=== PATIENT | female | born 1975 | race Caucasian/White ===

== ENCOUNTER → 2016-09-11 | Outpatient (REF) | payer OTHER ==
[~2016-09-11] MED LIST: IBUP600T26 PO; ONDA1TAB15 PO
[2016-09-11 13:07] LABS: BASO % 0.4 % (0.0-1.0); EOS # 0.2 K/mm3 (0.0-0.50); EOS % 2.9 % (0.0-3.0); LARGE UNSTAINED CELL # 0.1 K/mm3 (0.0-0.4); LARGE UNSTAINED CELL % 2.6 % (0.0-4.0); LYMPH % 35.1 % (24.0-44.0); MEAN CORPUSCULAR HEMOGLOBIN 30.9 pg (27.0-33.0); MEAN CORPUSCULAR VOLUME 93.5 fl (80.0-96.0); MONO # 0.3 K/mm3 (0.0-0.8); MONO % 4.8 % (0.0-5.0); NEUTROPHILS % 54.3 % (36.0-66.0); PLATELET COUNT, AUTOMATED 151 k/mm3 (150-450); RED CELL DISTRIBUTION WIDTH 12.5 % (11.5-14.5); WHITE BLOOD COUNT 5.6 K/mm3 (4.0-10.0)
[2016-09-11 13:22] LABS: CALCIUM LEVEL 8.6 MG/DL (8.5-10.1); CREATININE FOR GFR 4.34 MG/DL (0.55-1.02); GLOMERULAR FILTRATION RATE 11.8 (>58); POTASSIUM SERUM 4.1 MEQ/L (3.5-5.1)
[2016-09-11 14:31] LABS: MICROSCOPIC INDICATED? NO (NO)
== END ==
LOC: M SFHCPLAZ 11:24
PROVIDERS: ATTEND Family Medicine
DX: R50.9 Fever, unspecified (principal)

== ENCOUNTER → 2016-10-27 | Outpatient (CLI) | payer OTHER ==
[2016-10-27 18:14] LABS: ALBUMIN 3.6 GM/DL (3.2-5.2); GLOMERULAR FILTRATION RATE 10.1 (>58); PHOSPHORUS LEVEL 2.9 MG/DL (2.5-4.9); POTASSIUM SERUM 4.1 MEQ/L (3.5-5.1)
[2016-10-27 19:08] LABS: MEAN CORPUSCULAR HEMOGLOBIN 31.1 pg (27.0-33.0); MEAN CORPUSCULAR HGB CONC 32.2 g/dl (32.0-36.5); MEAN CORPUSCULAR VOLUME 96.6 fl (80.0-96.0); RED CELL DISTRIBUTION WIDTH 13.1 % (11.5-14.5); WHITE BLOOD COUNT 7.9 K/mm3 (4.0-10.0)
== END ==
LOC: M WUC 15:17
PROVIDERS: ATTEND Internal Medicine Nephrology
DX: N18.4 Chronic kidney disease, stage 4 (severe) (principal); D63.1 Anemia in chronic kidney disease; N25.81 Secondary hyperparathyroidism of renal origin; E55.9 Vitamin D deficiency, unspecified

== ENCOUNTER → 2016-12-13 | Outpatient (REF) | payer OTHER ==
[2016-12-15 09:58] LABS: HEPATITIS B SURFACE ANTIBODY NEGATIVE (POSITIVE)
== END ==
LOC: M LAB REF 17:31
PROVIDERS: ATTEND Internal Medicine Nephrology
DX: N18.6 End stage renal disease (principal)

== ENCOUNTER 2017-05-16 11:54 | Day surgery (SDC) | payer OTHER ==
[~2017-05-16] VITALS: Ht 157.5 cm; Wt 46.3 kg
[~2017-05-16 11:54] MED LIST changes: +CARV6.25 PO; +FERR325T3 PO; +IBUP-1022 PO; -IBUP600T26 PO; -ONDA1TAB15 PO; +ONDA4TAB5 PO; +RENATAB5 PO; +TYLE500T78 PO; +UNIS25TA2 PO; +VITA100067 PO
[2017-05-16] MEDS ORDERED: LR 1,000 ML IV ONE (12:30)
[2017-05-16 12:33] LABS: CONTROL LINE UCG INT CTR LINE PRESENT
[2017-05-16] MEDS ORDERED: D5W/0.2% SODIUM CHLORIDE 1,000 ML IV ONE (13:00)
[2017-05-16] MEDS ORDERED: ROCURONIUM BROMIDE 50 MG/5 ML VIAL As Ordered ONE (13:28)
[2017-05-16] MEDS ORDERED: MIDAZOLAM INJ 2 MG/2 ML VIAL (J2250) As Ordered ONE (13:28)
[2017-05-16] MEDS ORDERED: fentaNYL 100 MCG/2 ML INJECTION (J3010) As Ordered ONE (13:29)
[2017-05-16] MEDS ORDERED: PROPOFOL 200 MG/20 ML VIAL As Ordered ONE (13:29)
[2017-05-16] MEDS ORDERED: ONDANSETRON 4MG/2ML VIAL (J2405) As Ordered ONE (14:48)
[2017-05-16] MEDS ORDERED: GLYCOPYRROLATE INJ 0.2 MG/ML 2 ML VIAL As Ordered ONE (14:50)
[2017-05-16] MEDS ORDERED: LIDOCAINE 1% SDV INJ 30 ML VIAL As Ordered ONE (15:00)
[2017-05-16] MEDS ORDERED: BUPIVACAINE HCL 0.5% 30 ML VIAL As Ordered ONE (15:00)
[2017-05-16] MEDS ORDERED: HEPARIN SOD (PORCINE) 5000 UNITS/ML VIAL As Ordered ONE (15:00)
[2017-05-16] MEDS ORDERED: PERCOCET 5MG/325MG TAB As Ordered ONE ×2 (15:20→16:48)
[2017-05-16] MEDS: PERCOCET 5MG/325MG TAB PO PRN ×2 (15:25→16:55)
[2017-05-16] MEDS ORDERED: fentaNYL 100 MCG/2 ML INJECTION (J3010) IV PRN (15:30)
[2017-05-16] MEDS ORDERED: LR 1,000 ML IV SCH (15:30)
[2017-05-16] MEDS ORDERED: ONDANSETRON 4MG/2ML VIAL (J2405) IV PRN (15:30)
[2017-05-16 17:30] VITALS: BP 136/78
--- NOTE | 2017-05-17 01:02 | ECGEPIP ---
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
--- NOTE | 2017-06-21 15:01 | RO ---
DATE OF PROCEDURE: 05/16/2017 PREOPERATIVE DIAGNOSIS: End stage renal disease, functioning left brachiocephalic arteriovenous fistula. POSTOPERATIVE DIAGNOSIS: End stage renal disease, functioning left brachiocephalic arteriovenous fistula. PROCEDURE: Laparoscopic peritoneal dialysis catheter placement with a 62 cm Curl Tail Catheter placed in the peritoneal cavity. SURGEON: Eva Ulloa MD OUTBOARD SYSTEM OPERATOR: None. ANESTHESIA: General endotracheal anesthesia. ESTIMATED BLOOD LOSS: 30 mL. IV FLUIDS: 200 mL. HEPARIN: None. COMPLICATIONS: None. DRAINS: None. SPECIMENS: None. IMPLANTS: 62 cm Curl Tail Catheter in the peritoneal cavity. INDICATION: The patient is a 42-year-old female who dialyzes through a left brachiocephalic arteriovenous fistula who wishes to transition to a peritoneal dialysis and wishes to have a peritoneal dialysis catheter placed. Risks, benefits and alternative treatment options were discussed with the patient. PROCEDURE: Patient was taken to the operating room and placed supine on the operating room table and then prepped and draped in the standard surgical fashion. A 5 mm Visiport was placed in the left upper quadrant with the left scope within the Visiport under direct laparoscopic visualization after which the peritoneal cavity was insufflated with CO2. A peritoneal dialysis catheter was then brought through a puncture wound in the infraumbilical region, positioned in the pelvis under laparoscopic visualization and then the catheter was tunneled and brought out next to the 5 mm port. The abdomen was desufflated. The catheter was flushed with saline, which turned easily on egress and afterward the 5 mm port was removed. The infraumbilical incision and the incision next to the peritoneal dialysis catheter were approximated using #3-0 Monocryl suture in an inverted interrupted fashion. Steri-Strips and dressings were applied. The patient tolerated the procedure well. All instrument, sponge and needle counts were correct at the end of the case. There were no complications. Dr. Ulloa was present for and directed the entire case. The patient was transferred to the recovery room and subsequently discharged in stable condition.
[2017-06-27] MEDS ORDERED: CARV3.12 PO (03:00)
[2017-06-29] MEDS ORDERED: AMOX500T2 PO (11:45)
[2017-06-29] MEDS ORDERED: POTA10CA PO (11:46)
== END 2017-05-16 17:35 | disposition home or self-care (01) ==
LOC: M SDC 11:54
PROVIDERS: ATTEND Surgery Vascular Surgery
DX: N18.6 End stage renal disease (principal); I12.0 Hypertensive chronic kidney disease with stage 5 chronic kidney disease or end stage renal disease; R29.898 Other symptoms and signs involving the musculoskeletal system; L85.3 Xerosis cutis; Q61.9 Cystic kidney disease, unspecified; Z79.899 Other long term (current) drug therapy; Z99.2 Dependence on renal dialysis; Z86.73 Personal history of transient ischemic attack (TIA), and cerebral infarction without residual deficits; Z72.0 Tobacco use
CPT/HCPCS: 36415; 49324; 84132; 84703; 93005; C1750

== ENCOUNTER 2017-06-26 14:17 | Inpatient (IN) | payer OTHER ==
[2017-06-26 15:43] LABS: KETONE, URINE AUTO RFX NEGATIVE (NEGATIVE); LEUKOCYTE ESTERASE UR AUTO RFX NEGATIVE (NEGATIVE); NITRITE, URINE AUTO RFX NEGATIVE (NEGATIVE); RBC, URINE AUTO RFX 5 /HPF (0-3); SPECIFIC GRAVITY UR AUTO RFX 1.011 (1.002-1.035); SQUAM EPITHELIAL CELL UR AURFX 1 /HPF (0-6); WBC, URINE AUTO RFX 1 /HPF (0-3)
[2017-06-26 19:06] LABS: BASO % 0.1 % (0.0-1.0); EOS # 0.2 10^3/uL (0.0-0.50); EOS % 1.6 % (0.0-3.0); IMMATURE GRANULOCYTE # 0.1 10^3/uL (0-0); IMMATURE GRANULOCYTE % 0.5 % (0-0); LYMPH # 1.8 10^3/uL (1.5-4.5); LYMPH % 11.3 % (24.0-44.0); MEAN CORPUSCULAR HEMOGLOBIN 31.6 pg (27.0-33.0); MEAN CORPUSCULAR HGB CONC 32.6 g/dl (32.0-36.5); MEAN CORPUSCULAR VOLUME 96.9 fl (80.0-96.0); MONO # 0.9 10^3/uL (0.0-0.8); NEUTROPHILS # 12.4 10^3/uL (1.8-7.7); NEUTROPHILS % 80.5 % (36.0-66.0); PLATELET COUNT, AUTOMATED 282 10^3/uL (150-450); RED CELL DISTRIBUTION WIDTH 12.8 % (11.5-14.5); WHITE BLOOD COUNT 15.4 10^3/uL (4.0-10.0)
[2017-06-26] MEDS: NS 500 ML IV (19:09)
[2017-06-26] MEDS: MORPHINE 2 MG/ML 1ML SYRINGE IV ×2 (19:09→21:10)
[2017-06-26 19:25] LABS: INR 1.04
[2017-06-26 19:28] LABS: LACTIC ACID SEPSIS PROTOCOL 0.7 MMOL/L (0.4-2.0)
[2017-06-26 19:30] LABS: ALBUMIN 2.6 GM/DL (3.2-5.2); ALBUMIN/GLOBULIN RATIO 0.72 (1.00-1.93); ALKALINE PHOSPHATASE 57 U/L (45-117); ALT/SGPT 14 U/L (12-78); AMYLASE 25 U/L (25-115); ANION GAP 9 MEQ/L (8-16); AST/SGOT 11 U/L (7-37); BILIRUBIN,DIRECT 0.1 MG/DL (0.0-0.2); BILIRUBIN,TOTAL 0.3 MG/DL (0.2-1.0); BLOOD UREA NITROGEN 31 MG/DL (7-18); CALCIUM LEVEL 7.9 MG/DL (8.5-10.1); CARBON DIOXIDE LEVEL 29 MEQ/L (21-32); CHLORIDE LEVEL 106 MEQ/L (98-107); CREATININE FOR GFR 4.95 MG/DL (0.55-1.02); GLOMERULAR FILTRATION RATE 10.1 (>58); GLUCOSE, FASTING 80 MG/DL (70-105); POTASSIUM SERUM 3.4 MEQ/L (3.5-5.1); SODIUM LEVEL 144 MEQ/L (136-145); TOTAL PROTEIN 6.2 GM/DL (6.4-8.2)
[2017-06-26 19:41] LABS: CONTROL LINE UCG INT CTR LINE PRESENT
[2017-06-27] MEDS: PIPERACILLIN/TAZOBACTAM SOD 2.25 GM in APPROPRIATE DILUENT 1 EA IV ×3 (02:32→18:07)
[2017-06-27] MEDS: VANCOMYCIN HCL 1,000 MG, VIAL MATE ADAPTER 1 EACH in D5W 250 ML IV (03:00)
[2017-06-27] MEDS ORDERED: VANCOMYCIN INTERMITTENT/PULSE DOSING BY CLINICAL PHARMACIST PER DOSING PROTOCOL XX (03:15)
[2017-06-27] MEDS: MORPHINE 2 MG/ML 1ML SYRINGE IV ×2 (04:43→09:53)
[2017-06-27 05:09] LABS: ANION GAP 11 MEQ/L (8-16); BLOOD UREA NITROGEN 32 MG/DL (7-18); CALCIUM LEVEL 7.6 MG/DL (8.5-10.1); CARBON DIOXIDE LEVEL 24 MEQ/L (21-32); CHLORIDE LEVEL 110 MEQ/L (98-107); CREATININE FOR GFR 4.94 MG/DL (0.55-1.02); GLOMERULAR FILTRATION RATE 10.1 (>58); GLUCOSE, FASTING 71 MG/DL (70-105); POTASSIUM SERUM 3.4 MEQ/L (3.5-5.1); SODIUM LEVEL 145 MEQ/L (136-145)
[2017-06-27] MEDS: HEPARIN SOD (PORCINE) 5000 UNITS/ML VIAL SQ ×3 (09:00→21:00)
[2017-06-27] MEDS: VITAMIN D 1,000 INTERNATIONAL UNITS TABLET PO (09:50)
[2017-06-27] MEDS: FERROUS SULFATE 325MG TAB PO ×2 (09:50→20:48)
[2017-06-27] MEDS: PANTOPRAZOLE 40MG INJ (PROTONIX) (C9113) IV (09:50)
[2017-06-27] MEDS: CARVedilol 3.125 MG TAB PO ×2 (09:50→20:44)
[2017-06-27] MEDS: KCL 10MEQ IN 100ML SWI (KRUN) 10 MEQ in APPROPRIATE DILUENT 1 EA IV ×2 (12:00→12:30)
[2017-06-27 15:38] LABS: BF MONONUCLEAR CELL % 66.3 % (0-0); BF POLYMORPHONUCLEAR CELL % 33.7 % (0-0); RBC BODY FLUID < 2 10^3/uL (<2); WBC BODY FLUID 80 /uL (0-10)
[2017-06-27 15:40] LABS: BF DIFF IF INDICATED? YES (NO); PERITONEAL DIALYSATE FL COLOR PALE YELLOW (COLORLESS)
[2017-06-27 19:14] LABS: BF MONONUCLEAR CELL % 69.6 % (0-0); BF POLYMORPHONUCLEAR CELL % 30.4 % (0-0); RBC BODY FLUID < 2 10^3/uL (<2); WBC BODY FLUID 23 /uL (0-10)
[2017-06-27 19:15] LABS: BF DIFF IF INDICATED? YES (NO); PERITONEAL DIALYSATE FL COLOR COLORLESS (COLORLESS)
[2017-06-27] MEDS: POTASSIUM CHLORIDE 10 MEQ SR TABLET PO (20:48)
[2017-06-27] MEDS: ACETAMINOPHEN TAB 650MG DOSE (2X325MG) PO (22:14)
[2017-06-28] MEDS: PIPERACILLIN/TAZOBACTAM SOD 2.25 GM in APPROPRIATE DILUENT 1 EA IV ×3 (02:58→18:00)
[2017-06-28 06:57] LABS: BASO % 0.3 % (0.0-1.0); EOS # 0.3 10^3/uL (0.0-0.50); EOS % 2.4 % (0.0-3.0); IMMATURE GRANULOCYTE # 0.1 10^3/uL (0-0); IMMATURE GRANULOCYTE % 0.5 % (0-0); LYMPH # 1.9 10^3/uL (1.5-4.5); LYMPH % 15.9 % (24.0-44.0); MEAN CORPUSCULAR HEMOGLOBIN 31.5 pg (27.0-33.0); MEAN CORPUSCULAR HGB CONC 32.9 g/dl (32.0-36.5); MEAN CORPUSCULAR VOLUME 95.7 fl (80.0-96.0); MONO # 0.9 10^3/uL (0.0-0.8); MONO % 7.3 % (0.0-5.0); NEUTROPHILS # 8.7 10^3/uL (1.8-7.7); NEUTROPHILS % 73.6 % (36.0-66.0); PLATELET COUNT, AUTOMATED 267 10^3/uL (150-450); RED CELL DISTRIBUTION WIDTH 12.7 % (11.5-14.5); WHITE BLOOD COUNT 11.8 10^3/uL (4.0-10.0)
[2017-06-28 07:13] LABS: ANION GAP 10 MEQ/L (8-16); BLOOD UREA NITROGEN 27 MG/DL (7-18); CALCIUM LEVEL 7.9 MG/DL (8.5-10.1); CARBON DIOXIDE LEVEL 24 MEQ/L (21-32); CHLORIDE LEVEL 108 MEQ/L (98-107); CREATININE FOR GFR 4.65 MG/DL (0.55-1.02); GLOMERULAR FILTRATION RATE 10.9 (>58); GLUCOSE, FASTING 100 MG/DL (70-105); POTASSIUM SERUM 3.2 MEQ/L (3.5-5.1); SODIUM LEVEL 142 MEQ/L (136-145); VANCOMYCIN RANDOM 21.3 UG/ML
[2017-06-28] MEDS: HEPARIN SOD (PORCINE) 5000 UNITS/ML VIAL SQ ×2 (09:00→20:53)
[2017-06-28] MEDS: CARVedilol 3.125 MG TAB PO ×2 (09:00→20:53)
[2017-06-28] MEDS: POTASSIUM CHLORIDE 10 MEQ SR TABLET PO ×3 (09:13→20:58)
[2017-06-28] MEDS: FERROUS SULFATE 325MG TAB PO ×2 (09:13→20:58)
[2017-06-28] MEDS: PANTOPRAZOLE 40MG INJ (PROTONIX) (C9113) IV (09:13)
[2017-06-28] MEDS: VITAMIN D 1,000 INTERNATIONAL UNITS TABLET PO (09:13)
[2017-06-28] MEDS: ACETAMINOPHEN TAB 650MG DOSE (2X325MG) PO ×2 (09:14→22:24)
[2017-06-28] MEDS: VANCOMYCIN HCL 500 MG in D5W MINI-BAG PLUS 100 ML IV (17:02)
[2017-06-28] MEDS ORDERED: VANCOMYCIN HCL 750 MG, VIAL MATE ADAPTER 1 EACH in D5W 250 ML IV (18:00)
[2017-06-28] MEDS: diphenhydrAMINE 25 MG CAP PO (22:24)
[2017-06-29] MEDS: PIPERACILLIN/TAZOBACTAM SOD 2.25 GM in APPROPRIATE DILUENT 1 EA IV ×2 (02:36→11:00)
[2017-06-29 06:17] LABS: BASO % 0.2 % (0.0-1.0); EOS # 0.2 10^3/uL (0.0-0.50); EOS % 1.9 % (0.0-3.0); IMMATURE GRANULOCYTE # 0.1 10^3/uL (0-0); IMMATURE GRANULOCYTE % 0.7 % (0-0); LYMPH # 2.4 10^3/uL (1.5-4.5); LYMPH % 19.3 % (24.0-44.0); MEAN CORPUSCULAR HEMOGLOBIN 31.2 pg (27.0-33.0); MEAN CORPUSCULAR HGB CONC 32.3 g/dl (32.0-36.5); MEAN CORPUSCULAR VOLUME 96.7 fl (80.0-96.0); MONO # 0.8 10^3/uL (0.0-0.8); MONO % 6.6 % (0.0-5.0); NEUTROPHILS # 8.7 10^3/uL (1.8-7.7); NEUTROPHILS % 71.3 % (36.0-66.0); PLATELET COUNT, AUTOMATED 284 10^3/uL (150-450); RED CELL DISTRIBUTION WIDTH 12.8 % (11.5-14.5); WHITE BLOOD COUNT 12.3 10^3/uL (4.0-10.0)
[2017-06-29 06:37] LABS: ANION GAP 9 MEQ/L (8-16); BLOOD UREA NITROGEN 33 MG/DL (7-18); CALCIUM LEVEL 7.7 MG/DL (8.5-10.1); CARBON DIOXIDE LEVEL 26 MEQ/L (21-32); CHLORIDE LEVEL 112 MEQ/L (98-107); CREATININE FOR GFR 4.64 MG/DL (0.55-1.02); GLOMERULAR FILTRATION RATE 10.9 (>58); GLUCOSE, FASTING 86 MG/DL (70-105); POTASSIUM SERUM 3.6 MEQ/L (3.5-5.1); SODIUM LEVEL 147 MEQ/L (136-145); VANCOMYCIN RANDOM 23.9 UG/ML
[2017-06-29] MEDS: HEPARIN SOD (PORCINE) 5000 UNITS/ML VIAL SQ (09:00)
[2017-06-29] MEDS: PANTOPRAZOLE 40MG INJ (PROTONIX) (C9113) IV (09:19)
[2017-06-29] MEDS: FERROUS SULFATE 325MG TAB PO (09:19)
[2017-06-29] MEDS: VITAMIN D 1,000 INTERNATIONAL UNITS TABLET PO (09:19)
[2017-06-29] MEDS: POTASSIUM CHLORIDE 10 MEQ SR TABLET PO (09:19)
[2017-06-29] MEDS: CARVedilol 3.125 MG TAB PO (09:24)
== END 2017-06-29 14:21 | disposition home or self-care (01) ==
LOC: M ED INP 06-27 03:08 → M MSPAV 06-27 13:08 → M ED 14:17
DX: K81.9 Cholecystitis, unspecified (principal); K65.9 Peritonitis, unspecified; E87.0 Hyperosmolality and hypernatremia; I95.9 Hypotension, unspecified; N18.6 End stage renal disease; Q61.3 Polycystic kidney, unspecified; E87.6 Hypokalemia; D63.1 Anemia in chronic kidney disease; K57.30 Diverticulosis of large intestine without perforation or abscess without bleeding; Z79.899 Other long term (current) drug therapy; Z87.440 Personal history of urinary (tract) infections; F17.200 Nicotine dependence, unspecified, uncomplicated

== ENCOUNTER 2018-03-30 08:43 | Observation (INO) | payer MEDICARE, MEDICAID, OTHER ==
[2018-03-30] MEDS: CARVedilol 6.25 MG TAB PO ×2 (09:00→22:05)
[2018-03-30 09:20] LABS: BASO % 0.3 % (0.0-1.0); EOS # 0.2 10^3/uL (0.0-0.50); EOS % 2.2 % (0.0-3.0); HEMATOCRIT 37.1 % (36.0-47.0); HEMOGLOBIN 11.8 g/dl (12.0-15.5); IMMATURE GRANULOCYTE % 0.4 % (0-3.0); LYMPH % 25.8 % (24.0-44.0); MEAN CORPUSCULAR HEMOGLOBIN 31.9 pg (27.0-33.0); MEAN CORPUSCULAR HGB CONC 31.8 g/dl (32.0-36.5); MEAN CORPUSCULAR VOLUME 100.3 fl (80.0-96.0); MONO # 0.4 10^3/uL (0.0-0.8); MONO % 5.4 % (0.0-5.0); NEUTROPHILS # 5.2 10^3/uL (1.8-7.7); NEUTROPHILS % 65.9 % (36.0-66.0); PLATELET COUNT, AUTOMATED 150 10^3/uL (150-450); RED CELL DISTRIBUTION WIDTH 12.5 % (11.5-14.5); WHITE BLOOD COUNT 7.8 10^3/uL (4.0-10.0)
[2018-03-30 09:50] LABS: ALBUMIN 2.8 GM/DL (3.2-5.2); ALBUMIN/GLOBULIN RATIO 0.88 (1.00-1.93); ALKALINE PHOSPHATASE 33 U/L (45-117); ALT/SGPT 20 U/L (12-78); AMYLASE 91 U/L (25-115); ANION GAP 8 MEQ/L (8-16); AST/SGOT 28 U/L (7-37); BILIRUBIN,DIRECT < 0.1 MG/DL (0.0-0.2); BILIRUBIN,TOTAL 0.3 MG/DL (0.2-1.0); BLOOD UREA NITROGEN 39 MG/DL (7-18); C REACTIVE PROTEIN QUANTITATIV < 0.30 MG/DL (0.00-0.30); CALCIUM LEVEL 7.6 MG/DL (8.5-10.1); CARBON DIOXIDE LEVEL 15 MEQ/L (21-32); CHLORIDE LEVEL 122 MEQ/L (98-107); CREATININE FOR GFR 5.61 MG/DL (0.55-1.30); GLOMERULAR FILTRATION RATE 8.7 (>58); GLUCOSE, FASTING 78 MG/DL (70-100); LIPASE 514 U/L (73-393); POTASSIUM SERUM 5.5 MEQ/L (3.5-5.1); SODIUM LEVEL 145 MEQ/L (136-145)
[2018-03-30 09:54] LABS: KETONE, URINE AUTO RFX NEGATIVE (NEGATIVE); LEUKOCYTE ESTERASE UR AUTO RFX NEGATIVE (NEGATIVE); NITRITE, URINE AUTO RFX NEGATIVE (NEGATIVE); RBC, URINE AUTO RFX 1 /HPF (0-3); SPECIFIC GRAVITY UR AUTO RFX 1.009 (1.002-1.035); SQUAM EPITHELIAL CELL UR AURFX 0 /HPF (0-6); WBC, URINE AUTO RFX 0 /HPF (0-3)
[2018-03-30] MEDS ORDERED: ISOVUE-370 76% 100ML VIAL (Q9967) As Ordered (09:56)
[2018-03-30 10:01] LABS: ERYTHROCYTE SEDIMENTATION RATE 22 mm/hr (0-20)
[2018-03-30 10:08] LABS: LACTIC ACID SEPSIS PROTOCOL 0.8 MMOL/L (0.4-2.0)
[2018-03-30] MEDS: MORPHINE 2 MG/ML 1ML SYRINGE (J2270) IV (10:13)
[2018-03-30] MEDS ORDERED: BISACODYL 10 MG SUPP PR (12:00)
[2018-03-30] MEDS ORDERED: PERCOCET 5MG/325MG TAB PO (12:00)
[2018-03-30 19:00] LABS: SOURCE, BODY FLUID PERITONEAL DIALYSATE
[2018-03-30 19:01] LABS: APPEARANCE, BODY FLUID HAZY (CLEAR); BF DIFF IF INDICATED? YES (NO); PERITONEAL DIALYSATE FL COLOR PINK (COLORLESS); RBC BODY FLUID 10 10^3/uL (<2); WBC BODY FLUID 40 /uL (0-10)
[2018-03-30] MEDS: SENOKOT S TAB PO (22:05)
[2018-03-30] MEDS: diphenhydrAMINE INJ 50MG/ML VIAL (J1200) IV (22:05)
[2018-03-30] MEDS: PERCOCET 5MG/325MG TAB PO (22:06)
[2018-03-31] MEDS: ONDANSETRON 4MG/2ML VIAL (J2405) IV (04:40)
[2018-03-31 06:24] LABS: BASO % 0.4 % (0.0-1.0); EOS # 0.2 10^3/uL (0.0-0.50); EOS % 2.7 % (0.0-3.0); HEMATOCRIT 31.8 % (36.0-47.0); HEMOGLOBIN 10.2 g/dl (12.0-15.5); IMMATURE GRANULOCYTE % 0.3 % (0-3.0); LYMPH # 2.4 10^3/uL (1.5-4.5); LYMPH % 32.6 % (24.0-44.0); MEAN CORPUSCULAR HEMOGLOBIN 31.9 pg (27.0-33.0); MEAN CORPUSCULAR HGB CONC 32.1 g/dl (32.0-36.5); MEAN CORPUSCULAR VOLUME 99.4 fl (80.0-96.0); MONO # 0.5 10^3/uL (0.0-0.8); MONO % 7.4 % (0.0-5.0); NEUTROPHILS # 4.2 10^3/uL (1.8-7.7); NEUTROPHILS % 56.6 % (36.0-66.0); PLATELET COUNT, AUTOMATED 136 10^3/uL (150-450); RED CELL DISTRIBUTION WIDTH 12.8 % (11.5-14.5); WHITE BLOOD COUNT 7.3 10^3/uL (4.0-10.0)
[2018-03-31 06:40] LABS: ANION GAP 9 MEQ/L (8-16); BLOOD UREA NITROGEN 53 MG/DL (7-18); CALCIUM LEVEL 7.8 MG/DL (8.5-10.1); CARBON DIOXIDE LEVEL 18 MEQ/L (21-32); CHLORIDE LEVEL 117 MEQ/L (98-107); CREATININE FOR GFR 5.96 MG/DL (0.55-1.30); GLOMERULAR FILTRATION RATE 8.1 (>58); GLUCOSE, FASTING 72 MG/DL (70-100); POTASSIUM SERUM 4.7 MEQ/L (3.5-5.1); SODIUM LEVEL 144 MEQ/L (136-145)
[2018-03-31 08:13] LABS: BF MONONUCLEAR CELL % 79.2 % (0-0); BF POLYMORPHONUCLEAR CELL % 20.8 % (0-0); RBC BODY FLUID < 2 10^3/uL (<2); WBC BODY FLUID 24 /uL (0-10)
[2018-03-31 08:18] LABS: APPEARANCE, BODY FLUID HAZY (CLEAR); BF DIFF IF INDICATED? YES (NO); PERITONEAL FL COLOR COLORLESS (COLORLESS); SOURCE, BODY FLUID PERITONEAL
[2018-03-31] MEDS: SENOKOT S TAB PO (09:26)
[2018-03-31] MEDS: CARVedilol 6.25 MG TAB PO (09:26)
== END 2018-03-31 12:00 | disposition home or self-care (01) ==
LOC: M ED 08:43 → M ED INP 11:56 → M MSPAV 13:56
DX: K65.8 Other peritonitis (principal); N18.6 End stage renal disease; Z79.899 Other long term (current) drug therapy; E87.5 Hyperkalemia; Q61.3 Polycystic kidney, unspecified; I15.0 Renovascular hypertension; F17.210 Nicotine dependence, cigarettes, uncomplicated; E55.9 Vitamin D deficiency, unspecified
CPT/HCPCS: J1200

== ENCOUNTER 2019-04-06 12:48 | Emergency (ER) | payer MEDICARE, MEDICAID ==
[~2019-04-06] VITALS: Ht 157.5 cm; Wt 47.9 kg
[~2019-04-06 12:48] MED LIST changes: +AMOX500T2 PO; +CARV3.12 PO; +KLOR10TA76 PO; +POTA10TA16 PO; -UNIS25TA2 PO; +UNIS25TA3 PO; +VITA200015 PO
[2019-04-06 12:49] VITALS: BP 143/81
[2019-04-06] MEDS ORDERED: ADVI100T PO (12:55)
[2019-04-06] MEDS ORDERED: POTA20TA6 PO (12:55)
[2019-04-06] MEDS ORDERED: MORPHINE 2 MG/ML 1ML VIAL (J2270) IV PRN (13:45)
[2019-04-06] MEDS ORDERED: ONDANSETRON 4MG/2ML VIAL (J2405) IV ONE (13:45)
[2019-04-06 14:40] LABS: BASO % 0.3 % (0.0-1.0); EOS # 0.2 10^3/uL (0.0-0.5); HEMATOCRIT 39.3 % (36.0-47.0); HEMOGLOBIN 12.5 g/dl (12.0-15.5); LYMPH # 1.7 10^3/uL (1.5-5.0); LYMPH % 18.6 % (24.0-44.0); MEAN CORPUSCULAR HGB CONC 31.8 g/dl (32.0-36.5); MEAN CORPUSCULAR VOLUME 100.5 fl (80.0-96.0); MONO # 0.5 10^3/uL (0.0-0.8); MONO % 5.1 % (0.0-5.0); NEUTROPHILS # 6.6 10^3/uL (1.5-8.5); NEUTROPHILS % 73.8 % (36.0-66.0); PLATELET COUNT, AUTOMATED 205 10^3/uL (150-450); RED BLOOD COUNT 3.91 10^6/uL (4.00-5.40)
[2019-04-06 15:26] LABS: ALBUMIN 3.2 GM/DL (3.2-5.2); ALT/SGPT 25 U/L (12-78); BILIRUBIN,DIRECT < 0.1 MG/DL (0.0-0.2); BILIRUBIN,TOTAL 0.3 MG/DL (0.2-1.0); BLOOD UREA NITROGEN 50 MG/DL (7-18); CALCIUM LEVEL 8.1 MG/DL (8.5-10.1); CARBON DIOXIDE LEVEL 20 MEQ/L (21-32); CHLORIDE LEVEL 111 MEQ/L (98-107); CK-MB VALUE MASS 1.8 NG/ML (<3.6); CPK CREATINE PHOSPHOKINASE 124 U/L (26-192); CREATININE FOR GFR 8.55 MG/DL (0.55-1.30); GLOMERULAR FILTRATION RATE 5.3 (>58); GLUCOSE, FASTING 114 MG/DL (70-100); LIPASE 301 U/L (73-393); MB/CK RELATIVE INDEX 1.45 (< OR =4); POTASSIUM SERUM 3.7 MEQ/L (3.5-5.1); SODIUM LEVEL 143 MEQ/L (136-145); TOTAL PROTEIN 6.4 GM/DL (6.4-8.2); TROPONIN I < 0.02 NG/ML (< 0.10)
[2019-04-06] MEDS ORDERED: ISOVUE-370 76% 100ML VIAL (Q9967) As Ordered ONE (15:35)
--- NOTE | 2019-04-06 16:17 | REP ---
CT of the abdomen and pelvis with IV contrast, without bowel contrast for left upper quadrant pain. The the patient perform slightly. Comparison is 03/30/2018. There is a peritoneal dialysis catheter coiled in the abdominal right lower quadrant as previously. There is a small volume of fluid free fluid in the pelvis. There is no pneumoperitoneum. There is no evidence of loculated peritoneal fluid. Innumerable renal cysts are again identified, compatible with polycystic renal disease. Multiple hepatic cysts are again identified, also compatible with polycystic renal disease. The visualized lower lung foster demonstrate a small left pleural effusion as an interval change. The common biliary duct again measures 10 mm in diameter and is mildly dilated. This is unchanged. The pancreas and spleen are unremarkable. The adrenals are unremarkable. The abdominal aorta is unremarkable. There is no retroperitoneal adenopathy or mass. There is no bowel distension or obstruction. There is wall thickening of the descending colon. This is compatible with colitis in the appropriate clinical setting. There are diverticula in the sigmoid colon. There is no evidence of diverticulitis. The uterus and adnexa and bladder are unremarkable. Impression: Wall thickening of the descending colon compatible with colitis in the appropriate clinical setting. Peritoneal dialysis catheter. Small volume of free fluid in the pelvis. No loculated fluid is identified. Mildly chronically dilated common biliary duct, unchanged. Numerous renal and hepatic cysts compatible with polycystic renal disease, unchanged. Small left pleural effusion as an interval change. Sigmoid colon diverticulosis without diverticulitis. Electronically Signed by Max Lambert MD 04/06/2019 04:09 P
[2019-04-06] MEDS ORDERED: ONDA4TAB6 PO (16:43)
[2019-04-06] MEDS ORDERED: CIPR500T3 PO (16:43)
[2019-04-06] MEDS ORDERED: METR-265 PO (16:43)
[2019-04-06] MEDS ORDERED: metroNIDAZOLE (FLAGYL) 500 MG TAB PO ONE (16:45)
[2019-04-06] MEDS ORDERED: CIPROFLOXACIN 500 MG TAB PO ONE (16:45)
[2019-04-06] MEDS ORDERED: NORC1TAB7 PO (16:49)
--- NOTE | 2019-04-06 20:32 | ECGEPIP ---
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
== END 2019-04-06 17:05 | disposition home or self-care (01) ==
LOC: M ED 12:48
DX: K52.9 Noninfective gastroenteritis and colitis, unspecified (principal); K57.30 Diverticulosis of large intestine without perforation or abscess without bleeding; J91.8 Pleural effusion in other conditions classified elsewhere; I12.0 Hypertensive chronic kidney disease with stage 5 chronic kidney disease or end stage renal disease; N18.6 End stage renal disease; Q61.3 Polycystic kidney, unspecified
CPT/HCPCS: 74177; 80048; 80076; 81001; 82550; 82553; 83690; 84484; 85025; 87086; 93005; 93041; 96374; 96375; 99284; J2270; J2405; Q9967

== ENCOUNTER → 2019-11-30 | Outpatient (CLI) | payer MEDICAID ==
[~2019-11-30] MED LIST changes: +ADVI100T PO; +AURY1TAB PO; +CALC1CAP31 PO; +CIPR500T3 PO; +LOSA25TA14 PO; +METR-265 PO; +NORC1TAB7 PO; +ONDA-83 PO; -ONDA4TAB5 PO; +ONDA4TAB6 PO; +PERC5TAB12 PO; +POTA20TA6 PO; +VITA50005 PO
== END ==
LOC: M LABSMTC 11:16
PROVIDERS: ATTEND Anesthesiology
DX: Z01.818 Encounter for other preprocedural examination (principal); Z11.59 Encounter for screening for other viral diseases
CPT/HCPCS: C9803; U0003

== ENCOUNTER 2019-12-03 09:48 | Day surgery (SDC) | payer MEDICARE, MEDICAID ==
[~2019-12-03] VITALS: Ht 157.5 cm; Wt 49.0 kg
[~2019-12-03 09:48] MED LIST changes: -LOSA25TA14 PO; -PERC5TAB12 PO
[2019-12-03] MEDS ORDERED: LIDOCAINE 2% 100MG/5ML SDV (FOR ANES.) As Ordered ONE (10:30)
[2019-12-03] MEDS ORDERED: MIDAZOLAM INJ 2MG/2ML VIAL (J2250 PER 1MG) As Ordered ONE (10:30)
[2019-12-03] MEDS ORDERED: dexameTHASONE 4 MG/ML 1ML VIAL (J1100 PER 1MG) As Ordered ONE (10:30)
[2019-12-03] MEDS ORDERED: propofoL 200 MG/20 ML VIAL As Ordered ONE (10:30)
[2019-12-03] MEDS ORDERED: ONDANSETRON 4MG/2ML VIAL As Ordered ONE (10:30)
[2019-12-03] MEDS ORDERED: fentaNYL 250 MCG/5 ML INJECTION (J3010) As Ordered ONE (10:30)
[2019-12-03 10:42] LABS: POTASSIUM SERUM 4.6 MEQ/L (3.5-5.1)
[2019-12-03] MEDS ORDERED: LOSA25TA14 PO (10:44)
[2019-12-03] MEDS: D5W/0.2% SODIUM CHLORIDE 1,000 ML IV ONE (10:45)
[2019-12-03] MEDS: LIDOCAINE 1% SDV 30ML VIAL As Ordered ONE (11:26)
[2019-12-03] MEDS: ISOVUE-300 61% 50ML VIAL As Ordered ONE (11:27)
[2019-12-03] MEDS: HEPARIN SOD (PORCINE) 5000UNITS/ML VIAL (J1644 PER 1000UNITS) As Ordered ONE (11:27)
[2019-12-03] MEDS: ceFAZolin SOD 2 GM in IV 1 EA IV ONE (13:35)
[2019-12-03] MEDS ORDERED: ePHEDrine SULFATE 25 MG/5 ML(5MG/ML) SYRINGE As Ordered ONE (13:48)
[2019-12-03] MEDS: LIDOCAINE W/EPINEPHRINE 1% 20ML VIAL As Ordered ONE (13:55)
--- NOTE | 2019-12-03 14:26 | ROOPDOC ---
[facility] Report Of Operation Report of Operation DATE OF PROCEDURE: 12/03/19 PREPROCEDURE DIAGNOSES: CHF secondary to left brachial cephalic AV fistula POSTPROCEDURE DIAGNOSES: Same PROCEDURE: Ligation left brachial cephalic AV fistula and ligation of branches. SURGEON: Peggy Kaplan MD ANESTHESIA: LMA and local. INDICATION FOR PROCEDURE: Ms. Varela is a 44-year-old patient with renal insufficiency and a left upper extremity brachiocephalic AV fistula created by another physician that she is not using for dialysis, and recently she's developed congestive heart failure. The suspicion is that the fistula is resulting in heart failure. Since she is not using the fistula for dialysis, the risks benefits and alternatives to fistula ligation were explained to the patient she was agreeable to proceed. Informed consent was obtained. REPORT OF OPERATION: The patient was brought to the OR in stable condition and placed supine on the OR table. Anesthesia and antibiotics were administered without complication. Her left upper extremity was prepped and draped in a sterile fashion. A timeout was performed. Local anesthesia was administered to the skin and subcutaneous tissue over the left antecubital crease at the area of the previous surgical incision. An incision was made over the previous incision and carried carefully down through the dermal tissue to the very superficial an aneurysmal cephalic vein near the AV anastomosis. First, a couple of large branches around fistula were suture ligated. Next, we carefully dissected around the aneurysmal portion of the fistula vein and 2 silk sutures were used to ligate the fistula. We irrigated with saline. The deep tissues were approximated with a running 4-0 Vicryl suture. The skin was closed with running subcuticular Monocryl suture. Mastisol and Steri-Strips were placed over the incision after was cleaned and dried. Of 2 x 2 and small Tegaderm were placed over the Steri- Strips. An Albert wrap was placed from the hand to the axilla to help compress the fistula in the hopes that the aneurysmal portions might decompress and hopefully diminish in size somewhat. The patient was allowed to awaken from anesthesia was taken to recovery in stable condition. She tolerated the procedure and the anesthesia well. There were no complications. ESTIMATED BLOOD LOSS: Approximately 2 mL. COMPLICATIONS: None. PLAN: We will see the patient in a week to check her incision. Ok to remove albert wrap to shower, but no tub baths/swimming/jacuzzi for 2 weeks. Replace albert wrap LUE after shower. Try to wear albert wrap as much as possible over the next week. Steri strips should be left in place for 7 days to help with incision healing. Ok to remove tegaderm and 2 x 2 gauze tomorrow and leave steri strips open to air. No strenuous exercise or lifting >5 lbs with left arm for 1 week. Ok to resume home diet and medications. We appreciate the opportunity to participate in the care of this patient. PEGGY KAPLAN MD Dec 03, 2019 14:26
[2019-12-03] MEDS ORDERED: PERC5TAB12 PO (14:29)
[2019-12-03] MEDS ORDERED: fentaNYL 100 MCG/2 ML INJECTION (J3010) IV PRN (14:45)
[2019-12-03] MEDS ORDERED: HYDROMORPHONE HCL 0.5 MG/ 0.5 ML SYRINGE (J1170 PER 1) IV PRN (14:45)
[2019-12-03] MEDS ORDERED: oxyCODONE 5MG TAB PO PRN (14:45)
[2019-12-03] MEDS ORDERED: ONDANSETRON 4MG/2ML VIAL IV PRN (14:45)
[2019-12-03 15:45] VITALS: BP 143/94
--- NOTE | 2019-12-04 08:38 | ECGEPIP ---
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 Electronically Signed on 12-04-2019 8:38:03 EDT by Karsten Gauthier
== END 2019-12-03 16:15 | disposition home or self-care (01) ==
LOC: M SDC 09:48
PROVIDERS: ATTEND Surgery Vascular Surgery
DX: N18.9 Chronic kidney disease, unspecified (principal); I50.9 Heart failure, unspecified
CPT/HCPCS: 36415; 37607; 81025; 84132; 93005; J0690; J1100; J1644; J2250; J2405; J3010

== ENCOUNTER 2020-11-03 17:25 | Inpatient (IN) | payer MEDICARE, MEDICAID ==
[~2020-11-03] VITALS: Ht 157.5 cm; Wt 50.0 kg
[~2020-11-03 17:25] MED LIST changes: +LOSA25TA14 PO; +PERC5TAB12 PO
[2020-11-03] MEDS ORDERED: ATOR1TAB19 (17:35)
[2020-11-03] MEDS ORDERED: AMLO2.5T3 (17:35)
[2020-11-03] MEDS ORDERED: GABA-282 (17:35)
[2020-11-03] MEDS ORDERED: HYDR-3910 (17:35)
[2020-11-03] MEDS ORDERED: MORPHINE 4 MG/ML 1ML VIAL/SYRINGE (J2270) IV ONE (20:15)
[2020-11-03 20:32] LABS: BASO % 0.3 % (0.0-1.0); EOS # 0.3 10^3/uL (0.0-0.5); EOS % 2.5 % (0.0-3.0); HEMATOCRIT 34.2 % (36.0-47.0); HEMOGLOBIN 10.6 g/dl (12.0-15.5); LYMPH # 1.3 10^3/uL (1.5-5.0); LYMPH % 11.6 % (24.0-44.0); MEAN CORPUSCULAR HEMOGLOBIN 31.5 pg (27.0-33.0); MEAN CORPUSCULAR VOLUME 101.8 fl (80.0-96.0); MONO # 0.9 10^3/uL (0.0-0.8); MONO % 8.4 % (2.0-8.0); NEUTROPHILS # 8.6 10^3/uL (1.5-8.5); NEUTROPHILS % 76.8 % (36.0-66.0); PLATELET COUNT, AUTOMATED 252 10^3/uL (150-450); RED BLOOD COUNT 3.36 10^6/uL (4.00-5.40); WHITE BLOOD COUNT 11.2 10^3/uL (4.0-10.0)
[2020-11-03 20:52] LABS: ALBUMIN 3.3 GM/DL (3.2-5.2); BILIRUBIN,DIRECT 0.1 MG/DL (0.0-0.2); BILIRUBIN,TOTAL 0.3 MG/DL (0.2-1.0); TOTAL PROTEIN 6.6 GM/DL (6.4-8.2)
[2020-11-03] MEDS ORDERED: DOCUSATE SODIUM 100MG CAPSULE PO SCH (21:00)
[2020-11-03 22:13] LABS: CALCIUM LEVEL 9.2 MG/DL (8.5-10.1); GLOMERULAR FILTRATION RATE 2.8 (>58); POTASSIUM SERUM 4.8 MEQ/L (3.5-5.1)
--- NOTE | 2020-11-03 23:30 | REPVR ---
PROCEDURE INFORMATION: Exam: CT Abdomen And Pelvis Without Contrast Exam date and time: 11/03/2020 10:22 PM Age: 45 years old Clinical indication: Abdominal pain; Localized; Left lower quadrant (llq); Additional info: Llq pain (no contrast renal failure) TECHNIQUE: Imaging protocol: Computed tomography of the abdomen and pelvis without contrast. Radiation optimization: All CT scans at this facility use at least one of these dose optimization techniques: automated exposure control; mA and/or kV adjustment per patient size (includes targeted exams where dose is matched to clinical indication); or iterative reconstruction. COMPARISON: CT ABD/PEL W/IV CONTRAST ONLY 04/06/2019 3:51 PM FINDINGS: Tubes, catheters and devices: There is a small amount of pneumoperitoneum but probably introduced from the indwelling peritoneal dialysis catheter. The catheter extends from the region of the umbilicus into the peritoneal cavity and is looped in the right lower quadrant and pelvis. It might be helpful to the give the patient oral contrast and repeat the CT in 3-4 hours. This would help to evaluate for the integrity of bowel since there are bubbles of air. Lungs: Clear lung bases. Heart: The heart is normal in size and there is no pericardial effusion. Liver: There is a 6.6 cm cyst extending anteriorly from the left lobe of the liver. Additional small cysts are identified through the liver. Gallbladder and bile ducts: Normal appearing gallbladder. Pancreas: normal pancreas. Spleen: Normal appearing spleen. Adrenal glands: No evidence of adrenal gland enlargement. Kidneys and ureters: There is very severe polycystic kidney disease with cysts throughout both kidneys too numerous to count and massive enlargement of both kidneys. There is a small amount of renal tissue between these cystic areas. Stomach and bowel: There is moderate thickening of the bowel wall of the transverse colon and hepatic flexure suspicious for focal colitis. Colitis can be caused from inflammation, infection and ischemia. It should also be noted that the peritoneal dialysis catheter traverses below the transverse colon and abuts the right colon. Intraperitoneal space: There is a small amount of fluid in the left pararenal space and in the pelvis. There was fluid within the abdomen in 2019. The catheter was also present in 2019. Vasculature: The aorta is normal in size. Lymph nodes: Small lymph nodes along the aorta. Urinary bladder: Normal urinary bladder. Reproductive: Normal uterus. Bones/joints: Unremarkable. No acute fracture. Soft tissues: Unremarkable. IMPRESSION: 1. There is a small amount of pneumoperitoneum which is probably secondary to the peritoneal dialysis catheter. CT with oral contrast to further evaluate for this. 2. There is moderate thickening of the bowel wall of the transverse colon, hepatic flexure and right colon probably secondary to colitis. This may be inflammatory or infectious colitis and related to irritation from the indwelling peritoneal dialysis catheter which abuts transverse colon and right colon. 3. Massively enlarged kidneys with polycystic kidney. 4. It would be helpful to give the patient oral contrast and wait approximately 3-4 hours to opacify all of the bowel. This would better evaluate the transverse colon and also help exclude any possibility of bowel perforation. 5. Findings were discussed with SHAMA RALPH at 11/03/2020 11:24 PM EDT. COMMENTS: Consistent with the [employer]'s Incidental Findings Committee white paper (J Am Reji Radiol 2018): Any incidental renal lesion less than 1 cm or classified as too small to characterize, or any incidental cystic renal lesion characterized as simple-appearing, is likely benign. No follow-up imaging is recommended for these lesions per consensus recommendations based on imaging criteria. Electronically signed by: Abraham Dover On 11/03/2020 23:30:16 PM
[2020-11-04] MEDS ORDERED: MORPHINE 4 MG/ML 1ML VIAL/SYRINGE (J2270) IV ONE ×2 (00:20→04:50)
[2020-11-04] MEDS ORDERED: MAALOX 30 ML SUSP *UDC PO PRN (01:20)
[2020-11-04] MEDS ORDERED: MOM 30ML SUSPENSION UDC PO PRN (01:20)
[2020-11-04] MEDS ORDERED: ACETAMINOPHEN TAB 650MG DOSE (2X325MG) PO PRN (01:20)
[2020-11-04] MEDS ORDERED: CARV12.5 PO (01:22)
[2020-11-04] MEDS ORDERED: VELP5CHW PO (01:22)
[2020-11-04] MEDS ORDERED: VITA50005 PO (01:22)
[2020-11-04] MEDS ORDERED: HYDR-3910 PO (01:22)
[2020-11-04] MEDS ORDERED: MUPI2OI EXT (01:22)
[2020-11-04] MEDS ORDERED: AURY1TAB PO (01:22)
[2020-11-04] MEDS ORDERED: LOSA100T50 PO (01:22)
[2020-11-04] MEDS ORDERED: NEUR300C PO (01:22)
[2020-11-04] MEDS ORDERED: AMLO2.5T3 PO (01:22)
[2020-11-04] MEDS ORDERED: ATOR1TAB19 PO (01:22)
--- NOTE | 2020-11-04 01:31 | HPEPDOC ---
[facility] Medical History & Physical Date of Admission November 04, 2020 Date of Service: November 04, 2020 History and Physical CHIEF COMPLAINT: Abdominal discomfort HISTORY OF PRESENT ILLNESS: 45 F hx ESRD on PD due to early cystic kidneys presents with abdominal discomfort and diarrhea for the past 3 days. She tells me that starting on Sunday she's been having diarrhea as well as intermittent abdominal discomfort with cramping especially along the lower abdomen specifically not near her peritoneal dialysis catheter. She's also had a poor appetite and decreased food and fluid intake for the past 3 days. Tells me that she was eating in the garden with her family on Sunday and thinks she might of eaten something bad as her sym ptoms started that evening and she had different food from the rest of her family none of whom share similar symptoms. Tells me the abdominal discomfort does not radiate and she's not had similar episodes in the past. She denies a fever or chills denies associated symptoms such as chest pain shortness of breath or dysuria. In the emergency department CT findings were suggestive of infectious colitis. Repeat CT with contrast was done to rule out perforation. Patient will be admitted to medical service for further management. PAST MEDICAL/SURGICAL HISTORY: ESRD on PD Polycystic kidney disease History of intracranial bleed due to aneurysm 2016 s/p coiling of one and clipping of another Frequent UTIs when younger History of migraine headaches which resolved Left arm fistula formation and removal SOCIAL HISTORY: Endorses daily tobacco use Denies illicit drug use FAMILY HISTORY: Reviewed and none contributory to this admission ALLERGIES: Please see below. REVIEW OF SYSTEMS: 10 point review of systems complete all negative otherwise stated in HPI HOME MEDICATIONS: Please see below. PHYSICAL EXAMINATION: Constitutional: Awake and alert, in no apparent distress ENT: Sclera are clear. Mucosa is moist. Respiratory: Lungs CTA bilaterally. No respiratory distress. Cardiovascular: RRR S1 and S2 are normal, no murmur Gastrointestinal: Abdomen is soft, non distended, surprisingly non tender to light and deep palpation, BS present. Musculoskeletal: No lower extremity edema. Neurologic: No focal neurological deficit. Mental Status: A&O x3, normal affect Skin: Warm, dry LABORATORY DATA: See below. IMAGING: See chart CT abdo/pelvis: IMPRESSION: 1. There is a small amount of pneumoperitoneum which is probably secondary to the peritoneal dialysis catheter. CT with oral contrast to further evaluate for this. 2. There is moderate thickening of the bowel wall of the transverse colon, hepatic flexure and right colon probably secondary to colitis. This may be inflammatory or infectious colitis and related to irritation from the indwelling peritoneal dialysis catheter which abuts transverse colon and right colon. 3. Massively enlarged kidneys with polycystic kidney. 4. It would be helpful to give the patient oral contrast and wait approximately 3-4 hours to opacify all of the bowel. This would better evaluate the transverse colon and also help exclude any possibility of bowel perforation. MICROBIOLOGY: Please see below. ASSESSMENT/PLAN 45 F hx ESRD on PD due to early cystic kidneys presents with abdominal discomfort findings suggestive of infectious colitis admitted for medical management. # Abdominal discomfort: possibly infectious gastroenteritis given her history of diarrhea, and CT findings as above. Physical exam benign as above. Started IV cipro and flagyl. Fu BCx. Fu GI panel. Gentle IV fluids. Pain control. - SBP is less likely given her benign physical exam and CT findings however given that she is a PD patient, I ordered peritoneal fluid for cell count to be sure. - Ordered CT abdomen/pelvis with oral contrast to rule out perforation per radiologist recommendations. Follow up results. # ESRD on PD: due to polycystic kidneys. nephrology consulted for management # hx of brain aneurysm with intracranial bleed 2016 # SCD prophylaxis: patient is ambulating. Given history of ICH is a relative contraindication ill hold off on chemical prophylaxis and use TEDs/SCDs only. A Yousef Hospitalist Vital Signs Vital Signs Date Time Temp Pulse Resp B/P (MAP) Pulse Ox O2 Delivery O2 Flow Rate FiO2 11/04/20 00:29 18 Room Air 11/03/20 20:38 97.5 106 139/96 100 Laboratory Data Labs 24H Laboratory Tests 2 11/03/20 18:35: Immature Granulocyte % (Auto) 0.4, Neutrophils (%) (Auto) 76.8H, Lymphocytes (%) (Auto) 11.6L, Monocytes (%) (Auto) 8.4H, Eosinophils (%) (Auto) 2.5, Basophils (%) (Auto) 0.3, Neutrophils # (Auto) 8.6H, Lymphocytes # (Auto) 1.3L, Monocytes # (Auto) 0.9H, Eosinophils # (Auto) 0.3, Basophils # (Auto) 0.0, Nucleated Red Blood Cells % (auto) 0.0, Anion Gap 12, Glomerular Filtration Rate 2.8L, Calcium Level 9.2, Total Bilirubin 0.3, Direct Bilirubin 0.1, Aspartate Amino Transf (AST/SGOT) 13, Alanine Aminotransferase (ALT/SGPT) 22, Alkaline Phosphatase 37L, PH-Cji-H-Type Natriuretic Peptide 868H, Total Protein 6.6, Albumin 3.3, Albumin/Globulin Ratio 1.0L, Lipase 197 11/03/20 20:45: POC Glucose (Misc Panel) 68L, POC Sodium (Misc Panel) 139, POC Potassium (Misc Panel) 4.7, POC Chloride (Misc Panel) 110H, POC Total CO2 (Misc Panel) 19.0L, POC Blood Urea Nitrogen (Misc Panel 72H, POC Ionized Calcium (Misc Panel) 4.6, POC Creatinine (Misc Panel) 16.7H, POC Hematocrit (Misc Panel) 30.0L, Lactic Acid Level 0.6 CBC/BMP Laboratory Tests 11/03/20 18:35 Home Medications Scheduled Amlodipine Besylate (Amlodipine Besylate) 2.5 Mg Tablet, 2.5 MG PO DAILY Atorvastatin Calcium (Atorvastatin Calcium) 10 Mg Tablet, 10 MG PO DAILY Calcitriol (Calcitriol) 0.25 Mcg Capsule, 0.25 MCG PO Q2D Carvedilol (Carvedilol) 12.5 Mg Tablet, 12.5 MG PO BID Ergocalciferol (Vitamin D2) (Vitamin D2) 50,000 Units Cap, 50,000 UNITS PO Q2WK EVERY OTHER SUNDAY Ferric Citrate (Auryxia) 210 Mg Tablet, 630 MG PO WM Folic Acid/Vit B Complex and C (Maren-Karime Tablet) 1 Tab Tab, 1 TAB PO DAILY Gabapentin (Neurontin) 300 Mg Capsule, 300 MG PO QHS Hydralazine HCl (Hydralazine HCl) 25 Mg Tablet, 25 MG PO BID Losartan Potassium (Losartan Potassium) 100 Mg Tablet, 100 MG PO DAILY Mupirocin (Mupirocin) 2 % Oint...g., 1 DOSE EXT DAILY APPLY TO DIALYSIS SITE Sucroferric Oxyhydroxide (Velphoro) 500 Mg Tab.chew, 1,000 MG PO WM Allergies Coded Allergies: No Known Drug Allergies (Verified Allergy, Unknown, 11/19/19) A-FIB/CHADSVASC A-FIB History Current/History of A-Fib/PAF?: No YOUSEF,ENEIDA Viera MD November 04, 2020 01:31
[2020-11-04] MEDS: GASTROGRAFIN SOLUTION 30ML PO SCH ×2 (01:32→01:55)
[2020-11-04] MEDS ORDERED: NS 1,000 ML IV SCH (01:40)
[2020-11-04] MEDS ORDERED: CIPROFLOXACIN 200 MG in IV 1 EA IV SCH (03:00)
[2020-11-04] MEDS ORDERED: ONDANSETRON 4MG/2ML VIAL IV ONE (03:10)
[2020-11-04 03:16] LABS: RSV AMPLIFICATION NEGATIVE (NEGATIVE)
[2020-11-04] MEDS ORDERED: metroNIDAZOLE 500 MG in IV 1 EA IV SCH (04:00)
--- NOTE | 2020-11-04 05:42 | REPVR ---
PROCEDURE INFORMATION: Exam: CT Abdomen And Pelvis Without Contrast Exam date and time: 11/04/2020 12:27 AM Age: 45 years old Clinical indication: Other: See prev CT report; Additional info: ? Pneumoperitoneum on previous CT no contrast TECHNIQUE: Imaging protocol: Computed tomography of the abdomen and pelvis without contrast. Radiation optimization: All CT scans at this facility use at least one of these dose optimization techniques: automated exposure control; mA and/or kV adjustment per patient size (includes targeted exams where dose is matched to clinical indication); or iterative reconstruction. COMPARISON: 1. CT ABD PELVIS W/O CONTRAST 11/03/2020 10:[address] ABD/PEL W/IV CONTRAST ONLY 04/06/2019 3:51:46 PM FINDINGS: Tubes, catheters and devices: There is a Tenckhoff catheter in the pelvis. Lungs: The visualized portions of the lung bases are normal. Liver: There are multiple hepatic cysts, particularly in the left lobe of the liver, unchanged and consistent with the polycystic kidney disease. Gallbladder and bile ducts: There is stable, mild biliary ductal dilation. The gallbladder is normal with no stones or biliary ductal dilation. Pancreas: The pancreas appears unremarkable. No pancreatic ductal dilation identified. Spleen: The unenhanced spleen appears unremarkable. Adrenal glands: The adrenal glands are poorly distinguished. Kidneys and ureters: The kidneys are replaced and expanded by multiple cysts bilaterally, consistent with polycystic kidney disease. Stomach and bowel: There is long segment thickening the entire colon with less pronounced thickening in the rectosigmoid colon. There is a small amount of oral contrast in the small bowel. There is no dilation or thickening of the small bowel. Appendix: The appendix is normal in size. There is intraluminal calcification appendicoliths. Intraperitoneal space: There is a small amount of free fluid in the abdomen and pelvis, which may be residual from peritoneal dialysis. No free intraperitoneal air is appreciated at this time. There is no extravasation of oral contrast. Vasculature: No aortic aneurysm. Lymph nodes: There are multiple small para-aortic lymph nodes. No gross lymphadenopathy is seen. Urinary bladder: The bladder is mostly collapsed. No bladder stones are identified. Reproductive: The uterus is unremarkable. Bones/joints: No suspicious osseous lesions. No acute fractures. Soft tissues: There is is fluid density struck within the subcutaneous tissues of the mid anterior abdominal wall adjacent to the catheter site, which was present previously but appears smaller than on the prior exam April, probably a small seroma related to the catheter. IMPRESSION: 1. There is no persistent free air. A small amount of free fluid is probably related to peritoneal dialysis. 2. Polycystic kidney disease with expansion and replacement of the renal parenchyma by cysts as well as multiple cysts in the liver. 3. Long segment prominent thickening of the wall of the colon with less pronounced thickening in the rectosigmoid colon, indicating a nonspecific colitis, likely infectious or inflammatory in etiology. COMMENTS: Consistent with the [employer]'s Incidental Findings Committee white paper (J Am Reji Radiol 2018): Any incidental renal lesion less than 1 cm or classified as too small to characterize, or any incidental cystic renal lesion characterized as simple-appearing, is likely benign. No follow-up imaging is recommended for these lesions per consensus recommendations based on imaging criteria. Electronically signed by: Mari Mcmullen On 11/04/2020 05:42:38 AM
[2020-11-04 06:43] LABS: HEMATOCRIT 29.8 % (36.0-47.0); HEMOGLOBIN 9.3 g/dl (12.0-15.5); MEAN CORPUSCULAR HEMOGLOBIN 31.6 pg (27.0-33.0); MEAN CORPUSCULAR HGB CONC 31.2 g/dl (32.0-36.5); MEAN CORPUSCULAR VOLUME 101.4 fl (80.0-96.0); PLATELET COUNT, AUTOMATED 204 10^3/uL (150-450); RED BLOOD COUNT 2.94 10^6/uL (4.00-5.40); WHITE BLOOD COUNT 11.2 10^3/uL (4.0-10.0)
[2020-11-04 07:10] LABS: ALBUMIN 2.7 GM/DL (3.2-5.2); BILIRUBIN,TOTAL 0.3 MG/DL (0.2-1.0); CALCIUM LEVEL 8.3 MG/DL (8.5-10.1); GLOMERULAR FILTRATION RATE 2.6 (>58); POTASSIUM SERUM 4.4 MEQ/L (3.5-5.1); TOTAL PROTEIN 5.9 GM/DL (6.4-8.2)
[2020-11-04] MEDS: PANTOPRAZOLE 40MG VIAL (C9113 PER 1) IV SCH (09:06)
[2020-11-04] MEDS: CARVedilol 12.5 MG TAB PO SCH ×2 (09:07→20:09)
[2020-11-04 10:54] VITALS: BP 118/76
[2020-11-04] MEDS ORDERED: MORPHINE 2 MG/ML 1ML VIAL (J2270) IV PRN (11:30)
[2020-11-04] MEDS: ATORVASTATIN 10 MG TAB PO SCH (12:33)
[2020-11-04] MEDS: **hydrALAZINE HCL** 25 MG TAB PO SCH ×2 (12:33→20:10)
[2020-11-04] MEDS: LOSARTAN 50MG TABLET PO SCH (12:33)
[2020-11-04] MEDS: metroNIDAZOLE 500 MG in IV 1 EA IV SCH ×2 (12:34→20:01)
--- NOTE | 2020-11-04 12:52 | IPNPDOC ---
Text Note Date of Service The patient was seen on 11/04/20. NOTE Subjective: No any acute events overnight. Patient stated that she doesn't have nausea, fever, but she has lower abdominal pain, constant. Objective: GENERAL APPEARANCE: NAD HEENT: no scleral icterus, no JVD, EOMI CARDIOVASCULAR: S1S2 LUNGS: CTA ABDOMEN: soft & mildly tender w palpitation in the low abdominal quadrants, peritoneal dialysis catheter in place MUSCULOSKELETAL: no cyanosis, no swelling INTEGUMENT: no generalized pallor NEUROLOGICAL: cranial nerve function from 2-12 intact intact, follows commands, speech not dysarthric Assessment and plan Patient is 45 years old male with past medical history of end-stage renal diseases on peritoneal dialysis presented with abdominal pain. Abdominal pain Patient afebrile, does not have severe abdominal pain, she has mild leukocytosis CT abdomen pelvis showed moderate thickening of the bowel wall of the transverse colon, hepatic flexure and right colon probably secondary to colitis To rule out peritonitis we will check peritoneal dialysate Continue treatment with ciprofloxacin IV and metronidazole IV Nephrology team follows her Polycystic kidney diseases/end-stage renal diseases Follow up with nuclear medicine chief technologist in the outpatient settings History of brain aneurysm History of intracranial bleed in 2016 Hypertension Continue home meds VS,Fishbone, I+O VS, Fishbone, I+O Laboratory Tests 11/03/20 18:35 11/04/20 06:30 Vital Signs Date Time Temp Pulse Resp B/P (MAP) Pulse Ox O2 Delivery O2 Flow Rate FiO2 11/04/20 10:54 98.9 95 20 118/76 (90) 98 Room Air FERMÍN JOHNSON November 04, 2020 12:52
[2020-11-04 14:00] VITALS: BP 96/58
[2020-11-04] MEDS: ONDANSETRON 4MG/2ML VIAL IV SCH ×2 (14:45→20:09)
[2020-11-04] MEDS ORDERED: CIPROFLOXACIN 400 MG in IV 1 EA IV SCH (15:00)
[2020-11-04 15:21] LABS: APPEARANCE, BODY FLUID HAZY (CLEAR); PERITONEAL DIALYSATE FL COLOR COLORLESS (COLORLESS); SOURCE, BODY FLUID PERITONEAL DIALYSATE
[2020-11-04] MEDS: GABAPENTIN 300 MG CAP PO SCH (20:09)
[2020-11-04 22:00] VITALS: BP 109/58
[2020-11-05] MEDS: ONDANSETRON 4MG/2ML VIAL IV SCH ×5 (03:00→21:03)
[2020-11-05] MEDS: metroNIDAZOLE 500 MG in IV 1 EA IV SCH ×2 (04:04→12:20)
[2020-11-05 06:00] VITALS: BP 100/63
[2020-11-05 07:23] LABS: BASO % 0.3 % (0.0-1.0); EOS # 0.3 10^3/uL (0.0-0.5); HEMATOCRIT 25.7 % (36.0-47.0); HEMOGLOBIN 7.9 g/dl (12.0-15.5); LYMPH # 2.1 10^3/uL (1.5-5.0); LYMPH % 29.2 % (24.0-44.0); MEAN CORPUSCULAR HEMOGLOBIN 30.9 pg (27.0-33.0); MEAN CORPUSCULAR HGB CONC 30.7 g/dl (32.0-36.5); MEAN CORPUSCULAR VOLUME 100.4 fl (80.0-96.0); MONO # 0.7 10^3/uL (0.0-0.8); NEUTROPHILS % 56.1 % (36.0-66.0); PLATELET COUNT, AUTOMATED 186 10^3/uL (150-450); RED BLOOD COUNT 2.56 10^6/uL (4.00-5.40); WHITE BLOOD COUNT 7.1 10^3/uL (4.0-10.0)
[2020-11-05 07:53] LABS: ALBUMIN 2.7 GM/DL (3.2-5.2); BILIRUBIN,TOTAL 0.4 MG/DL (0.2-1.0); CREATININE FOR GFR 14.8 MG/DL (0.55-1.30); GLOMERULAR FILTRATION RATE 2.8 (>58); MAGNESIUM LEVEL 2.6 MG/DL (1.8-2.4); POTASSIUM SERUM 4.2 MEQ/L (3.5-5.1); TOTAL PROTEIN 5.4 GM/DL (6.4-8.2)
[2020-11-05] MEDS: **hydrALAZINE HCL** 25 MG TAB PO SCH ×2 (09:00→21:05)
[2020-11-05] MEDS: LOSARTAN 50MG TABLET PO SCH (09:00)
[2020-11-05] MEDS ORDERED: CALCITRIOL 0.25 MCG CAP (S0169) PO SCH (09:00)
[2020-11-05] MEDS: CARVedilol 12.5 MG TAB PO SCH ×2 (10:01→21:04)
[2020-11-05] MEDS: PANTOPRAZOLE 40MG VIAL (C9113 PER 1) IV SCH (10:01)
[2020-11-05] MEDS: ATORVASTATIN 10 MG TAB PO SCH (10:01)
[2020-11-05 11:02] LABS: HEMATOCRIT 27.7 % (36.0-47.0); HEMOGLOBIN 8.8 g/dl (12.0-15.5); MEAN CORPUSCULAR HEMOGLOBIN 31.9 pg (27.0-33.0); MEAN CORPUSCULAR HGB CONC 31.8 g/dl (32.0-36.5); MEAN CORPUSCULAR VOLUME 100.4 fl (80.0-96.0); PLATELET COUNT, AUTOMATED 206 10^3/uL (150-450); RED BLOOD COUNT 2.76 10^6/uL (4.00-5.40); WHITE BLOOD COUNT 8.1 10^3/uL (4.0-10.0)
[2020-11-05] MEDS ORDERED: ZOFR4TAB16 PO (11:14)
[2020-11-05] MEDS ORDERED: METR-265 PO (11:14)
[2020-11-05] MEDS ORDERED: CIPR-249 PO (11:14)
[2020-11-05 11:32] LABS: PERCENT SATURATION 37.6 % (13.2-45.0)
--- NOTE | 2020-11-05 11:56 | DS.PDOC ---
Discharge Summary General Date of Admission November 04, 2020 at 00:16 Date of Discharge 11/06/20 Discharge Summary PROCEDURES PERFORMED DURING STAY: [None]. ADMITTING DIAGNOSES: Abdominal pain Polycystic kidney diseases/end-stage renal diseases History of brain aneurysm Hypertension Anemia of chronic diseases DISCHARGE DIAGNOSES: Abdominal pain Polycystic kidney diseases/end-stage renal diseases History of brain aneurysm Hypertension Anemia of chronic diseases COMPLICATIONS/CHIEF COMPLAINT: Colitis. HISTORY OF PRESENT ILLNESS:45 F hx ESRD on PD due to early cystic kidneys presents with abdominal discomfort and diarrhea for the past 3 days. She tells me that starting on Sunday she's been having diarrhea as well as intermittent abdominal discomfort with cramping especially along the lower abdomen specifically not near her peritoneal dialysis catheter. She's also had a poor appetite and decreased food and fluid intake for the past 3 days. Tells me that she was eating in the garden with her family on Sunday and thinks she might of eaten something bad as her symptoms started that evening and she had different food from the rest of her family none of whom share similar symptoms. Tells me the abdominal discomfort does not radiate and she's not had similar episodes in the past. She denies a fever or chills denies associated symptoms such as chest pain shortness of breath or dysuria. In the emergency department CT findings were suggestive of infectious colitis. Repeat CT with contrast was done to rule out perforation. Patient will be admitted to medical service for further management. HOSPITAL COURSE: During the hospital stay following issue addressed Abdominal pain Patient afebrile, does not have severe abdominal pain, she has mild leukocytosis CT abdomen pelvis showed moderate thickening of the bowel wall of the transverse colon, hepatic flexure and right colon probably secondary to colitis peritoneal dialysate does not suggest peritonitis Patient received treatment with ciprofloxacin IV and metronidazole IV. Today stool cx positive for C diff , vancomycin PO started Nephrology team follows her End-stage renal diseases Follow up with rural carrier in the outpatient settings History of brain aneurysm History of intracranial bleed in 2016 Hypertension Continue home meds DISCHARGE MEDICATIONS: Please see below. ALLERGIES: Please see below. PHYSICAL EXAMINATION ON DISCHARGE: VITAL SIGNS: Please see below. GENERAL APPEARANCE: NAD HEENT: no scleral icterus, no JVD, EOMI CARDIOVASCULAR: S1S2 LUNGS: CTA ABDOMEN: soft & mildly tender w palpitation in the low abdominal quadrants, peritoneal dialysis catheter in place MUSCULOSKELETAL: no cyanosis, no swelling INTEGUMENT: no generalized pallor NEUROLOGICAL: cranial nerve function from 2-12 intact intact, follows commands, speech not dysarthric LABORATORY DATA: Please see below. IMAGING: See above PROGNOSIS: Fair ACTIVITY: [As tolerated]. DIET: Cardiac DISPOSITION: Home ITEMS TO FOLLOWUP ON ON OUTPATIENT: Follow-up with rural carrier and PCP DISCHARGE CONDITION: [Stable]. TIME SPENT ON DISCHARGE:40minutes. Vital Signs/I&Os Vital Signs Date Time Temp Pulse Resp B/P (MAP) Pulse Ox O2 Delivery O2 Flow Rate FiO2 11/05/20 10:01 77 103/64 11/05/20 06:00 98.8 18 96 Room Air I&O- Last 24 Hours up to 6 AM 11/05/20 06:00 Intake Total 6550 ml Output Total 4800 ml Balance 1750 ml Laboratory Data Labs 24H Laboratory Tests 2 11/04/20 14:13: Body Fluid Source PERITONEAL DIALYSATE, Body Fluid WBC (Auto) 38H, Body Fluid RBC (Auto) < 2, Body Fluid Mononuclear Cells % Auto 84.2H, Fluid Polymorphonuclear Cell % Auto 15.8H, Peritoneal Fluid Color COLORLESS, Peritoneal Fluid Appearance HAZY 11/05/20 06:49: Immature Granulocyte % (Auto) 0.4, Neutrophils (%) (Auto) 56.1, Lymphocytes (%) (Auto) 29.2, Monocytes (%) (Auto) 10.0H, Eosinophils (%) (Auto) 4.0H, Basophils (%) (Auto) 0.3, Neutrophils # (Auto) 4.0, Lymphocytes # (Auto) 2.1, Monocytes # (Auto) 0.7, Eosinophils # (Auto) 0.3, Basophils # (Auto) 0.0, Nucleated Red Blo od Cells % (auto) 0.0, Anion Gap 10, Glomerular Filtration Rate 2.8L, Calcium Level 8.0L, Magnesium Level 2.6H, Total Bilirubin 0.4, Aspartate Amino Transf (AST/SGOT) 6L, Alanine Aminotransferase (ALT/SGPT) 14, Alkaline Phosphatase 33L, Total Protein 5.4L, Albumin 2.7L, Albumin/Globulin Ratio 1.0L 11/05/20 10:39: Nucleated Red Blood Cells % (auto) 0.0, Iron Level 79, Total Iron Binding Capacity 210L, Transferrin % Saturation 37.6 11/05/20 11:08: Lab Scanned Report Miscellaneous Lab CBC/BMP Laboratory Tests 11/05/20 06:49 11/05/20 10:39 Microbiology Microbiology 11/04/20 Blood Culture - Preliminary, Resulted No growth after 24 hours . All specim... 11/04/20 Blood Culture - Preliminary, Resulted No growth after 24 hours . All specim... Discharge Medications Scheduled Amlodipine Besylate (Amlodipine Besylate) 2.5 Mg Tablet, 2.5 MG PO DAILY, (Reported) Atorvastatin Calcium (Atorvastatin Calcium) 10 Mg Tablet, 10 MG PO DAILY, (Reported) Calcitriol (Calcitriol) 0.25 Mcg Capsule, 0.25 MCG PO Q2D, (Reported) Carvedilol (Carvedilol) 12.5 Mg Tablet, 12.5 MG PO BID, (Reported) Ergocalciferol (Vitamin D2) (Vitamin D2) 50,000 Units Cap, 50,000 UNITS PO Q2WK, (Reported) EVERY OTHER SUNDAY Ferric Citrate (Auryxia) 210 Mg Tablet, 630 MG PO WM, (Reported) Folic Acid/Vit B Complex and C (Maren-Karime Tablet) 1 Tab Tab, 1 TAB PO DAILY, (Reported) Gabapentin (Neurontin) 300 Mg Capsule, 300 MG PO QHS, (Reported) Hydralazine HCl (Hydralazine HCl) 25 Mg Tablet, 25 MG PO BID, (Reported) Losartan Potassium (Losartan Potassium) 100 Mg Tablet, 100 MG PO DAILY, (Reported) Mupirocin (Mupirocin) 2 % Oint...g., 1 DOSE EXT DAILY, (Reported) APPLY TO DIALYSIS SITE Ondansetron HCl (Zofran) 4 Mg Tablet, 4 MG PO Q6H Sucroferric Oxyhydroxide (Velphoro) 500 Mg Tab.chew, 1,000 MG PO WM, (Reported) Vancomycin Hcl (Vancomycin HCl) 125 Mg Capsule, 125 MG PO QID Allergies Coded Allergies: No Known Drug Allergies (Verified Allergy, Unknown, 11/19/19) FERMÍN JOHNSON DO November 05, 2020 11:55
[2020-11-05 12:38] LABS: HEMATOCRIT 26.1 % (36.0-47.0); HEMOGLOBIN 8.2 g/dl (12.0-15.5)
--- NOTE | 2020-11-05 13:12 | CR ---
CONSULTATION DATE: 11/04/2020 REQUESTING PHYSICIAN: FERMÍN JOHNSON DO CONSULTING PHYSICIAN: XU ADAMSON DO REASON FOR CONSULTATION: Management of endstage renal disease on peritoneal dialysis. CHIEF COMPLAINT: Abdominal discomfort. HISTORY OF PRESENT ILLNESS: Ms. Varela is well-known to me. She is a 45-year-old female with a past medical history of endstage renal disease on peritoneal dialysis secondary to polycystic kidney disease and other comorbid conditions mentioned below. Patient presented to the Emergency Room with a complaint of abdominal discomfort and diarrhea that started on Sunday. She reports a poor appetite and nausea but denies vomiting. She does not have a prior history of peritonitis. She denies any issues with the peritoneal catheter exit site. She denies fevers or chills, or dysuria. In the Emergency Room, she was found to have mild leukocytosis with white count of 11,[address] scan of the abdomen and pelvis revealed moderate thickening of the bowel wall of the transverse colon, probably secondary to colitis. The patient was started on IV Flagyl and Ciprofloxacin. A Nephrology consultation was requested for help in the management of her peritoneal dialysis. PAST MEDICAL HISTORY: Endstage renal disease secondary to polycystic kidneys on peritoneal dialysis, history of anemia of chronic kidney disease, renovascular hypertension, chronic active smoker, dyslipidemia, history of left arm fistula ligation, secondary hyperparathyroidism of renal origin. PAST SURGICAL HISTORY: Peritoneal dialysis catheter, AV fistula, left brachiocephalic status post ligation in December 2019, , SOCIAL HISTORY: She is a daily smoker. Denies drugs or alcohol. FAMILY HISTORY: Polycystic kidney disease. HOME MEDICATIONS: Reviewed and include: Amlodipine, Atorvastatin, Calcitriol, Carvedilol, vitamin D, Auryxia, Gabapentin, Hydralazine, Losartan, Velphoro. REVIEW OF SYSTEMS: Constitutional: Denies fevers or chills. Eyes: Denies tearing or change in vision. ENT: Denies rhinorrhea or epistaxis. Cardiac: Denies chest pain or palpitations. Respiratory: Denies shortness of breath or cough. Gastrointestinal: Reports diarrhea and abdominal discomfort and poor appetite. Genitourinary: She still makes urine. She denies any dysuria. Endocrine: Reports secondary hyperparathyroidism of renal origin. Denies diabetes. Hematologic: Reports anemia of chronic renal failure. Denies anticoagulant use. Neurologic: Denies seizure or syncope. Skin: Denies any new rashes or ulcers. Denies any trouble with the peritoneal dialysis catheter exit site. Musculoskeletal: Denies arthralgias, myalgias or leg swelling. Psychiatric: Denies anxiety or depression. The remainder of review of systems is negative or as per HPI. PHYSICAL EXAMINATION: VITAL SIGNS: Temperature is 97.5, pulse is 106, respiratory rate 18, blood pressure is 139/96, saturating 100% on room air. GENERAL: Patient is seen lying in bed awake, alert and oriented, comfortable, in no apparent distress. HEENT: Extraocular muscles are intact. Tongue is moist. NECK: Supple. Jugular veins are not elevated. HEART: Heart sounds are regular S1 and S2. LUNGS: Clear to auscultation bilaterally. No crackle, rale or rhonchus. ABDOMEN: Massively enlarged and palpable kidneys. PD catheter exit site is clean, dry and intact. MUSCULOSKELETAL: There is no leg edema, clubbing or cyanosis. NEUROLOGIC: There is no focal deficit. She is oriented x3 at baseline mentation. SKIN: Warm and dry, normal turgor. PSYCHIATRIC: Appropriate mood and affect. LABORATORY DATA: White count 11.2, hemoglobin 9.3, platelets 204,000. Sodium is 141, potassium is 4.4, bicarbonate 18, BUN 72, glucose is 83, albumin is 2.7. Peritoneal dialysis cell count shows fluid WBC of only 38. Blood cultures showed no growth for [address] of the abdomen and pelvis as mentioned above shows massively enlarged kidneys and thickening of the wall of the colon consistent with colitis. INPATIENT MEDICATIONS: She is receiving IV Ciprofloxacin and IV Flagyl, Tylenol p.r.n., Mylanta p.r.n., amlodipine 2.5 mg p.o. daily, Lipitor 10 mg p.o. daily, Calcitriol 0.25 mcg every other day, Carvedilol 12.5 mg p.o. twice daily, Gabapentin 300 mg p.o. q.h.s., hydralazine 25 mg p.o. b.i.d., Losartan 100 mg p.o. daily, Zofran p.r.n., Protonix 40 mg IV daily. PROBLEMS: 1. Endstage renal disease on peritoneal dialysis. Orders are written for five exchanges daily, all of them one liter volume and 1.5% dianeal. Her volume status and electrolytes are acceptable and no change is being made to the current prescription. 2. Abdominal pain. Patient has mild leukocytosis. CT of the abdomen showed moderate thickening of the bowel wall of the transverse colon and right colon probably secondary to colitis. Her PD cell count was negative for peritonitis. She was treated by the primary team with Ciprofloxacin and Flagyl. 3. Renovascular hypertension, blood pressures are well-controlled and no change is being made to her home regimen. 4. Anemia of chronic renal failure. Hemoglobin is 9.3 which is slightly below goal and iron stores are sent and pending. She receives Erythropoietin in the outpatient peritoneal dialysis clinic. 5. Secondary hyperparathyroidism of renal origin. She continues on Calcitriol along with her phosphorus binders. Thank you for involving me in the care of Ms. Varela. I will be happy to follow her along with you.
--- NOTE | 2020-11-05 13:19 | IPN ---
PROGRESS NOTE DATE: 11/05/2020 SUBJECTIVE: Delmi is seen and examined this morning at the bedside. She reports she feels better. She states her abdominal pain is improving. Her leukocytosis has resolved, however, labs today also showed worsening anemia and a repeat CBC was sent. Patient denies any blood in the stool. Her peritoneal dialysis exchanges have been uneventful. PHYSICAL EXAMINATION: VITAL SIGNS: Temperature 98.9, pulse 95, respiratory rate 20, blood pressure 118/76, saturating 98% on room air. INTAKE/OUTPUT: Review of I and O's yesterday shows net positive 1.4 liters. Weight in the bed scale today is not recorded. GENERAL: Patient is seen awake, alert, oriented, lying in bed comfortable in no distress. HEENT: Extraocular muscles are intact. Tongue is moist. Neck is supple. Jugular veins are not elevated. HEART: Sounds are regular, S1, S2. LUNGS: Clear to auscultation bilaterally. No crackle or rale. ABDOMEN: Distended with her enlarged kidneys and there is also some peritoneal dialysis fluid in place. Her PD catheter exit site was not examined today, yesterday's exam was benign. EXTREMITIES: Are negative for cyanosis, clubbing or edema. NEUROLOGIC: She is oriented x3, at baseline mentation. LAB STUDIES: White count 8.1, hemoglobin 7.9, repeat hemoglobin 8.8, platelets 206,000. Sodium 137, potassium 4.2, BUN 65. Transferrin saturation 37%, iron 79. INPATIENT MEDICATIONS: Reviewed by myself. She continues on I.V. Ciprofloxacin and I.V. Flagyl. The remainder of her medications are unchanged as compared to yesterday. PROBLEMS: 1. End-stage renal disease on peritoneal dialysis: Continue current prescription, 1 liter exchange done 5 times a day, all 1.5% Dianeal. She has no issues with her peritoneal dialysis exchanges. Her exit site is intact. Her PD fluid was negative for infection. Her electrolytes and volume status are acceptable. 2. Renovascular hypertension: Blood pressures are well controlled, no changes are being made to the current regimen. 3. Colitis: Patient is treated by the primary team with I.V. Ciprofloxacin and I.V. Flagyl. Her white count has resolved. She is symptomatically feeling improved. She is likely to be discharged on oral antibiotics. 4. Anemia of chronic renal failure: Her hemoglobin is slightly down trended, but a repeat CBC was done this morning to assess stability. Her iron stores are likewise intact. She will have repeat blood work done in the peritoneal dialysis clinic this month. A stool occult blood is also pending along with a GI panel.
[2020-11-05 14:00] VITALS: BP 116/80
[2020-11-05] MEDS ORDERED: VANC125C3 PO (14:38)
--- NOTE | 2020-11-05 15:29 | IPNPDOC ---
Text Note Date of Service The patient was seen on 11/05/20. NOTE Subjective: Patient developed 4 liquid bowel movements in the morning. No fever or chills Objective: GENERAL APPEARANCE: NAD HEENT: no scleral icterus, no JVD, EOMI CARDIOVASCULAR: S1S2 LUNGS: CTA ABDOMEN: soft & mildly tender w palpitation in the low abdominal quadrants, peritoneal dialysis catheter in place MUSCULOSKELETAL: no cyanosis, no swelling INTEGUMENT: no generalized pallor NEUROLOGICAL: cranial nerve function from 2-12 intact intact, follows commands, speech not dysarthric Assessment and plan Patient is 45 years old male with past medical history of end-stage renal diseases on peritoneal dialysis presented with abdominal pain. Abdominal pain/pseudomembranous colitis Patient afebrile, does not have severe abdominal pain, she has mild leukocytosis CT abdomen pelvis showed moderate thickening of the bowel wall of the transverse colon, hepatic flexure and right colon probably secondary to colitis peritoneal dialysate negative for peritonitis Stool culture came back positive for C. difficile colitis. Vancomycin by mouth started. DC Cipro IV, Flagyl IV Polycystic kidney diseases/end-stage renal diseases Follow up with jig boring machine operator for metal in the outpatient settings History of brain aneurysm History of intracranial bleed in 2016 Hypertension Continue home meds VS,Fishbone, I+O VS, Fishbone, I+O Laboratory Tests 11/05/20 06:49 11/05/20 10:39 11/05/20 12:15 Vital Signs Date Time Temp Pulse Resp B/P (MAP) Pulse Ox O2 Delivery O2 Flow Rate FiO2 11/05/20 10:01 77 103/64 11/05/20 06:00 98.8 18 96 Room Air I&O- Last 24 Hours up to 6 AM 11/05/20 06:00 Intake Total 6550 ml Output Total 4800 ml Balance 1750 ml FERMÍN JOHNSON DO November 05, 2020 15:29
[2020-11-05] MEDS: VANCOMYCIN ORAL SOL 250MG/5ML ORAL SYRINGE PO SCH (18:27)
[2020-11-05] MEDS: GABAPENTIN 300 MG CAP PO SCH ×2 (21:00→21:03)
[2020-11-05 22:00] VITALS: BP 132/82
[2020-11-06] MEDS: VANCOMYCIN ORAL SOL 250MG/5ML ORAL SYRINGE PO SCH ×3 (00:19→11:11)
[2020-11-06] MEDS: ONDANSETRON 4MG/2ML VIAL IV SCH ×2 (04:00→11:11)
[2020-11-06 06:00] VITALS: BP 115/83
[2020-11-06 07:54] LABS: BASO % 0.4 % (0.0-1.0); EOS # 0.3 10^3/uL (0.0-0.5); EOS % 3.9 % (0.0-3.0); HEMATOCRIT 26.4 % (36.0-47.0); HEMOGLOBIN 8.4 g/dl (12.0-15.5); LYMPH # 1.8 10^3/uL (1.5-5.0); MEAN CORPUSCULAR HEMOGLOBIN 31.6 pg (27.0-33.0); MEAN CORPUSCULAR HGB CONC 31.8 g/dl (32.0-36.5); MEAN CORPUSCULAR VOLUME 99.2 fl (80.0-96.0); MONO # 0.7 10^3/uL (0.0-0.8); MONO % 9.3 % (2.0-8.0); NEUTROPHILS # 4.4 10^3/uL (1.5-8.5); NEUTROPHILS % 60.7 % (36.0-66.0); PLATELET COUNT, AUTOMATED 203 10^3/uL (150-450); RED BLOOD COUNT 2.66 10^6/uL (4.00-5.40); WHITE BLOOD COUNT 7.2 10^3/uL (4.0-10.0)
[2020-11-06 08:37] LABS: ALBUMIN 2.8 GM/DL (3.2-5.2); BILIRUBIN,TOTAL 0.3 MG/DL (0.2-1.0); CALCIUM LEVEL 8.2 MG/DL (8.5-10.1); CREATININE FOR GFR 14.6 MG/DL (0.55-1.30); GLOMERULAR FILTRATION RATE 2.9 (>58); MAGNESIUM LEVEL 2.7 MG/DL (1.8-2.4); POTASSIUM SERUM 4.2 MEQ/L (3.5-5.1); TOTAL PROTEIN 5.6 GM/DL (6.4-8.2)
[2020-11-06] MEDS: PANTOPRAZOLE 40MG VIAL (C9113 PER 1) IV SCH (09:51)
[2020-11-06 09:54] VITALS: BP 139/91
[2020-11-06] MEDS: LOSARTAN 50MG TABLET PO SCH (09:54)
[2020-11-06] MEDS: ATORVASTATIN 10 MG TAB PO SCH (09:55)
[2020-11-06] MEDS: **hydrALAZINE HCL** 25 MG TAB PO SCH (09:55)
[2020-11-06] MEDS: CARVedilol 12.5 MG TAB PO SCH (09:56)
[2020-11-09] MEDS ORDERED: VITAMIN D 50,000 UNITS CAPSULE (ERGOCALCIFEROL 1.25MG) PO SCH (09:00)
== END 2020-11-06 11:33 | disposition home or self-care (01) | DRG 391 ==
LOC: M ED 17:25 → M ED INP 11-04 00:16 → ENRESERV 11-04 03:55 → M MSPAV 11-04 10:48
PROVIDERS: ADMIT Family Medicine; ATTEND Internal Medicine
DX: A09 Infectious gastroenteritis and colitis, unspecified (principal); N18.6 End stage renal disease; Q61.3 Polycystic kidney, unspecified; N25.81 Secondary hyperparathyroidism of renal origin; I12.0 Hypertensive chronic kidney disease with stage 5 chronic kidney disease or end stage renal disease; D63.1 Anemia in chronic kidney disease; Z79.899 Other long term (current) drug therapy

== ENCOUNTER → 2021-02-08 | Outpatient (CLI) | payer MEDICARE, MEDICAID ==
[~2021-02-08] MED LIST changes: +AMLO2.5T3; +AMLO2.5T3 PO; +ATOR1TAB19; +ATOR1TAB19 PO; +CARV12.5 PO; +CIPR-249 PO; +ERGO500029 PO; +GABA-282; +HYDR-3910; +HYDR-3910 PO; +LOSA100T50 PO; +MUPI2OI EXT; +NEUR300C PO; +VANC125C3 PO; +VELP5CHW PO; -VITA50005 PO; +ZOFR4TAB16 PO
--- NOTE | 2021-02-08 16:10 | REP ---
INDICATION: RIGHT THUMB INJURY. COMPARISON: None. TECHNIQUE: Three views. FINDINGS: Nondisplaced fracture distal phalanx. Soft tissue swelling. IMPRESSION: Nondisplaced fracture distal phalanx. <Electronically signed by Michi Garcia > 02/08/21 [id number]
== END ==
LOC: M WUC 15:29
PROVIDERS: ATTEND Physician Assistant Medical
DX: S62.521A Displaced fracture of distal phalanx of right thumb, initial encounter for closed fracture (principal); X58.XXXA Exposure to other specified factors, initial encounter; Y92.89 Other specified places as the place of occurrence of the external cause; Y93.89 Activity, other specified; Y99.8 Other external cause status

== ENCOUNTER → 2021-02-10 | Outpatient (CLI) | payer MEDICARE, MEDICAID | LOC: M LABSMTC 11:08 | PROVIDERS: ATTEND Anesthesiology | DX: Z01.812 Encounter for preprocedural laboratory examination (principal); Z20.822 Contact with and (suspected) exposure to COVID-19 ==

== ENCOUNTER 2021-02-15 06:12 | Day surgery (SDC) | payer MEDICARE, MEDICAID ==
[~2021-02-15] VITALS: Ht 157.5 cm; Wt 50.3 kg
[~2021-02-15 06:12] MED LIST changes: +NS 1,000 ML IV ONE; +ceFAZolin SOD 2 GM in IV 1 EA IV ONE
[2021-02-15] MEDS ORDERED: LIDOCAINE 2% 100MG/5ML SDV (FOR ANES.) As Ordered ONE (07:06)
[2021-02-15] MEDS ORDERED: ROCURONIUM BROMIDE 50 MG/5 ML VIAL As Ordered ONE (07:06)
[2021-02-15] MEDS ORDERED: fentaNYL 100 MCG/2 ML INJECTION (J3010) As Ordered ONE (07:06)
[2021-02-15] MEDS ORDERED: MIDAZOLAM INJ 2MG/2ML VIAL (J2250 PER 1MG) As Ordered ONE (07:06)
[2021-02-15] MEDS ORDERED: propofoL 200 MG/20 ML VIAL As Ordered ONE (07:06)
[2021-02-15] MEDS ORDERED: BUPIVACAINE HCL 0.25% 10ML VIAL As Ordered ONE (07:29)
[2021-02-15] MEDS ORDERED: BUPIVACAINE LIPOSOME/PF 1.3% 20ML VIAL (13.3MG/ML)(EXPAREL)(C9290 PER1MG) As Ordered ONE (07:30)
[2021-02-15] MEDS ORDERED: HEPARIN SOD (PORCINE) 5000UNITS/ML 1ML VIAL/SYRINGE As Ordered ONE (07:31)
[2021-02-15] MEDS ORDERED: LIDOCAINE 1% SDV 30ML VIAL As Ordered ONE (07:33)
[2021-02-15] MEDS ORDERED: ONDANSETRON 4MG/2ML VIAL As Ordered ONE ×3 (08:19→11:04)
[2021-02-15] MEDS ORDERED: dexameTHASONE 4 MG/ML 1ML VIAL (J1100 PER 1MG) As Ordered ONE (08:19)
[2021-02-15] MEDS ORDERED: PHENYLephrine 500MCG 5ML (100MCG/ML) SYRINGE As Ordered ONE (08:38)
[2021-02-15] MEDS ORDERED: ePHEDrine SULFATE 25 MG/5 ML(5MG/ML) SYRINGE As Ordered ONE (08:38)
[2021-02-15] MEDS ORDERED: HYDROmorphone HCL 2 MG/ML 1ML VIAL (J1170) As Ordered ONE (09:19)
[2021-02-15] MEDS ORDERED: NEOSTIGMINE 10MG/10ML VIAL (J2710 PER 0.5MG) As Ordered ONE (10:33)
[2021-02-15] MEDS ORDERED: GLYCOPYRROLATE INJ 0.2 MG/ML 2 ML VIAL As Ordered ONE (10:33)
--- NOTE | 2021-02-15 11:06 | REP ---
INDICATION: INSERTION RIGHT JUGULAR CATHETER. COMPARISON: None. TECHNIQUE: Single C-arm view chest. FINDINGS: A double-lumen central venous catheter is seen with the tip the junction of the superior vena cava and right atrium. IMPRESSION: 4 seconds of fluoroscopy time was utilized. <Electronically signed by Max Chan > 02/15/21 [id number]
[2021-02-15] MEDS ORDERED: oxyCODONE 5MG TAB PO PRN (11:10)
[2021-02-15] MEDS ORDERED: fentaNYL 100 MCG/2 ML INJECTION (J3010) IV PRN (11:10)
[2021-02-15] MEDS ORDERED: ONDANSETRON 4MG/2ML VIAL IV PRN (11:10)
[2021-02-15] MEDS ORDERED: METOCLOPRAMIDE INJ 10MG/2ML VIAL (J2765 PER 1) As Ordered ONE (11:24)
[2021-02-15] MEDS ORDERED: ACETAMINOPHEN TAB 650MG DOSE (2X325MG) PO PRN (11:25)
[2021-02-15] MEDS ORDERED: NORCO, ANEXSIA 5/325MG TABLET (HYDROcodone/ACETAMINOPHEN) PO PRN (11:25)
--- NOTE | 2021-02-15 11:28 | REP ---
INDICATION: check dialysis catheter position. COMPARISON: None. TECHNIQUE: Single portable AP view of the chest was performed. FINDINGS: Right central venous catheter is seen with the tip in the superior vena cava. There is no pneumothorax. The heart is not enlarged. No consolidating infiltrate is seen bilaterally. In the left retrocardiac region there appears to be mild crowding of lung markings and atelectatic change. IMPRESSION: Right central venous catheter with tip in the superior vena cava. No pneumothorax. <Electronically signed by Max Chan > 02/15/21 1121
[2021-02-15] MEDS ORDERED: METOCLOPRAMIDE INJ 10MG/2ML VIAL (J2765 PER 1) IV ONE (11:30)
[2021-02-15 14:15] LABS: CALCIUM LEVEL 7.9 MG/DL (8.5-10.1); CREATININE FOR GFR 13.4 MG/DL (0.55-1.30); GLOMERULAR FILTRATION RATE 3.2 (>58); POTASSIUM SERUM 4.9 MEQ/L (3.5-5.1)
[2021-02-15] MEDS ORDERED: diphenhydrAMINE 50MG/ML VIAL (J1200) IV ONE (15:35)
[2021-02-15] MEDS ORDERED: PROMETHAZINE INJ 25 MG/ML VIAL (J2550) IV SCH (15:40)
[2021-02-15] MEDS ORDERED: PROMETHAZINE INJ 25 MG/ML VIAL (J2550) IV ONE (16:00)
[2021-02-15 17:27] VITALS: BP 154/89
[2021-02-15] MEDS ORDERED: HYDR-3715 PO (18:06)
--- NOTE | 2021-02-16 17:22 | RO ---
OPERATIVE NOTE DATE OF OPERATION: 02/15/2021 PREOPERATIVE DIAGNOSES: 1. Infected, continuous ambulatory peritoneal dialysis catheter. 2. Umbilical hernia. 3. Need for hemodialysis access. POSTOPERATIVE DIAGNOSES: 1. Infected continuous ambulatory peritoneal dialysis catheter site. 2. Incisional (johann-catheter) hernia. 3. Need for hemodialysis access. PROCEDURES PERFORMED: 1. Explantation of infected continuous ambulatory peritoneal dialysis catheter with debridement of chronically infected catheter tunnel and repair of incisional hernia. 2. Insertion of right internal jugular, dual-lumen hemodialysis catheter with ultrasound and fluoroscopy guidance. 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 She has been performing peritoneal dialysis for at least a year or two. She developed a chronic infection in the catheter tunnel as well as a small hernia at the umbilicus. She is now for removal of her infected catheter with repair of her hernia and placement of a tunneled long-term hemodialysis catheter. OPERATIVE PROCEDURE: The patient was brought to the operating room and placed on the table in a supine position. She was placed under general endotracheal anesthesia. The abdominal portions of the procedure were addressed first. The abdomen was prepped and draped in a sterile fashion. Examination of the abdomen revealed that the external pledget of the catheter was completely outside the skin. There was a chronic, somewhat epithelialized tract leading down along the catheter inferiorly to the deeper pledget which was located just below the umbilicus. A transverse curved infraumbilical incision was made to address both the hernia which was felt to be umbilical and the inner pledget of the tunneled catheter. The incision was deepened into the subcutaneous tissues. The hernia sac was opened. This actually tracked down along the dialysis catheter and represented a small incisional hernia around the catheter insertion site and not an umbilical hernia. The hernia sac was excised for a specimen. The inner pledget of the catheter was identified and freed from surrounding scar tissue by a combination of sharp and cautery dissection and the catheter was withdrawn. This was cut just below the external pledget and the catheter was withdrawn and discarded. There was some abundant granulation tissue within the area about the deep pledget and in the deeper portion of the catheter tunnel. A second small incision was made along the catheter tract and a curette was used to debride the granulation tissue from within this tunnel. Several fragments of scar tissue were excised. Ultimately I elected to excise the scar tissue tract of the tunnel as well, as well as the epithelialized exit site of the catheter. Hemostasis was assured with the cautery. The incision where the catheter had entered the abdomen was extended slightly to incorporate the area of the johann-catheter hernia and the catheter entrance site. This left an approximately 2 to 2-1/2 cm slightly curved longitudinal incision in the fascia. After ensuring that there was excellent fascial tissue, the wound was then closed with a running suture of 2-0 PDS. This appeared to give a nice closure of the fascia. The subcutaneous tissues of the umbilical incision were approximated with several buried 3-0 Vicryl sutures. The incision along the catheter tract was approximated loosely with two nylon sutures. Several nylon sutures were also placed in the infraumbilical incision. The exit site opening was left open and a moistened 2x2 was gently placed into this wound down along the catheter tract as a wick. So 1/4% Marcaine was infiltrated about all of the incisions and Adaptic was placed over the wounds followed by a bulky gauze dressing. The patient tolerated the procedure well without apparent complication. At this point, the drapes were removed and the patient's right upper chest and shoulder and neck were prepped and draped in a sterile fashion. Prior to prepping, the area was inspected with the ultrasound. The patient had an excellent internal jugular vein. After prepping and draping, the ultrasound probe was also draped and used to identify the location of the internal jugular vein. This site was marked. An 18-gauge needle as inserted with excellent return of venous blood. Fluoroscopy showed that the guidewire actually passed inferiorly through the heart and into the inferior vena cava. An approximately 1 cm to 1-1/2 cm incision was made transversely at the wire insertion site. Measurements were taken of the patient's chest to estimate the location of the exit site for the tunneled catheter. The 19 cm catheter was selected. A site was elected approximately 21 cm from the decided location of the tip of the cathter in the superior vena cava. A short transverse incision was made and catheter was then tunneled up to the neck incision using the supplied tunneler. The serial dilators were then passed over the guidewire to dilate the tract into the internal jugular vein. This was accomplished with the patient in Trendelenburg position. The largest dilator with the overlying introducer sheath was then passed. The catheter was then inserted through the sheath and the sheath was peeled away, leaving the catheter in position. The catheter had been flushed with 20 units per mL heparin solution prior to insertion. A hemostat was used to loosen the tissues around the curve of the catheter within the neck incision to allow this to lie in a gentle curve. The pledget was positioned just beneath the skin at the catheter exit site down on the upper chest on the right. The catheter allowed aspiration of blood from both sides and both sides were then flushed with additional heparinized saline. Fluoroscopy showed good positioning of the tip of the catheter approximately at the level of the junction of the superior vena cava and the right atrium. Two nylon sutures were placed at the suture wing to attach the catheter to the skin of the chest wall. The neck incision was closed with buried sutures of 4-0 Vicryl and Steri-Strips. A small OpSite dressing was placed over the neck incision. A chlorhexidine gluconate OpSite was placed at the catheter exit site. The catheter was filled through each channel with 1.7 mL of 1000 unit per mL heparin solution and then the caps and clamps were applied. A gauze was wrapped around the injection ports and held in place with tape. The dialysis catheter utilized was a [employer] GlidePath, reference code [id number] and the lot #[id number]. The patient was then awakened in the operating room, extubated and moved to the recovery room in stable condition.
== END 2021-02-15 17:45 | disposition home or self-care (01) ==
LOC: M SDC 06:12
PROVIDERS: ATTEND Surgery
DX: N18.6 End stage renal disease (principal); T85 Complications of other internal prosthetic devices, implants and grafts; K42.9 Umbilical hernia without obstruction or gangrene; I12.0 Hypertensive chronic kidney disease with stage 5 chronic kidney disease or end stage renal disease; F41.9 Anxiety disorder, unspecified; F32.9 Major depressive disorder, single episode, unspecified; F17.218 Nicotine dependence, cigarettes, with other nicotine-induced disorders; Z79.899 Other long term (current) drug therapy
CPT/HCPCS: 36415; 36558; 49422; 49585; 71045; 76000; 80048; 84132; 88302; C1750; J0690; J1100; J1170; J1642; J1644; J2250; J2370; J2405; J2710; J2765; J3010

== ENCOUNTER → 2021-04-07 | Outpatient (CLI) | payer MEDICARE, MEDICAID ==
[~2021-04-07] MED LIST changes: +HYDR-3715 PO; +ISOS1TAB35 PO; -KLOR10TA76 PO; -NS 1,000 ML IV ONE; +POTA-136 PO; -ceFAZolin SOD 2 GM in IV 1 EA IV ONE
== END ==
LOC: M LABSMTC 11:21
PROVIDERS: ATTEND Anesthesiology
DX: Z01.812 Encounter for preprocedural laboratory examination (principal); Z20.822 Contact with and (suspected) exposure to COVID-19

== ENCOUNTER 2021-04-12 09:26 | Day surgery (SDC) | payer MEDICARE, MEDICAID ==
[~2021-04-12] VITALS: Ht 157.5 cm; Wt 49.4 kg
[~2021-04-12 09:26] MED LIST changes: +LR 1,000 ML IV ONE; +ceFAZolin SOD 2 GM in IV 1 EA IV ONE
[2021-04-12] MEDS ORDERED: D5W/0.2% SODIUM CHLORIDE 1,000 ML IV ONE (09:55)
[2021-04-12] MEDS ORDERED: HEPARIN SOD (PORCINE) 5000UNITS/ML 1ML VIAL/SYRINGE As Ordered ONE (11:02)
[2021-04-12] MEDS ORDERED: LIDOCAINE 1% SDV 30ML VIAL As Ordered ONE (11:02)
[2021-04-12] MEDS ORDERED: fentaNYL 100 MCG/2 ML INJECTION (J3010) As Ordered ONE (11:27)
[2021-04-12] MEDS ORDERED: propofoL 200 MG/20 ML VIAL As Ordered ONE (11:27)
[2021-04-12] MEDS ORDERED: MIDAZOLAM INJ 2MG/2ML VIAL (J2250 PER 1MG) As Ordered ONE (11:27)
[2021-04-12] MEDS ORDERED: LIDOCAINE 2% 100MG/5ML SDV (FOR ANES.) As Ordered ONE (11:27)
[2021-04-12] MEDS ORDERED: HYDR-3715 PO (13:06)
[2021-04-12 13:29] VITALS: BP 160/105
--- NOTE | 2021-04-12 16:41 | RO ---
OPERATIVE NOTE DATE OF OPERATION: 04/12/2021 PREOPERATIVE DIAGNOSIS: End-stage renal disease. POSTOPERATIVE DIAGNOSIS: End-stage renal disease. PROCEDURE PERFORMED: Implantation of continuous ambulatory peritoneal dialysis catheter. SURGEON: Joon Gold MD [employer] GATHERER: None. ANESTHESIA: Local with 1% Xylocaine with monitored anesthesia care. INDICATIONS FOR THE PROCEDURE: The patient is a 46-year-old woman with end-stage renal disease related to hypertension. She has been on dialysis for some time and had been doing peritoneal dialysis until her catheter became infected and was removed. She has been doing hemodialysis via a catheter for the last six weeks or so while her wounds from her catheter removal have healed and she is now for placement of a new continuous ambulatory peritoneal dialysis catheter. OPERATIVE PROCEDURE: The patient was brought to the operating room and placed on the table in a supine position. She received sedation from anesthesia. The patient's abdomen was prepped and draped in a sterile fashion. A site was marked for placement of the new catheter in her left upper quadrant. 1% Xylocaine was infiltrated in this area. An approximately 3 to 3-1/2 cm skin incision was made and deepened into the subcutaneous tissues. Hemostasis was assured with the cautery. The incision was deepened to the anterior rectus sheath. This was opened and the muscle fibers were spread. A small opening was made through the posterior rectus sheath and peritoneum. A purse-string suture of 2-0 Vicryl was placed around this opening. The patient was placed into a slight Trendelenburg position. The Benjie 62 cm double-pledgeted pigtail peritoneal dialysis catheter was placed over a long stylet. The inferior edge of the peritoneal opening was elevated and with the patient in a slight Trendelenburg position, the catheter was advanced into the abdomen along the posterior aspect of the anterior abdominal wall and then slipped off the stylet. The inner pledget was placed just outside the peritoneum and the purse-string suture was tied down and then tied about the pledget. The anterior rectus sheath was closed with a running suture of Vicryl. The catheter was tunneled through the subcutaneous tissues to exit through a small stab wound laterally. The infusion hub of the catheter was then attached. On liter of sterile saline was then infused through the catheter with the patient positioned in a slight reverse Trendelenburg position. While the fluid was infusing, the insertion site was closed with buried sutures of 3-0 Chromic and 3-0 Vicryl. After the fluid had infused, the bag was dropped to the floor and by gravity siphon, all of the fluid returned and perhaps slightly more than the full liter was returned, suggesting a small amount of residual fluid in her abdomen. There was no evidence of any blood. The catheter was then filled with 1 mL of 5000 units per mL heparin and 1.4 mL of sterile saline. The catheter was capped and then a small clamp was applied as well. Steri-Strips were applied to the incision. The catheter exit site was dressed with a chlorhexidine gluconate OpSite and the catheter was coiled beneath several 4x4 sponges. The patient tolerated the procedure well without apparent complication. She was awakened in the operating room and then transported to advanced recovery in stable condition.
== END 2021-04-12 14:20 | disposition home or self-care (01) ==
LOC: M SDC 09:26
PROVIDERS: ATTEND Surgery
DX: N18.6 End stage renal disease (principal); I12.0 Hypertensive chronic kidney disease with stage 5 chronic kidney disease or end stage renal disease; F17.218 Nicotine dependence, cigarettes, with other nicotine-induced disorders; G43.909 Migraine, unspecified, not intractable, without status migrainosus; Z86.73 Personal history of transient ischemic attack (TIA), and cerebral infarction without residual deficits; Z79.899 Other long term (current) drug therapy
CPT/HCPCS: 36415; 49421; 84132; C1750; J0690; J1644; J2250; J3010

== ENCOUNTER → 2021-08-24 | Outpatient (CLI) | payer MEDICARE, MEDICAID ==
[~2021-08-24] MED LIST changes: +LOSA100T45 PO; -LOSA100T50 PO; +LOSA25TA13 PO; -LOSA25TA14 PO; -LR 1,000 ML IV ONE; +POTA-149 PO; +POTA-151 PO; -POTA10TA16 PO; -POTA20TA6 PO; -ceFAZolin SOD 2 GM in IV 1 EA IV ONE
== END ==
LOC: M WUC 13:53
PROVIDERS: ATTEND Physician Assistant
DX: S82.831A Other fracture of upper and lower end of right fibula, initial encounter for closed fracture (principal); M79.671 Pain in right foot; X58.XXXA Exposure to other specified factors, initial encounter; Y92.9 Unspecified place or not applicable; S92.354A Nondisplaced fracture of fifth metatarsal bone, right foot, initial encounter for closed fracture

== ENCOUNTER 2022-03-06 12:38 | Emergency (ER) | payer MEDICARE, MEDICAID ==
[~2022-03-06] VITALS: Ht 157.5 cm; Wt 52.6 kg
[2022-03-06 15:05] LABS: BASO % 0.2 % (0.0-1.0); EOS # 0.2 10^3/uL (0.0-0.5); EOS % 1.5 % (0.0-3.0); HEMATOCRIT 23.4 % (36.0-47.0); HEMOGLOBIN 7.6 g/dl (12.0-15.5); LYMPH # 0.6 10^3/uL (1.5-5.0); LYMPH % 4.4 % (24.0-44.0); MEAN CORPUSCULAR HEMOGLOBIN 30.9 pg (27.0-33.0); MEAN CORPUSCULAR HGB CONC 32.5 g/dl (32.0-36.5); MEAN CORPUSCULAR VOLUME 95.1 fl (80.0-96.0); MONO # 1.2 10^3/uL (0.0-0.8); NEUTROPHILS % 84.4 % (36.0-66.0); PLATELET COUNT, AUTOMATED 188 10^3/uL (150-450); RED BLOOD COUNT 2.46 10^6/uL (4.00-5.40); WHITE BLOOD COUNT 13.1 10^3/uL (4.0-10.0)
[2022-03-06 15:44] LABS: ALBUMIN 1.8 GM/DL (3.2-5.2); BILIRUBIN,DIRECT 0.1 MG/DL (0.0-0.2); BILIRUBIN,TOTAL 0.2 MG/DL (0.2-1.0); GLOMERULAR FILTRATION RATE 2.8 (>58); POTASSIUM SERUM 4.9 MEQ/L (3.5-5.1); TOTAL PROTEIN 4.9 GM/DL (6.4-8.2)
[2022-03-06] MEDS ORDERED: ONDANSETRON 4MG 2ML VIAL IV ONE (16:05)
[2022-03-06] MEDS ORDERED: NS 1,000 ML IV ONE (16:05)
[2022-03-06] MEDS ORDERED: MORPHINE 4 MG/ML 1ML VIAL/SYRINGE IV ONE ×2 (16:05→18:55)
[2022-03-06] MEDS ORDERED: ISOVUE-370 76% 100ML VIAL As Ordered ONE (16:06)
[2022-03-06 18:23] LABS: PERITONEAL FL COLOR PALE YELLOW (COLORLESS); SOURCE, BODY FLUID PERITONEAL
[2022-03-06 18:24] LABS: APPEARANCE, BODY FLUID HAZY (CLEAR); SPEC. GRAVITY BODY FLUIDS 1.014 (NOT ESTABLISHED)
[2022-03-06 19:00] LABS: SOURCE, BODY FLUID ALBUMIN ASCITES; SOURCE, BODY FLUID GLUCOSE ASCITES; SOURCE, BODY FLUID TOT PROTEIN ASCITES; TOTAL PROTEIN, BODY FLUID 0.5 G/DL (NOT ESTABLISHED)
[2022-03-06] MEDS ORDERED: VANCOMYCIN HCL 1,000 MG, VIAL MATE ADAPTER 1 EACH in NS 250 ML IV ONE (19:45)
[2022-03-06] MEDS ORDERED: GENTAMICIN 60 MG in D5W 50 ML IV ONE (21:00)
[2022-03-06] MEDS ORDERED: OXYCODONE/APAP 5MG/325MG(HOME DOSE PACK) PO ONE (22:35)
[2022-03-06 22:49] VITALS: BP 132/93
== END 2022-03-06 22:53 | disposition home or self-care (01) ==
LOC: M ED 12:38
DX: T85.71XA Infection and inflammatory reaction due to peritoneal dialysis catheter, initial encounter (principal); I10 Essential (primary) hypertension; G43.909 Migraine, unspecified, not intractable, without status migrainosus; F41.9 Anxiety disorder, unspecified; Q61.3 Polycystic kidney, unspecified; F17.200 Nicotine dependence, unspecified, uncomplicated; Z79.899 Other long term (current) drug therapy; Z79.83 Long term (current) use of bisphosphonates; Z79.811 Long term (current) use of aromatase inhibitors
CPT/HCPCS: 74177; 80048; 80076; 82042; 82945; 83605; 83690; 84157; 84315; 85025; 87040; 87070; 87075; 87102; 87116; 87205; 87206; 89051; 96365; 96366; 96375; 99284; J1580; J2270; J2405; J3370; Q9967

== ENCOUNTER 2023-10-14 07:44 | Inpatient (IN) | payer MEDICAID, MEDICARE ==
[~2023-10-14] VITALS: Ht 160 cm; Wt 60.0 kg
[~2023-10-14 07:44] MED LIST changes: -HYDR-3910; -HYDR-3910 PO; +HYDR25TA87; +HYDR25TA87 PO; -LOSA100T45 PO; +LOSA100T46 PO
[2023-10-14 08:26] LABS: BASO % 0.1 % (0.0-1.0); EOS # 0.1 10^3/uL (0.0-0.5); EOS % 0.5 % (0.0-3.0); HEMATOCRIT 25.6 % (36.0-47.0); LYMPH # 0.6 10^3/uL (1.5-5.0); LYMPH % 4.6 % (24.0-44.0); MEAN CORPUSCULAR HGB CONC 31.3 g/dl (32.0-36.5); MEAN CORPUSCULAR VOLUME 99.2 fl (80.0-96.0); MONO # 0.6 10^3/uL (0.0-0.8); MONO % 4.5 % (2.0-8.0); NEUTROPHILS # 11.8 10^3/uL (1.5-8.5); NEUTROPHILS % 88.6 % (36.0-66.0); PLATELET COUNT, AUTOMATED 135 10^3/uL (150-450); RED BLOOD COUNT 2.58 10^6/uL (4.00-5.40); WHITE BLOOD COUNT 13.4 10^3/uL (4.0-10.0)
[2023-10-14 08:46] LABS: LIPASE 24 U/L (12-53)
[2023-10-14 08:53] LABS: ALKALINE PHOSPHATASE 62 U/L (46-116); ALT/SGPT 69 U/L (7.0-40); AST/SGOT 55 U/L (<34); BILIRUBIN,DIRECT < 0.1 MG/DL (<0.4); BILIRUBIN,TOTAL 0.2 MG/DL (0.3-1.2); BLOOD UREA NITROGEN 98 MG/DL (9-23); CALCIUM LEVEL 7.7 MG/DL (8.5-10.1); CARBON DIOXIDE LEVEL 27 MMOL/L (20-31); CHLORIDE LEVEL 103 MMOL/L (98-107); CREATININE FOR GFR 14.41 MG/DL (0.55-1.30); GLOMERULAR FILTRATION RATE 2.9 (>51); GLUCOSE, FASTING 69 MG/DL (60-100); POTASSIUM SERUM 5.8 MMOL/L (3.5-5.1); SODIUM LEVEL 142 MMOL/L (136-145); TOTAL PROTEIN 4.6 G/DL (5.7-8.2)
[2023-10-14 10:24] LABS: CK-MB VALUE MASS 1.7 NG/ML (<3.6)
[2023-10-14 10:30] LABS: CPK CREATINE PHOSPHOKINASE 378 U/L (34-145); MB/CK RELATIVE INDEX 0.44 (< OR =4)
[2023-10-14] MEDS: DEXTROSE 50% 50ML SYRINGE IV STA (10:30)
[2023-10-14] MEDS: HumuLIN R (REGULAR) INSULIN (NovoLIN R) **100U/ML** PER UNIT IV ONE (10:56)
[2023-10-14] MEDS: CALCIUM GLUCONATE 1,000 MG in D5W MINI-BAG PLUS 100 ML IV ONE (10:56)
[2023-10-14 11:25] LABS: CK-MB VALUE MASS 2.1 NG/ML (<3.6)
[2023-10-14 11:27] LABS: CPK CREATINE PHOSPHOKINASE 315 U/L (34-145); MB/CK RELATIVE INDEX 0.66 (< OR =4)
[2023-10-14] MEDS ORDERED: CARV25TA PO (14:33)
[2023-10-14] MEDS ORDERED: ATOR80TA59 PO (14:33)
[2023-10-14] MEDS ORDERED: LOSA100T5 PO (14:40)
[2023-10-14] MEDS ORDERED: HYDR50TA46 PO (14:40)
[2023-10-14] MEDS ORDERED: ASPI81TA26 PO (14:42)
[2023-10-14] MEDS ORDERED: TERA2CAP3 PO (14:42)
[2023-10-14] MEDS ORDERED: LANT1000 PO (14:42)
[2023-10-14] MEDS ORDERED: HOME MED LIST COMPLETE! XX SCH (14:45)
[2023-10-14] MEDS ORDERED: cefTRIAXone SOD 2 GM in D5W MINI-BAG PLUS 50 ML IV ONE (15:25)
[2023-10-14] MEDS: cefTRIAXone SOD 2 GM in D5W MINI-BAG PLUS 50 ML IV ONE (15:51)
[2023-10-14 15:55] LABS: APPEARANCE, BODY FLUID HAZY (CLEAR); PERITONEAL FL COLOR PALE YELLOW (COLORLESS); SOURCE, BODY FLUID PERITONEAL
[2023-10-14 16:07] LABS: MAGNESIUM LEVEL 2.1 MG/DL (1.8-2.4)
[2023-10-14 16:41] LABS: PROCALCITONIN >50.00 ng/ml
[2023-10-14 16:52] VITALS: BP 126/76; TEMP 100.8; O2SAT 91
[2023-10-14] MEDS: ATORVASTATIN 20 MG TAB PO SCH (17:44)
[2023-10-14] MEDS: ASPIRIN 81MG ENTERIC TABLET PO SCH (17:44)
[2023-10-14] MEDS: ACETAMINOPHEN TAB 650MG DOSE (2X325MG) PO PRN (17:45)
[2023-10-14] MEDS: SUCROFERRIC OXYHYDROXIDE 500MG CHEW TAB (VELPHORO) PO SCH (17:49)
[2023-10-14 19:32] LABS: APPEARANCE, BODY FLUID HAZY (CLEAR); PERITONEAL DIALYSATE FL COLOR PALE YELLOW (COLORLESS); SOURCE, BODY FLUID PERITONEAL DIALYSATE
[2023-10-14] MEDS: GABAPENTIN 300 MG CAP PO SCH (20:39)
[2023-10-14] MEDS: DOCUSATE SODIUM 100MG CAPSULE PO SCH (20:39)
[2023-10-14] MEDS: CARVedilol 12.5 MG TAB PO SCH (20:40)
[2023-10-14] MEDS: TERAZOSIN 1 MG CAP PO SCH (20:41)
[2023-10-14 21:42] VITALS: BP 113/72; TEMP 97.7; O2SAT 95
[2023-10-15] VITALS (8 sets, daily range): BP systolic 117–154; BP diastolic 77–92; TEMP 97.1–101.4; O2SAT 91–99
[2023-10-15] MEDS ORDERED: PIPERACILLIN/TAZOBACTAM SOD 2.25 GM in D5W MINI-BAG PLUS 50 ML IV SCH (04:00)
[2023-10-15] MEDS: CEFEPIME HCL 1 GM in D5W MINI-BAG PLUS 50 ML IV SCH (04:33)
[2023-10-15] MEDS: CALCITRIOL 0.25 MCG CAP (S0169) PO SCH (08:45)
[2023-10-15 10:12] LABS: BASO % 0.3 % (0.0-1.0); EOS # 0.2 10^3/uL (0.0-0.5); EOS % 1.7 % (0.0-3.0); HEMATOCRIT 23.5 % (36.0-47.0); HEMOGLOBIN 7.6 g/dl (12.0-15.5); LYMPH # 0.5 10^3/uL (1.5-5.0); LYMPH % 4.7 % (24.0-44.0); MEAN CORPUSCULAR HEMOGLOBIN 31.1 pg (27.0-33.0); MEAN CORPUSCULAR HGB CONC 32.3 g/dl (32.0-36.5); MEAN CORPUSCULAR VOLUME 96.3 fl (80.0-96.0); MONO # 0.4 10^3/uL (0.0-0.8); MONO % 4.6 % (2.0-8.0); NEUTROPHILS # 8.4 10^3/uL (1.5-8.5); NEUTROPHILS % 87.9 % (36.0-66.0); PLATELET COUNT, AUTOMATED 116 10^3/uL (150-450); RED BLOOD COUNT 2.44 10^6/uL (4.00-5.40); WHITE BLOOD COUNT 9.6 10^3/uL (4.0-10.0)
[2023-10-15 10:42] LABS: CK-MB VALUE MASS 1.6 NG/ML (<3.6)
[2023-10-15 10:43] LABS: MB/CK RELATIVE INDEX 0.78 (< OR =4)
[2023-10-15 10:51] LABS: BILIRUBIN,TOTAL 0.2 MG/DL (0.3-1.2); CREATININE FOR GFR 14.08 MG/DL (0.55-1.30); POTASSIUM SERUM 4.9 MMOL/L (3.5-5.1); TOTAL PROTEIN 4.8 G/DL (5.7-8.2)
[2023-10-15 13:42] LABS: PHOSPHORUS LEVEL 7.7 MG/DL (2.5-4.9)
[2023-10-15] MEDS: MUPIROCIN 2% OINT 22 GM TUBE EXT SCH (14:03)
[2023-10-15] MEDS ORDERED: cefTRIAXone SOD 1 GM in D5W MINI-BAG PLUS 50 ML IV SCH (16:00)
[2023-10-15] MEDS ORDERED: ACETAMINOPHEN TAB 650MG DOSE (2X325MG) PO PRN (16:20)
[2023-10-15] MEDS ORDERED: ACETAMINOPHEN 500 MG TAB PO PRN (16:30)
[2023-10-15] MEDS: MORPHINE 2 MG/ML 1ML VIAL IV PRN (17:26)
[2023-10-15] MEDS: LIDOCAINE 5% (LIDODERM) PATCH TD ONE (17:40)
[2023-10-15] MEDS: KETOROLAC 30 MG/ML 1ML VIAL IV ONE (17:41)
[2023-10-15] MEDS: NITROGLYCERIN 0.4MG SUBL TABLET SL PRN (18:27)
[2023-10-15 19:13] LABS: CK-MB VALUE MASS 3.2 NG/ML (<3.6)
[2023-10-15 19:14] LABS: MB/CK RELATIVE INDEX 1.28 (< OR =4)
[2023-10-15] MEDS: ANUSOL HC CREAM 30GM TOP SCH (21:00)
[2023-10-15] MEDS: KETOROLAC 30 MG/ML 1ML VIAL IV SCH (23:27)
[2023-10-16] VITALS (9 sets, daily range): BP systolic 100–162; BP diastolic 68–92; TEMP 97.2–99.3; O2SAT 92–98
[2023-10-16 05:34] LABS: BASO % 0.1 % (0.0-1.0); EOS # 0.3 10^3/uL (0.0-0.5); EOS % 3.6 % (0.0-3.0); HEMATOCRIT 22.5 % (36.0-47.0); LYMPH # 0.8 10^3/uL (1.5-5.0); MEAN CORPUSCULAR HGB CONC 31.1 g/dl (32.0-36.5); MEAN CORPUSCULAR VOLUME 99.6 fl (80.0-96.0); MONO # 0.5 10^3/uL (0.0-0.8); MONO % 6.3 % (2.0-8.0); NEUTROPHILS # 5.7 10^3/uL (1.5-8.5); NEUTROPHILS % 78.6 % (36.0-66.0); PLATELET COUNT, AUTOMATED 109 10^3/uL (150-450); RED BLOOD COUNT 2.26 10^6/uL (4.00-5.40); WHITE BLOOD COUNT 7.2 10^3/uL (4.0-10.0)
[2023-10-16 06:10] LABS: ALBUMIN 1.6 G/DL (3.2-5.2); CALCIUM LEVEL 7.9 MG/DL (8.5-10.1); CREATININE FOR GFR 13.06 MG/DL (0.55-1.30); GLOMERULAR FILTRATION RATE 3.2 (>51); PHOSPHORUS LEVEL 7.4 MG/DL (2.5-4.9); POTASSIUM SERUM 4.4 MMOL/L (3.5-5.1)
[2023-10-16] MEDS: DARBEPOETIN 100MCG/0.5ML *NON-DIALYSIS* SYRINGE SC SCH (09:29)
[2023-10-16] MEDS: VITAMIN D 50,000 UNITS CAPSULE (ERGOCALCIFEROL 1.25MG) PO SCH (09:30)
[2023-10-16 15:45] LABS: HEMATOCRIT 30.2 % (36.0-47.0); MEAN CORPUSCULAR HEMOGLOBIN 30.2 pg (27.0-33.0); MEAN CORPUSCULAR HGB CONC 32.1 g/dl (32.0-36.5); MEAN CORPUSCULAR VOLUME 94.1 fl (80.0-96.0); PLATELET COUNT, AUTOMATED 109 10^3/uL (150-450); RED BLOOD COUNT 3.21 10^6/uL (4.00-5.40); WHITE BLOOD COUNT 7.9 10^3/uL (4.0-10.0)
[2023-10-16 15:47] LABS: HEMOGLOBIN 9.7 g/dl (12.0-15.5)
[2023-10-17] VITALS (10 sets, daily range): BP systolic 119–168; BP diastolic 78–99; TEMP 97.7–98.4; O2SAT 95–100
[2023-10-17 05:44] LABS: HEMOGLOBIN 8.8 g/dl (12.0-15.5); MEAN CORPUSCULAR HEMOGLOBIN 30.4 pg (27.0-33.0); MEAN CORPUSCULAR HGB CONC 32.6 g/dl (32.0-36.5); MEAN CORPUSCULAR VOLUME 93.4 fl (80.0-96.0); PLATELET COUNT, AUTOMATED 110 10^3/uL (150-450); RED BLOOD COUNT 2.89 10^6/uL (4.00-5.40); WHITE BLOOD COUNT 7.2 10^3/uL (4.0-10.0)
[2023-10-17 06:13] LABS: ALBUMIN 1.7 G/DL (3.2-5.2); ALKALINE PHOSPHATASE 86 U/L (46-116); ALT/SGPT 39 U/L (7.0-40); AST/SGOT 26 U/L (<34); BILIRUBIN,TOTAL < 0.2 MG/DL (0.3-1.2); BLOOD UREA NITROGEN 75 MG/DL (9-23); CALCIUM LEVEL 8.1 MG/DL (8.5-10.1); CARBON DIOXIDE LEVEL 29 MMOL/L (20-31); CHLORIDE LEVEL 102 MMOL/L (98-107); CREATININE FOR GFR 11.63 MG/DL (0.55-1.30); GLOMERULAR FILTRATION RATE 3.7 (>51); GLUCOSE, FASTING 97 MG/DL (60-100); POTASSIUM SERUM 4.2 MMOL/L (3.5-5.1); SODIUM LEVEL 140 MMOL/L (136-145); TOTAL PROTEIN 4.5 G/DL (5.7-8.2)
[2023-10-17] MEDS ORDERED: CARV12.5 PO (12:04)
[2023-10-17] MEDS ORDERED: NITR0.4S14 SL (12:05)
[2023-10-17] MEDS ORDERED: PROB250C PO (12:14)
[2023-10-17] MEDS ORDERED: LEVO1TAB38 PO (17:26)
== END 2023-10-17 18:05 | disposition home or self-care (01) | DRG 871 ==
LOC: EDBD 07:44 → M ED 07:44 → M ED INP 15:24 → M MSPAV 16:52 → M PCU 10-15 19:18
PROVIDERS: ADMIT Hospitalist; ATTEND Internal Medicine
DX: A41.59 Other Gram-negative sepsis (principal); N18.6 End stage renal disease; I21.A1 Myocardial infarction type 2; J98.11 Atelectasis; Q61.3 Polycystic kidney, unspecified; J90 Pleural effusion, not elsewhere classified; I12.0 Hypertensive chronic kidney disease with stage 5 chronic kidney disease or end stage renal disease; R11.2 Nausea with vomiting, unspecified; R10.9 Unspecified abdominal pain; E78.5 Hyperlipidemia, unspecified; E87.5 Hyperkalemia; D64.9 Anemia, unspecified; I35.0 Nonrheumatic aortic (valve) stenosis; N28.1 Cyst of kidney, acquired; I25.10 Atherosclerotic heart disease of native coronary artery without angina pectoris; Z79.82 Long term (current) use of aspirin; Z79.899 Other long term (current) drug therapy

== ENCOUNTER 2023-10-26 13:23 | Emergency (ER) | payer MEDICARE ==
[~2023-10-26] VITALS: Ht 157.5 cm; Wt 54.2 kg
[~2023-10-26 13:23] MED LIST changes: +ASPI81TA26 PO; +ATOR80TA59 PO; +CARV25TA PO; +HYDR50TA46 PO; +LANT1000 PO; +LEVO1TAB38 PO; +LOSA100T5 PO; +NITR0.4S14 SL; +PROB250C PO; +TERA2CAP3 PO
[2023-10-26] MEDS ORDERED: ISOVUE-370 76% 100ML VIAL As Ordered ONE (13:31)
[2023-10-26 14:05] LABS: BASO # 0.1 10^3/uL (0.0-0.2); BASO % 0.8 % (0.0-1.0); EOS # 0.2 10^3/uL (0.0-0.5); EOS % 2.3 % (0.0-3.0); HEMATOCRIT 35.4 % (36.0-47.0); LYMPH # 1.5 10^3/uL (1.5-5.0); LYMPH % 19.8 % (24.0-44.0); MEAN CORPUSCULAR HEMOGLOBIN 30.6 pg (27.0-33.0); MEAN CORPUSCULAR HGB CONC 31.1 g/dl (32.0-36.5); MEAN CORPUSCULAR VOLUME 98.6 fl (80.0-96.0); MONO # 0.6 10^3/uL (0.0-0.8); MONO % 7.4 % (2.0-8.0); NEUTROPHILS # 5.2 10^3/uL (1.5-8.5); NEUTROPHILS % 68.9 % (36.0-66.0); PLATELET COUNT, AUTOMATED 253 10^3/uL (150-450); RED BLOOD COUNT 3.59 10^6/uL (4.00-5.40); WHITE BLOOD COUNT 7.5 10^3/uL (4.0-10.0)
[2023-10-26] MEDS ORDERED: LORazepam 2 MG/ML 1ML VIAL As Ordered ONE (14:07)
[2023-10-26 14:12] VITALS: BP 248/122
[2023-10-26] MEDS: LABETALOL 100MG/20ML VIAL IV STA (14:12)
[2023-10-26] MEDS: LORazepam 2 MG/ML 1ML VIAL IM STA (14:13)
[2023-10-26 14:15] VITALS: BP 248/122
[2023-10-26] MEDS ORDERED: PHENYTOIN INJ 250MG/5ML VIAL IV ONE (14:15)
[2023-10-26] MEDS ORDERED: MED REC IN PROGRESS XX SCH (14:15)
[2023-10-26 14:25] LABS: INR 1.06; PARTIAL THROMBOPLASTIN TIME 22.8 SECONDS (24.8-34.2); PROTHROMBIN TIME 13.5 SECONDS (12.5-14.5)
[2023-10-26] MEDS ORDERED: levETIRAcetam INJection 1,000 MG in D5W 100 ML IV ONE (14:25)
[2023-10-26] MEDS: niCARdipine IV 40 MG in IV 1 EA IV SCH (14:32)
[2023-10-26 14:44] LABS: CALCIUM LEVEL 8.1 MG/DL (8.5-10.1); CREATININE FOR GFR 12.95 MG/DL (0.55-1.30); GLOMERULAR FILTRATION RATE 3.3 (>51); POTASSIUM SERUM 5.1 MMOL/L (3.5-5.1)
[2023-10-26] MEDS: cefTRIAXone SOD 2 GM in D5W MINI-BAG PLUS 50 ML IV ONE (14:51)
[2023-10-26 15:06] LABS: ALBUMIN 2.3 G/DL (3.2-5.2); ALKALINE PHOSPHATASE 96 U/L (46-116); ALT/SGPT 21 U/L (7.0-40); AST/SGOT 24 U/L (<34); BILIRUBIN,DIRECT < 0.1 MG/DL (<0.4); BILIRUBIN,TOTAL < 0.2 MG/DL (0.3-1.2); TOTAL PROTEIN 5.5 G/DL (5.7-8.2)
[2023-10-26] MEDS ORDERED: PROB250C PO (15:06)
[2023-10-26] MEDS ORDERED: NITR0.4S14 SL (15:06)
[2023-10-26] MEDS ORDERED: HOME MED LIST COMPLETE! XX SCH (15:10)
[2023-10-26 15:13] LABS: OSMOLALITY SERUM 325 MOSM/KG (275-295)
[2023-10-26 15:30] VITALS: BP 129/84; O2SAT 94
[2023-10-26 15:34] VITALS: TEMP 98
== END 2023-10-26 15:49 | disposition short-term general hospital (02) ==
LOC: EDBD 13:23 → M ED 13:23
DX: I63.9 Cerebral infarction, unspecified (principal); I16.1 Hypertensive emergency; R56.9 Unspecified convulsions; Z86.73 Personal history of transient ischemic attack (TIA), and cerebral infarction without residual deficits; E78.5 Hyperlipidemia, unspecified; N18.6 End stage renal disease; Z99.2 Dependence on renal dialysis; Z79.82 Long term (current) use of aspirin; Z79.899 Other long term (current) drug therapy
CPT/HCPCS: 70450; 70496; 70498; 71045; 80047; 80048; 80076; 82140; 83605; 83930; 85025; 85610; 85730; 93005; 93041; 94760; 96365; 96368; 96372; 99285; J0696; J1920; J2060; Q9967

== ENCOUNTER → 2023-11-07 | Outpatient (REF) | payer MEDICARE ==
[2023-11-07 18:43] LABS: HEMOGLOBIN 8.5 g/dl (12.0-15.5); MEAN CORPUSCULAR HEMOGLOBIN 30.1 pg (27.0-33.0); MEAN CORPUSCULAR HGB CONC 31.5 g/dl (32.0-36.5); MEAN CORPUSCULAR VOLUME 95.7 fl (80.0-96.0); PLATELET COUNT, AUTOMATED 230 10^3/uL (150-450); RED BLOOD COUNT 2.82 10^6/uL (4.00-5.40); WHITE BLOOD COUNT 6.2 10^3/uL (4.0-10.0)
[2023-11-07 19:35] LABS: ALBUMIN 1.9 G/DL (3.2-5.2); ALKALINE PHOSPHATASE 73 U/L (46-116); ALT/SGPT 18 U/L (7.0-40); AST/SGOT 18 U/L (<34); BILIRUBIN,TOTAL < 0.2 MG/DL (0.3-1.2); BLOOD UREA NITROGEN 46 MG/DL (9-23); CALCIUM LEVEL 8.5 MG/DL (8.5-10.1); CARBON DIOXIDE LEVEL 28 MMOL/L (20-31); CHLORIDE LEVEL 107 MMOL/L (98-107); CREATININE FOR GFR 9.81 MG/DL (0.55-1.30); GLOMERULAR FILTRATION RATE 4.5 (>51); GLUCOSE, FASTING 68 MG/DL (60-100); POTASSIUM SERUM 4.8 MMOL/L (3.5-5.1); SODIUM LEVEL 139 MMOL/L (136-145); TOTAL PROTEIN 4.8 G/DL (5.7-8.2)
== END ==
LOC: M LAB REF 17:28
PROVIDERS: ATTEND Internal Medicine
DX: I33.0 Acute and subacute infective endocarditis (principal)

== ENCOUNTER → 2023-11-12 | Outpatient (REF) | payer MEDICARE | LOC: M LAB REF 16:26 | PROVIDERS: ATTEND Pediatrics | DX: R31.9 Hematuria, unspecified (principal) ==

== ENCOUNTER → 2023-11-30 | Outpatient (REF) | payer MEDICARE ==
[~2023-11-30] MED LIST changes: +ONDA-282 PO; -ONDA4TAB6 PO
[2023-11-30 20:04] LABS: BASO # 0.1 10^3/uL (0.0-0.2); BASO % 0.7 % (0.0-1.0); EOS # 0.5 10^3/uL (0.0-0.5); EOS % 7.5 % (0.0-3.0); HEMATOCRIT 27.5 % (36.0-47.0); HEMOGLOBIN 8.8 g/dl (12.0-15.5); LYMPH # 2.1 10^3/uL (1.5-5.0); LYMPH % 29.8 % (24.0-44.0); MEAN CORPUSCULAR HEMOGLOBIN 30.6 pg (27.0-33.0); MEAN CORPUSCULAR VOLUME 95.5 fl (80.0-96.0); MONO # 0.7 10^3/uL (0.0-0.8); MONO % 9.7 % (2.0-8.0); NEUTROPHILS # 3.6 10^3/uL (1.5-8.5); NEUTROPHILS % 52.2 % (36.0-66.0); PLATELET COUNT, AUTOMATED 201 10^3/uL (150-450); RED BLOOD COUNT 2.88 10^6/uL (4.00-5.40); WHITE BLOOD COUNT 6.9 10^3/uL (4.0-10.0)
[2023-11-30 20:59] LABS: ALBUMIN 2.2 G/DL (3.2-5.2); ALKALINE PHOSPHATASE 83 U/L (46-116); ALT/SGPT 18 U/L (7.0-40); AST/SGOT 25 U/L (<34); BILIRUBIN,TOTAL < 0.2 MG/DL (0.3-1.2); BLOOD UREA NITROGEN 67 MG/DL (9-23); CALCIUM LEVEL 8.8 MG/DL (8.5-10.1); CARBON DIOXIDE LEVEL 29 MMOL/L (20-31); CHLORIDE LEVEL 104 MMOL/L (98-107); GLUCOSE, FASTING 58 MG/DL (60-100); POTASSIUM SERUM 5.6 MMOL/L (3.5-5.1); SODIUM LEVEL 141 MMOL/L (136-145); TOTAL PROTEIN 5.2 G/DL (5.7-8.2)
== END ==
LOC: M LAB REF 19:30
PROVIDERS: ATTEND Internal Medicine
DX: I33.0 Acute and subacute infective endocarditis (principal)

== ENCOUNTER → 2024-01-14 | Outpatient (CLI) | payer MEDICARE, MEDICAID ==
[2024-01-14 14:40] LABS: CALCIUM LEVEL 8.1 MG/DL (8.5-10.1); CREATININE FOR GFR 16.15 MG/DL (0.55-1.30); GLOMERULAR FILTRATION RATE 2.5 (>51); POTASSIUM SERUM 5.2 MMOL/L (3.5-5.1)
== END ==
LOC: M LAB 13:27
PROVIDERS: ATTEND Internal Medicine Cardiovascular Disease
DX: E87.5 Hyperkalemia (principal)

== ENCOUNTER 2024-06-16 11:40 | Inpatient (IN) | payer MEDICARE ==
[~2024-06-16] VITALS: Ht 157.5 cm; Wt 58.8 kg
[~2024-06-16 11:40] MED LIST changes: +GABA-1172; -GABA-282; -MUPI2OI EXT; +MUPI2OI TOP
[2024-06-16 13:30] VITALS: BP 161/85; TEMP 99.6; O2SAT 97
[2024-06-16 13:41] LABS: BASO % 0.3 % (0.0-1.0); EOS # 0.2 10^3/uL (0.0-0.5); EOS % 3.3 % (0.0-3.0); HEMATOCRIT 26.9 % (36.0-47.0); HEMOGLOBIN 8.5 g/dl (12.0-15.5); LYMPH # 0.5 10^3/uL (1.5-5.0); LYMPH % 8.6 % (24.0-44.0); MEAN CORPUSCULAR HEMOGLOBIN 30.7 pg (27.0-33.0); MEAN CORPUSCULAR HGB CONC 31.6 g/dl (32.0-36.5); MEAN CORPUSCULAR VOLUME 97.1 fl (80.0-96.0); MONO # 0.6 10^3/uL (0.0-0.8); MONO % 9.7 % (2.0-8.0); NEUTROPHILS # 4.9 10^3/uL (1.5-8.5); NEUTROPHILS % 77.8 % (36.0-66.0); PLATELET COUNT, AUTOMATED 205 10^3/uL (150-450); RED BLOOD COUNT 2.77 10^6/uL (4.00-5.40); WHITE BLOOD COUNT 6.3 10^3/uL (4.0-10.0)
[2024-06-16 13:59] LABS: INR 0.98; PARTIAL THROMBOPLASTIN TIME 24.3 SECONDS (24.8-34.2); PROTHROMBIN TIME 13.3 SECONDS (12.5-14.5)
[2024-06-16 14:04] LABS: CPK CREATINE PHOSPHOKINASE 538 U/L (34-145); MB/CK RELATIVE INDEX 0.92 (< OR =4)
[2024-06-16 14:08] LABS: BLOOD UREA NITROGEN 68 MG/DL (9-23); CALCIUM LEVEL 9.7 MG/DL (8.5-10.1); CARBON DIOXIDE LEVEL 27 MMOL/L (20-31); CHLORIDE LEVEL 104 MMOL/L (98-107); CREATININE FOR GFR 14.62 MG/DL (0.55-1.30); GLOMERULAR FILTRATION RATE 2.8 (>51); GLUCOSE, FASTING 90 MG/DL (60-100); SODIUM LEVEL 141 MMOL/L (136-145)
[2024-06-16 14:26] LABS: FREE T4 1.01 NG/DL (0.89-1.76); THYROID STIMULATING HORMONE 4.867 uIU/ML (0.55-4.78)
[2024-06-16 14:27] LABS: ALBUMIN 2.6 G/DL (3.2-5.2); ALKALINE PHOSPHATASE 50 U/L (35-104); ALT/SGPT 20 U/L (7.0-40); AST/SGOT 22 U/L (<34); BILIRUBIN,DIRECT < 0.1 MG/DL (<0.4); BILIRUBIN,TOTAL < 0.2 MG/DL (0.3-1.2); TOTAL PROTEIN 5.6 G/DL (5.7-8.2)
[2024-06-16] MEDS: CALCIUM GLUCONATE 1,000 MG in DEXTROSE 5% (D5W) MINI-BAG PLU 100 ML IV ONE ×2 (15:24→23:04)
[2024-06-16 15:45] LABS: CK-MB VALUE MASS 3.3 NG/ML (<3.6); MB/CK RELATIVE INDEX 0.64 (< OR =4)
[2024-06-16] MEDS: DEXTROSE 50% 50ML SYRINGE IV STA ×2 (16:55→22:08)
[2024-06-16] MEDS: HumuLIN R (REGULAR) INSULIN (NovoLIN R) **100U/ML** PER UNIT IV ONE (16:55)
[2024-06-16] MEDS: PATIROMER SORBITEX CALCIUM 8.4 GM POWDER PACKET (VELTASSA) PO ONE (17:09)
[2024-06-16] MEDS ORDERED: NITROGLYCERIN 0.4MG SUBL TABLET SL PRN (17:45)
[2024-06-16] MEDS ORDERED: AURYXIA 210 MG PO SCH (18:00)
[2024-06-16 18:03] LABS: FERRITIN 1080.8 NG/ML (7.3-270.7)
[2024-06-16 18:08] LABS: LDH LACTATE DEHYDROGENASE 253 U/L (120-246)
[2024-06-16 18:09] LABS: C REACTIVE PROTEIN QUANTITATIV < 0.50 MG/DL (<1.0)
[2024-06-16] MEDS: ACETAMINOPHEN 500 MG TAB PO ONE (18:20)
[2024-06-16] MEDS: ACETAMINOPHEN 325 MG TAB PO PRN (18:46)
[2024-06-16] MEDS: COMBIVENT RESPIMAT 100-20MCG INHALER 4GM INH SCH (19:37)
[2024-06-16] MEDS ORDERED: AMLO1TAB25 PO (20:10)
[2024-06-16] MEDS ORDERED: LACO100T PO (20:12)
[2024-06-16] MEDS ORDERED: HYDR-3490 PO (20:12)
[2024-06-16] MEDS ORDERED: CLON-412 PO (20:12)
[2024-06-16] MEDS ORDERED: HOME MED LIST COMPLETE! XX SCH (20:15)
[2024-06-16 20:38] LABS: CALCIUM LEVEL 9.7 MG/DL (8.5-10.1); CREATININE FOR GFR 15.26 MG/DL (0.55-1.30); GLOMERULAR FILTRATION RATE 2.7 (>51); POTASSIUM SERUM 6.1 MMOL/L (3.5-5.1)
[2024-06-16] MEDS: GABAPENTIN 300 MG CAP PO SCH (21:00)
[2024-06-16] MEDS: guaiFENesin ER TABLET 600 MG TAB PO SCH (21:00)
[2024-06-16] MEDS: HumuLIN R (REGULAR) INSULIN (NovoLIN R) **100U/ML** PER UNIT IV STA (21:08)
[2024-06-16] MEDS: CARVedilol 12.5 MG TAB PO SCH (22:08)
[2024-06-16] MEDS: ATORVASTATIN 20 MG TAB PO SCH (22:08)
[2024-06-16 22:29] LABS: PHOSPHORUS LEVEL 3.1 MG/DL (2.5-4.9)
[2024-06-16 23:20] VITALS: BP 163/96; TEMP 99; O2SAT 98
[2024-06-17] VITALS (7 sets, daily range): BP systolic 117–178; BP diastolic 82–87; TEMP 98.6–99.1; O2SAT 91–98
[2024-06-17] MEDS: SODIUM BICARBONATE 150 MEQ in D5W 1,000 ML IV SCH (00:57)
[2024-06-17 02:00] LABS: CALCIUM LEVEL 9.4 MG/DL (8.5-10.1); CREATININE FOR GFR 15.37 MG/DL (0.55-1.30); GLOMERULAR FILTRATION RATE 2.7 (>51); POTASSIUM SERUM 5.6 MMOL/L (3.5-5.1)
[2024-06-17 07:43] LABS: BASO % 0.4 % (0.0-1.0); EOS # 0.1 10^3/uL (0.0-0.5); HEMATOCRIT 25.1 % (36.0-47.0); HEMOGLOBIN 7.7 g/dl (12.0-15.5); LYMPH # 0.7 10^3/uL (1.5-5.0); LYMPH % 13.8 % (24.0-44.0); MEAN CORPUSCULAR HEMOGLOBIN 29.6 pg (27.0-33.0); MEAN CORPUSCULAR HGB CONC 30.7 g/dl (32.0-36.5); MEAN CORPUSCULAR VOLUME 96.5 fl (80.0-96.0); MONO # 0.6 10^3/uL (0.0-0.8); MONO % 12.5 % (2.0-8.0); NEUTROPHILS # 3.3 10^3/uL (1.5-8.5); NEUTROPHILS % 69.5 % (36.0-66.0); PLATELET COUNT, AUTOMATED 174 10^3/uL (150-450); WHITE BLOOD COUNT 4.7 10^3/uL (4.0-10.0)
[2024-06-17 08:38] LABS: CALCIUM LEVEL 9.5 MG/DL (8.5-10.1); CREATININE FOR GFR 15.21 MG/DL (0.55-1.30); GLOMERULAR FILTRATION RATE 2.7 (>51); POTASSIUM SERUM 5.4 MMOL/L (3.5-5.1)
[2024-06-17] MEDS: cloNIDine 0.1MG TABLET PO SCH (08:48)
[2024-06-17] MEDS: NEPHRO-VIT TAB (NEPHROCAPS) PO SCH (08:48)
[2024-06-17] MEDS: ASPIRIN 81MG ENTERIC TABLET PO SCH (08:48)
[2024-06-17] MEDS: LACOSAMIDE 50 MG TAB (VIMPAT) PO SCH (08:48)
[2024-06-17] MEDS: CALCITRIOL 0.25 MCG CAP (S0169) PO SCH (08:48)
[2024-06-17] MEDS: **hydrALAZINE** 50 MG TAB PO SCH (08:48)
[2024-06-17 08:49] LABS: PERCENT SATURATION 13.1 % (13.2-45.0)
[2024-06-17] MEDS: HEPARIN SOD (PORCINE) 5000UNITS/ML 1ML VIAL/SYRINGE SQ SCH (08:49)
[2024-06-17] MEDS: SUCROFERRIC OXYHYDROXIDE 500MG CHEW TAB (VELPHORO) PO SCH (08:49)
[2024-06-17] MEDS ORDERED: ENTER DRUG NAME HERE (PATIENT'S OWN MED) PO SCH (09:00)
[2024-06-17 11:00] LABS: CALCIUM LEVEL 9.2 MG/DL (8.5-10.1); CREATININE FOR GFR 15.33 MG/DL (0.55-1.30); GLOMERULAR FILTRATION RATE 2.7 (>51); POTASSIUM SERUM 5.9 MMOL/L (3.5-5.1)
[2024-06-17] MEDS: FERRIC CARBOXYMALTOSE INJ 750 MG, VIAL MATE ADAPTER 1 EACH in NS 100 ML IV ONE (13:59)
[2024-06-17] MEDS: REMDESIVIR 200 MG in NS 250 ML IV ONE (15:11)
[2024-06-17] MEDS: LORazepam 0.5 MG TAB PO PRN (17:44)
[2024-06-17] MEDS: TERAZOSIN 1 MG CAP PO SCH (22:00)
[2024-06-18 03:09] VITALS: BP 155/89; TEMP 99.3; O2SAT 93
[2024-06-18 06:32] LABS: BASO % 0.2 % (0.0-1.0); EOS # 0.2 10^3/uL (0.0-0.5); EOS % 4.2 % (0.0-3.0); HEMATOCRIT 23.5 % (36.0-47.0); HEMOGLOBIN 7.6 g/dl (12.0-15.5); LYMPH % 23.5 % (24.0-44.0); MEAN CORPUSCULAR HEMOGLOBIN 31.3 pg (27.0-33.0); MEAN CORPUSCULAR HGB CONC 32.3 g/dl (32.0-36.5); MEAN CORPUSCULAR VOLUME 96.7 fl (80.0-96.0); MONO # 0.6 10^3/uL (0.0-0.8); MONO % 14.8 % (2.0-8.0); NEUTROPHILS # 2.4 10^3/uL (1.5-8.5); NEUTROPHILS % 57.1 % (36.0-66.0); PLATELET COUNT, AUTOMATED 163 10^3/uL (150-450); RED BLOOD COUNT 2.43 10^6/uL (4.00-5.40); WHITE BLOOD COUNT 4.3 10^3/uL (4.0-10.0)
[2024-06-18 06:55] LABS: CALCIUM LEVEL 8.7 MG/DL (8.5-10.1); CREATININE FOR GFR 15.46 MG/DL (0.55-1.30); GLOMERULAR FILTRATION RATE 2.6 (>51); POTASSIUM SERUM 5.8 MMOL/L (3.5-5.1)
[2024-06-18 08:00] VITALS: BP 150/90; TEMP 98.8; O2SAT 93
[2024-06-18] MEDS: DARBEPOETIN 100MCG/0.5ML *NON-DIALYSIS* SYRINGE SC SCH (10:50)
[2024-06-18] MEDS: PATIROMER SORBITEX CALCIUM 8.4 GM POWDER PACKET (VELTASSA) PO SCH (11:09)
[2024-06-18 12:00] VITALS: BP 119/71; TEMP 97.6; O2SAT 96
[2024-06-18] MEDS: REMDESIVIR 100 MG in NS 100 ML IV SCH (14:22)
[2024-06-18 16:00] VITALS: BP 129/83; TEMP 98.1; O2SAT 95
[2024-06-18 20:30] VITALS: TEMP 100.1; O2SAT 96
[2024-06-18 21:55] VITALS: BP 139/87; TEMP 100.5; O2SAT 96
[2024-06-19] VITALS (8 sets, daily range): BP systolic 116–160; BP diastolic 72–86; TEMP 97.3–99.4; O2SAT 90–97
[2024-06-19 06:43] LABS: BASO % 0.4 % (0.0-1.0); EOS # 0.3 10^3/uL (0.0-0.5); EOS % 5.8 % (0.0-3.0); HEMATOCRIT 26.6 % (36.0-47.0); HEMOGLOBIN 8.1 g/dl (12.0-15.5); LYMPH # 1.4 10^3/uL (1.5-5.0); LYMPH % 25.8 % (24.0-44.0); MEAN CORPUSCULAR HEMOGLOBIN 29.8 pg (27.0-33.0); MEAN CORPUSCULAR HGB CONC 30.5 g/dl (32.0-36.5); MEAN CORPUSCULAR VOLUME 97.8 fl (80.0-96.0); MONO # 0.7 10^3/uL (0.0-0.8); MONO % 12.3 % (2.0-8.0); NEUTROPHILS # 3.1 10^3/uL (1.5-8.5); NEUTROPHILS % 55.3 % (36.0-66.0); PLATELET COUNT, AUTOMATED 164 10^3/uL (150-450); RED BLOOD COUNT 2.72 10^6/uL (4.00-5.40); WHITE BLOOD COUNT 5.5 10^3/uL (4.0-10.0)
[2024-06-19 07:21] LABS: HEPATITIS B SURFACE ANTIBODY POSITIVE (POSITIVE)
[2024-06-19 07:33] LABS: HEPATITIS B SURFACE ANTIGEN NEGATIVE (NEGATIVE)
[2024-06-19 07:54] LABS: HEPATITIS B CORE ANTIBODY IGM NEGATIVE (NEGATIVE)
[2024-06-19 07:55] LABS: HEPATITIS C VIRUS ABY INDEX < 0.02 INDEX (<0.8)
[2024-06-19 08:02] LABS: BLOOD UREA NITROGEN 71 MG/DL (9-23); CALCIUM LEVEL 8.8 MG/DL (8.5-10.1); CARBON DIOXIDE LEVEL 27 MMOL/L (20-31); CHLORIDE LEVEL 105 MMOL/L (98-107); CREATININE FOR GFR 15.38 MG/DL (0.55-1.30); GLOMERULAR FILTRATION RATE 2.7 (>51); GLUCOSE, FASTING 81 MG/DL (60-100); PHOSPHORUS LEVEL 4.4 MG/DL (2.5-4.9); POTASSIUM SERUM 5.2 MMOL/L (3.5-5.1); SODIUM LEVEL 144 MMOL/L (136-145)
[2024-06-19 11:07] LABS: APPEARANCE, BODY FLUID CLEAR (CLEAR); PERITONEAL FL COLOR COLORLESS (COLORLESS); SOURCE, BODY FLUID PERITONEAL
[2024-06-19] MEDS ORDERED: VANCOMYCIN INTERMITTENT/PULSE DOSING BY CLINICAL PHARMACIST PER DOSING PROTOCOL XX SCH (12:10)
[2024-06-19] MEDS: VANCOMYCIN 1,000 MG/200 ML IV BAG *LOAD IV ONE (12:45)
[2024-06-19] MEDS ORDERED: LIDOCAINE 2% 100MG/5ML SDV (FOR ANES.) As Ordered ONE (16:09)
[2024-06-19] MEDS ORDERED: propofoL 200 MG/20 ML VIAL As Ordered ONE (16:09)
[2024-06-19] MEDS ORDERED: fentaNYL 100 MCG/2 ML INJECTION As Ordered ONE (16:10)
[2024-06-19] MEDS ORDERED: MIDAZOLAM INJ 2MG/2ML VIAL As Ordered ONE (16:10)
[2024-06-19] MEDS ORDERED: KETOROLAC 60MG 2ML VIAL As Ordered ONE (16:35)
[2024-06-19] MEDS: CEFEPIME HCL 1 GM in DEXTROSE 5% (D5W) ADV/MINI-BAG 50 ML IV SCH (17:27)
[2024-06-20 03:43] VITALS: BP 129/84; TEMP 97.4; O2SAT 95
[2024-06-20] MEDS ORDERED: SODIUM CHLORIDE 0.9% 1000 ML IV PRN (06:00)
[2024-06-20] MEDS ORDERED: HEPARIN 1,000UNITS/ML 10ML VIAL (FOR RADIOLOGY & DIALYSIS ONLY) XX SCH (06:00)
[2024-06-20] MEDS ORDERED: HEPARIN 1,000UNITS/ML 10ML VIAL (FOR RADIOLOGY & DIALYSIS ONLY) IV PRN (06:00)
[2024-06-20 07:35] LABS: BASO % 0.1 % (0.0-1.0); EOS # 0.4 10^3/uL (0.0-0.5); EOS % 5.4 % (0.0-3.0); HEMATOCRIT 24.7 % (36.0-47.0); HEMOGLOBIN 7.6 g/dl (12.0-15.5); LYMPH # 1.8 10^3/uL (1.5-5.0); LYMPH % 24.8 % (24.0-44.0); MEAN CORPUSCULAR HEMOGLOBIN 29.8 pg (27.0-33.0); MEAN CORPUSCULAR HGB CONC 30.8 g/dl (32.0-36.5); MEAN CORPUSCULAR VOLUME 96.9 fl (80.0-96.0); MONO # 0.5 10^3/uL (0.0-0.8); MONO % 7.6 % (2.0-8.0); NEUTROPHILS # 4.4 10^3/uL (1.5-8.5); NEUTROPHILS % 61.8 % (36.0-66.0); PLATELET COUNT, AUTOMATED 152 10^3/uL (150-450); RED BLOOD COUNT 2.55 10^6/uL (4.00-5.40); WHITE BLOOD COUNT 7.1 10^3/uL (4.0-10.0)
[2024-06-20 08:11] LABS: CALCIUM LEVEL 8.1 MG/DL (8.5-10.1); CREATININE FOR GFR 15.51 MG/DL (0.55-1.30); GLOMERULAR FILTRATION RATE 2.6 (>51); POTASSIUM SERUM 5.3 MMOL/L (3.5-5.1)
[2024-06-20 08:21] VITALS: BP 126/74; TEMP 98.8; O2SAT 95
[2024-06-20 12:18] VITALS: BP 115/76; TEMP 99.1; O2SAT 95
[2024-06-20 16:16] VITALS: BP 134/83; TEMP 99.2; O2SAT 95
[2024-06-20] MEDS ORDERED: ceFAZolin 2 GM/D5W 50 ML IV BAG As Ordered ONE (16:34)
[2024-06-20] MEDS ORDERED: HEPARIN 1,000UNITS/ML 10ML VIAL (FOR RADIOLOGY & DIALYSIS ONLY) As Ordered ONE (16:35)
[2024-06-20] MEDS ORDERED: LIDOCAINE 1% MDV 20ML VIAL As Ordered ONE (16:35)
[2024-06-20] MEDS ORDERED: NS (Normal Saline) 0.9% 1,000 ML IV SCH (17:10)
[2024-06-20] MEDS: ceFAZolin SOD 2 GM in IV 1 EA IV ONE (17:24)
[2024-06-20 18:00] VITALS: BP 138/63; TEMP 98.8; O2SAT 96
[2024-06-20 21:00] VITALS: BP 138/79; TEMP 99.9; O2SAT 96
[2024-06-21] VITALS: BP 109/71; TEMP 100.2; O2SAT 99
[2024-06-21 05:44] VITALS: BP 126/75; TEMP 98.1; O2SAT 96
[2024-06-21] MEDS ORDERED: SODIUM CHLORIDE 0.9% 1000 ML IV PRN (06:00)
[2024-06-21] MEDS ORDERED: LIDOCAINE 1% SDV 5ML VIAL SC PRN (06:00)
[2024-06-21] MEDS ORDERED: HEPARIN 1,000UNITS/ML 10ML VIAL (FOR RADIOLOGY & DIALYSIS ONLY) IV PRN (06:00)
[2024-06-21 07:43] LABS: BASO % 0.3 % (0.0-1.0); EOS # 0.3 10^3/uL (0.0-0.5); EOS % 4.6 % (0.0-3.0); HEMATOCRIT 24.2 % (36.0-47.0); HEMOGLOBIN 7.5 g/dl (12.0-15.5); LYMPH # 1.9 10^3/uL (1.5-5.0); LYMPH % 25.9 % (24.0-44.0); MEAN CORPUSCULAR HEMOGLOBIN 30.1 pg (27.0-33.0); MEAN CORPUSCULAR VOLUME 97.2 fl (80.0-96.0); MONO # 0.6 10^3/uL (0.0-0.8); MONO % 8.3 % (2.0-8.0); NEUTROPHILS # 4.3 10^3/uL (1.5-8.5); NEUTROPHILS % 59.9 % (36.0-66.0); PLATELET COUNT, AUTOMATED 166 10^3/uL (150-450); RED BLOOD COUNT 2.49 10^6/uL (4.00-5.40); WHITE BLOOD COUNT 7.2 10^3/uL (4.0-10.0)
[2024-06-21 08:05] LABS: CALCIUM LEVEL 7.6 MG/DL (8.5-10.1); CREATININE FOR GFR 16.69 MG/DL (0.55-1.30); GLOMERULAR FILTRATION RATE 2.4 (>51); POTASSIUM SERUM 5.5 MMOL/L (3.5-5.1)
[2024-06-21] MEDS: HEPARIN 1,000UNITS/ML 10ML VIAL (FOR RADIOLOGY & DIALYSIS ONLY) XX SCH (10:08)
[2024-06-21 12:17] VITALS: BP 159/91; TEMP 97.4; O2SAT 98
[2024-06-21] MEDS: ONDANSETRON 4MG 2ML VIAL IV PRN (12:53)
[2024-06-21] MEDS: HEPARIN SOD (PORCINE) 5000UNITS/ML 1ML VIAL/SYRINGE SQ SCH (12:58)
[2024-06-21 16:00] VITALS: BP 147/85; TEMP 97.7; O2SAT 99
[2024-06-21] MEDS ORDERED: VANCOMYCIN HCL 500 MG in DEXTROSE 5% (D5W) MINI-BAG PLU 100 ML IV SCH (16:00)
[2024-06-21 16:06] VITALS: BP 129/91
[2024-06-21] MEDS: MORPHINE 2 MG/ML 1ML VIAL IV ONE (18:18)
[2024-06-21] MEDS: METOCLOPRAMIDE INJ 10MG/2ML VIAL IV ONE (18:18)
[2024-06-21 20:00] VITALS: BP 135/86; TEMP 98.2; O2SAT 97
[2024-06-22] VITALS (7 sets, daily range): BP systolic 123–156; BP diastolic 78–87; TEMP 97.5–99.3; O2SAT 93–98
[2024-06-22] MEDS ORDERED: SODIUM CHLORIDE 0.9% 250ML IV PRN (06:00)
[2024-06-22] MEDS ORDERED: HEPARIN 1,000UNITS/ML 10ML VIAL (FOR RADIOLOGY & DIALYSIS ONLY) IV PRN (06:00)
[2024-06-22] MEDS ORDERED: LIDOCAINE 1% SDV 5ML VIAL SC PRN (06:00)
[2024-06-22 07:42] LABS: BASO % 0.4 % (0.0-1.0); EOS # 0.3 10^3/uL (0.0-0.5); EOS % 4.1 % (0.0-3.0); HEMATOCRIT 27.7 % (36.0-47.0); HEMOGLOBIN 8.5 g/dl (12.0-15.5); LYMPH # 1.4 10^3/uL (1.5-5.0); LYMPH % 20.3 % (24.0-44.0); MEAN CORPUSCULAR HEMOGLOBIN 29.7 pg (27.0-33.0); MEAN CORPUSCULAR HGB CONC 30.7 g/dl (32.0-36.5); MEAN CORPUSCULAR VOLUME 96.9 fl (80.0-96.0); MONO # 0.6 10^3/uL (0.0-0.8); MONO % 9.3 % (2.0-8.0); NEUTROPHILS # 4.5 10^3/uL (1.5-8.5); NEUTROPHILS % 64.9 % (36.0-66.0); PLATELET COUNT, AUTOMATED 167 10^3/uL (150-450); RED BLOOD COUNT 2.86 10^6/uL (4.00-5.40); WHITE BLOOD COUNT 6.9 10^3/uL (4.0-10.0)
[2024-06-22 08:14] LABS: CREATININE FOR GFR 7.97 MG/DL (0.55-1.30); GLOMERULAR FILTRATION RATE 5.7 (>51); POTASSIUM SERUM 4.4 MMOL/L (3.5-5.1)
[2024-06-22] MEDS: HEPARIN 1,000UNITS/ML 10ML VIAL (FOR RADIOLOGY & DIALYSIS ONLY) XX SCH (10:06)
[2024-06-23 04:11] VITALS: BP 144/82; TEMP 99.2; O2SAT 96
[2024-06-23 05:38] LABS: BASO % 0.3 % (0.0-1.0); EOS # 0.3 10^3/uL (0.0-0.5); HEMATOCRIT 26.2 % (36.0-47.0); LYMPH # 1.6 10^3/uL (1.5-5.0); LYMPH % 25.3 % (24.0-44.0); MEAN CORPUSCULAR HEMOGLOBIN 30.1 pg (27.0-33.0); MEAN CORPUSCULAR HGB CONC 30.5 g/dl (32.0-36.5); MEAN CORPUSCULAR VOLUME 98.5 fl (80.0-96.0); MONO # 0.6 10^3/uL (0.0-0.8); MONO % 9.2 % (2.0-8.0); NEUTROPHILS # 3.8 10^3/uL (1.5-8.5); NEUTROPHILS % 59.8 % (36.0-66.0); PLATELET COUNT, AUTOMATED 175 10^3/uL (150-450); RED BLOOD COUNT 2.66 10^6/uL (4.00-5.40); WHITE BLOOD COUNT 6.4 10^3/uL (4.0-10.0)
[2024-06-23 05:58] LABS: CALCIUM LEVEL 7.8 MG/DL (8.5-10.1); CREATININE FOR GFR 5.27 MG/DL (0.55-1.30); GLOMERULAR FILTRATION RATE 9.1 (>51); POTASSIUM SERUM 3.7 MMOL/L (3.5-5.1)
[2024-06-23] MEDS ORDERED: HEPARIN 1,000UNITS/ML 10ML VIAL (FOR RADIOLOGY & DIALYSIS ONLY) IV PRN (06:00)
[2024-06-23] MEDS ORDERED: SODIUM CHLORIDE 0.9% 250ML IV PRN (06:00)
[2024-06-23] MEDS ORDERED: LIDOCAINE 1% SDV 5ML VIAL SC PRN (06:00)
[2024-06-23] MEDS: HEPARIN 1,000UNITS/ML 10ML VIAL (FOR RADIOLOGY & DIALYSIS ONLY) XX SCH (10:39)
[2024-06-24] MEDS ORDERED: LACO100T PO (16:40)
== END 2024-06-23 12:27 | disposition home or self-care (01) | DRG 919 ==
LOC: M ED 11:40 → M ED INP 16:56 → M PCU 23:32
PROVIDERS: ADMIT General Practice; ATTEND General Practice
PROC: 0WPGX3Z Removal of Infusion Device from Peritoneal Cavity, External Approach (ICD-10-PCS; principal; 2024-06-19 15:30)
PROC: 0JH63XZ Insertion of Tunneled Vascular Access Device into Chest Subcutaneous Tissue and Fascia, Percutaneous Approach (ICD-10-PCS; 2024-06-20)
PROC: 5A1D70Z Performance of Urinary Filtration, Intermittent, Less than 6 Hours Per Day (ICD-10-PCS; 2024-06-23)
DX: T85.71XA Infection and inflammatory reaction due to peritoneal dialysis catheter, initial encounter (principal); N18.6 End stage renal disease; I67.83 Posterior reversible encephalopathy syndrome; U07.1 COVID-19; Q61.3 Polycystic kidney, unspecified; D63.1 Anemia in chronic kidney disease; F17.200 Nicotine dependence, unspecified, uncomplicated; E78.5 Hyperlipidemia, unspecified; G40.909 Epilepsy, unspecified, not intractable, without status epilepticus; E87.5 Hyperkalemia; I15.0 Renovascular hypertension; I35.0 Nonrheumatic aortic (valve) stenosis; E21.3 Hyperparathyroidism, unspecified; D50.9 Iron deficiency anemia, unspecified; Z79.82 Long term (current) use of aspirin; Z79.899 Other long term (current) drug therapy; Z99.2 Dependence on renal dialysis; Z86.73 Personal history of transient ischemic attack (TIA), and cerebral infarction without residual deficits

== ENCOUNTER 2024-07-18 11:02 | Emergency (ER) | payer MEDICARE ==
[~2024-07-18] VITALS: Ht 157.5 cm; Wt 56.0 kg
[~2024-07-18 11:02] MED LIST changes: +AMLO1TAB25 PO; +CLON-412 PO; +HYDR-3490 PO; +LACO100T PO
[2024-07-18] MEDS ORDERED: ASPE4PAD TOP (15:23)
[2024-07-18] MEDS ORDERED: MEDR4PAK PO (15:23)
[2024-07-18] MEDS ORDERED: METH-1164 PO (15:23)
[2024-07-18 15:35] VITALS: BP 131/66; TEMP 97.6; O2SAT 98
== END 2024-07-18 15:35 | disposition home or self-care (01) ==
LOC: M ED 11:02
DX: M51.371 Other intervertebral disc degeneration, lumbosacral region with lower extremity pain only (principal); I12.0 Hypertensive chronic kidney disease with stage 5 chronic kidney disease or end stage renal disease; E78.5 Hyperlipidemia, unspecified; Z99.2 Dependence on renal dialysis; F17.200 Nicotine dependence, unspecified, uncomplicated; Z79.82 Long term (current) use of aspirin; Z79.899 Other long term (current) drug therapy

== ENCOUNTER 2024-07-23 07:58 | Emergency (ER) | payer MEDICARE ==
[~2024-07-23] VITALS: Ht 157.5 cm; Wt 57.4 kg
[~2024-07-23 07:58] MED LIST changes: +ASPE4PAD TOP; +MEDR4PAK PO; +METH-1164 PO
[2024-07-23] MEDS: ACETAMINOPHEN 500 MG TAB PO ONE (10:39)
[2024-07-23] MEDS: diazePAM 5MG TABLET PO ONE (10:40)
[2024-07-23] MEDS: oxyCODONE 5MG TAB PO ONE (11:46)
[2024-07-23] MEDS ORDERED: PERCOCET PO (12:42)
[2024-07-23 12:46] VITALS: BP 161/93; TEMP 97.3; O2SAT 97
== END 2024-07-23 12:52 | disposition home or self-care (01) ==
LOC: M ED 07:58
DX: M54.42 Lumbago with sciatica, left side (principal); I10 Essential (primary) hypertension; E78.00 Pure hypercholesterolemia, unspecified; G43.909 Migraine, unspecified, not intractable, without status migrainosus; F41.9 Anxiety disorder, unspecified; F40.240 Claustrophobia; N18.6 End stage renal disease; Z99.2 Dependence on renal dialysis; Z87.19 Personal history of other diseases of the digestive system; Z86.73 Personal history of transient ischemic attack (TIA), and cerebral infarction without residual deficits; Z79.82 Long term (current) use of aspirin; Z79.899 Other long term (current) drug therapy

== ENCOUNTER → 2024-08-15 | Outpatient (CLI) | payer MEDICARE ==
[~2024-08-15] MED LIST changes: +PERCOCET PO; +VANC125C13 PO; -VANC125C3 PO
== END ==
LOC: M PLAIMG 10:11
PROVIDERS: ATTEND Family Medicine
DX: M54.42 Lumbago with sciatica, left side (principal)

== ENCOUNTER 2024-08-22 06:34 | Inpatient (IN) | payer MEDICARE ==
[~2024-08-22] VITALS: Ht 162.6 cm; Wt 54.9 kg
[~2024-08-22 06:34] MED LIST changes: +GABA-1172 PO
[2024-08-22 08:20] LABS: VENOUS BASE EXCESS 6.2 (-2.0-2.0); VENOUS HCO3 30.6 MMOL/L (23.0-27.0); VENOUS O2 SATURATION 94.2 % (60.0-80.0); VENOUS PARTIAL PRESSURE CO2 43.1 mmHg (38.0-50.0); VENOUS PARTIAL PRESSURE O2 61.4 mmHg (30.0-50.0); VENOUS PH 7.469 UNITS (7.330-7.430); VENOUS TOTAL CO2 31.9 MMOL/L (24.0-28.0)
[2024-08-22] MEDS ORDERED: DEXTROSE 50% 50ML SYRINGE As Ordered ONE (08:29)
[2024-08-22 08:32] LABS: BASO % 0.3 % (0.0-1.0); EOS # 0.3 10^3/uL (0.0-0.5); EOS % 2.4 % (0.0-3.0); HEMATOCRIT 37.5 % (36.0-47.0); HEMOGLOBIN 11.9 g/dl (12.0-15.5); LYMPH # 1.1 10^3/uL (1.5-5.0); LYMPH % 8.9 % (24.0-44.0); MEAN CORPUSCULAR HEMOGLOBIN 30.7 pg (27.0-33.0); MEAN CORPUSCULAR HGB CONC 31.7 g/dl (32.0-36.5); MEAN CORPUSCULAR VOLUME 96.9 fl (80.0-96.0); MONO # 0.9 10^3/uL (0.0-0.8); MONO % 7.4 % (2.0-8.0); NEUTROPHILS # 9.7 10^3/uL (1.5-8.5); PLATELET COUNT, AUTOMATED 224 10^3/uL (150-450); RED BLOOD COUNT 3.87 10^6/uL (4.00-5.40); WHITE BLOOD COUNT 12.1 10^3/uL (4.0-10.0)
[2024-08-22] MEDS: DEXTROSE 50% 50ML SYRINGE IV STA ×2 (08:38→14:44)
[2024-08-22 08:56] LABS: SALICYLATE LEVEL < 3.0 MG/DL (<30)
[2024-08-22 08:57] LABS: CPK CREATINE PHOSPHOKINASE 84 U/L (34-145)
[2024-08-22 09:12] LABS: KETONE, URINE AUTO RFX TRACE mg/dL (NEGATIVE); LEUKOCYTE ESTERASE UR AUTO RFX NEGATIVE (NEGATIVE); NITRITE, URINE AUTO RFX NEGATIVE (NEGATIVE); RBC, URINE AUTO RFX 1 /HPF (0-3); SQUAM EPITHELIAL CELL UR AURFX 14 /HPF (0-6); WBC, URINE AUTO RFX 1 /HPF (0-3)
[2024-08-22 09:25] LABS: ALBUMIN 3.1 G/DL (3.2-5.2); ALKALINE PHOSPHATASE 52 U/L (35-104); ALT/SGPT 19 U/L (7.0-40); AST/SGOT 27 U/L (<34); BILIRUBIN,DIRECT 0.1 MG/DL (<0.4); BILIRUBIN,TOTAL 0.4 MG/DL (0.3-1.2); BLOOD UREA NITROGEN 28 MG/DL (9-23); CALCIUM LEVEL 9.3 MG/DL (8.5-10.1); CARBON DIOXIDE LEVEL 30 MMOL/L (20-31); CHLORIDE LEVEL 98 MMOL/L (98-107); CK-MB VALUE MASS 1.2 NG/ML (<3.6); CREATININE FOR GFR 5.21 MG/DL (0.55-1.30); ETHYL ALCOHOL (ETHANOL) 0.004 % (0.000-0.010); GLOMERULAR FILTRATION RATE 9.3 (>51); GLUCOSE, FASTING 60 MG/DL (60-100); MB/CK RELATIVE INDEX 1.42 (< OR =4); POTASSIUM SERUM 4.1 MMOL/L (3.5-5.1); SODIUM LEVEL 139 MMOL/L (136-145); THYROID STIMULATING HORMONE 1.969 uIU/ML (0.55-4.78); TOTAL PROTEIN 6.2 G/DL (5.7-8.2)
[2024-08-22 09:31] LABS: AMPHETAMINES LEVEL URINE NEGATIVE (NEGATIVE); BARBITURATES URINE NEGATIVE (NEGATIVE); BENZODIAZEPINES URINE NEGATIVE (NEGATIVE); CANNABINOIDS URINE NEGATIVE (NEGATIVE); COCAINE METABOLITE URINE NEGATIVE (NEGATIVE); METHADONE URINE NEGATIVE (NEGATIVE); OPIATES URINE NEGATIVE (NEGATIVE); PHENCYCLIDINE URINE NEGATIVE (NEGATIVE)
[2024-08-22] MEDS: LORazepam 1 MG TAB PO STA (09:40)
[2024-08-22] MEDS: LORazepam 2 MG/ML 1ML VIAL IV STA ×2 (10:24→11:53)
[2024-08-22] MEDS ORDERED: MED REC IN PROGRESS XX SCH (10:50)
[2024-08-22 11:03] LABS: C REACTIVE PROTEIN QUANTITATIV 9.39 MG/DL (<1.0)
[2024-08-22 11:10] LABS: ERYTHROCYTE SEDIMENTATION RATE 32 mm/hr (0-30); PROCALCITONIN 0.66 ng/ml
[2024-08-22] MEDS ORDERED: MELA5TAB58 PO (13:35)
[2024-08-22] MEDS ORDERED: OXYC1TAB23 PO (13:35)
[2024-08-22] MEDS ORDERED: LANT1000 PO (13:35)
[2024-08-22] MEDS ORDERED: VIMP100T PO (13:35)
[2024-08-22] MEDS: PIPERACILLIN/TAZOBACTAM SOD 4.5 GM in DEXTROSE 5% (D5W) ADV/MINI-BAG 50 ML IV ONE (14:10)
[2024-08-22] MEDS: CEFEPIME HCL 2 GM in DEXTROSE 5% (D5W) ADV/MINI-BAG 50 ML IV ONE (14:34)
[2024-08-22] MEDS: D10W 1,000 ML IV SCH ×2 (14:45→18:05)
[2024-08-22] MEDS: ACETAMINOPHEN *IV* 1,000 MG in IV 1 EA IV ONE (15:16)
[2024-08-22] MEDS ORDERED: PREG25CA PO (15:17)
[2024-08-22] MEDS ORDERED: HOME MED LIST COMPLETE! XX SCH (15:20)
[2024-08-22] MEDS ORDERED: PIPERACILLIN/TAZOBACTAM SOD 3.375 GM in DEXTROSE 5% (D5W) ADV/MINI-BAG 50 ML IV SCH (15:45)
[2024-08-22] MEDS ORDERED: VANCOMYCIN HCL 1,000 MG, VIAL MATE ADAPTER 1 EACH in NS 250 ML IV SCH (16:15)
[2024-08-22] MEDS: VANCOMYCIN HCL 1,250 MG, VIAL MATE ADAPTER 1 EACH in NS 250 ML IV ONE (16:16)
[2024-08-22] MEDS ORDERED: ALBUTEROL SULFATE 2.5MG/0.5ML INH NEB SOLN NEB PRN (17:05)
[2024-08-22] MEDS: PANTOPRAZOLE 40MG VIAL IV SCH (18:11)
[2024-08-22] MEDS: NICOTINE 14 MG/24 HR TRANSDERMAL TD SCH (18:11)
[2024-08-22 18:51] LABS: INR 1.02; PARTIAL THROMBOPLASTIN TIME 26.7 SECONDS (24.8-34.2); PROTHROMBIN TIME 13.7 SECONDS (12.5-14.5)
[2024-08-22] MEDS: MEROPENEM INJ 1 GM in IV 1 EA IV SCH (19:00)
[2024-08-22] MEDS: hydrALAZINE 20MG/ML 1ML VIAL IV PRN (19:51)
[2024-08-22] MEDS: LACOSAMIDE 10MG/ML 20ML VIAL (VIMPAT) IV SCH (22:07)
[2024-08-22] MEDS: cloNIDine HCL 0.1 MG/24 HR PATCH TOP SCH (22:50)
[2024-08-22] MEDS: LABETALOL 100MG/20ML VIAL IV STA (23:22)
[2024-08-23] VITALS (41 sets, daily range): BP systolic 140–212; BP diastolic 81–120; TEMP 98.4–98.8; O2SAT 91–97
[2024-08-23] MEDS: ACETAMINOPHEN 650MG SUPP PR PRN (03:04)
[2024-08-23] MEDS ORDERED: HEPARIN 1,000UNITS/ML 10ML VIAL (FOR RADIOLOGY & DIALYSIS ONLY) IV PRN (06:15)
[2024-08-23] MEDS ORDERED: SODIUM CHLORIDE 0.9% 1000 ML IV PRN (06:15)
[2024-08-23 06:43] LABS: HEMATOCRIT 34.5 % (36.0-47.0); HEMOGLOBIN 10.9 g/dl (12.0-15.5); MEAN CORPUSCULAR HEMOGLOBIN 30.5 pg (27.0-33.0); MEAN CORPUSCULAR HGB CONC 31.6 g/dl (32.0-36.5); MEAN CORPUSCULAR VOLUME 96.6 fl (80.0-96.0); PLATELET COUNT, AUTOMATED 175 10^3/uL (150-450); RED BLOOD COUNT 3.57 10^6/uL (4.00-5.40); WHITE BLOOD COUNT 10.6 10^3/uL (4.0-10.0)
[2024-08-23 07:23] LABS: ALBUMIN 2.6 G/DL (3.2-5.2); BILIRUBIN,TOTAL 0.3 MG/DL (0.3-1.2); CALCIUM LEVEL 8.9 MG/DL (8.5-10.1); CREATININE FOR GFR 6.53 MG/DL (0.55-1.30); GLOMERULAR FILTRATION RATE 7.1 (>51); POTASSIUM SERUM 4.1 MMOL/L (3.5-5.1); TOTAL PROTEIN 5.4 G/DL (5.7-8.2)
[2024-08-23] MEDS: HEPARIN SOD (PORCINE) 5000UNITS/ML 1ML VIAL/SYRINGE SC SCH (08:37)
[2024-08-23 09:46] LABS: VANCOMYCIN RANDOM 24.7 UG/ML
[2024-08-23] MEDS: HEPARIN 1,000UNITS/ML 10ML VIAL (FOR RADIOLOGY & DIALYSIS ONLY) XX SCH (09:59)
[2024-08-23] MEDS ORDERED: ONDANSETRON 4MG 2ML VIAL IV SCH (10:45)
[2024-08-23] MEDS: ONDANSETRON 4MG 2ML VIAL IV PRN (11:06)
[2024-08-23] MEDS: hydrALAZINE 20MG/ML 1ML VIAL IV SCH (11:07)
[2024-08-23] MEDS: cloNIDine HCL 0.2 MG/24 HR PATCH TOP SCH (11:08)
[2024-08-23] MEDS: niCARdipine IV 40 MG in IV 1 EA IV SCH (14:56)
[2024-08-23] MEDS ORDERED: VANCOMYCIN HCL 1,000 MG, VIAL MATE ADAPTER 1 EACH in NS 250 ML IV SCH (16:00)
[2024-08-24] VITALS (73 sets, daily range): BP systolic 121–206; BP diastolic 76–128; TEMP 97.9–99.5; O2SAT 93–96
[2024-08-24 05:03] LABS: HEMATOCRIT 35.6 % (36.0-47.0); HEMOGLOBIN 11.2 g/dl (12.0-15.5); MEAN CORPUSCULAR HEMOGLOBIN 30.1 pg (27.0-33.0); MEAN CORPUSCULAR HGB CONC 31.5 g/dl (32.0-36.5); MEAN CORPUSCULAR VOLUME 95.7 fl (80.0-96.0); PLATELET COUNT, AUTOMATED 164 10^3/uL (150-450); RED BLOOD COUNT 3.72 10^6/uL (4.00-5.40); WHITE BLOOD COUNT 8.7 10^3/uL (4.0-10.0)
[2024-08-24 05:20] LABS: VANCOMYCIN RANDOM 16.1 UG/ML
[2024-08-24 05:31] LABS: ALBUMIN 2.6 G/DL (3.2-5.2); BILIRUBIN,TOTAL 0.2 MG/DL (0.3-1.2); CALCIUM LEVEL 8.9 MG/DL (8.5-10.1); CREATININE FOR GFR 4.72 MG/DL (0.55-1.30); GLOMERULAR FILTRATION RATE 10.4 (>51); MAGNESIUM LEVEL 2.1 MG/DL (1.8-2.4); TOTAL PROTEIN 5.9 G/DL (5.7-8.2)
[2024-08-24] MEDS: VANCOMYCIN HCL 500 MG in DEXTROSE 5% (D5W) MINI-BAG PLU 100 ML IV ONE (11:04)
[2024-08-24] MEDS: hydrALAZINE 20MG/ML 1ML VIAL IV SCH (13:09)
[2024-08-24] MEDS: niCARdipine IV 40 MG in IV 1 EA IV SCH (17:50)
[2024-08-25] VITALS (70 sets, daily range): BP systolic 130–184; BP diastolic 77–107; TEMP 96.7–99; O2SAT 94–100
[2024-08-25 05:31] LABS: HEMATOCRIT 37.2 % (36.0-47.0); HEMOGLOBIN 11.8 g/dl (12.0-15.5); MEAN CORPUSCULAR HEMOGLOBIN 29.8 pg (27.0-33.0); MEAN CORPUSCULAR HGB CONC 31.7 g/dl (32.0-36.5); MEAN CORPUSCULAR VOLUME 93.9 fl (80.0-96.0); PLATELET COUNT, AUTOMATED 170 10^3/uL (150-450); RED BLOOD COUNT 3.96 10^6/uL (4.00-5.40); WHITE BLOOD COUNT 7.4 10^3/uL (4.0-10.0)
[2024-08-25 05:57] LABS: VANCOMYCIN RANDOM 23.3 UG/ML
[2024-08-25 05:58] LABS: ALBUMIN 2.7 G/DL (3.2-5.2); BILIRUBIN,TOTAL 0.2 MG/DL (0.3-1.2); CALCIUM LEVEL 8.8 MG/DL (8.5-10.1); CREATININE FOR GFR 6.19 MG/DL (0.55-1.30); GLOMERULAR FILTRATION RATE 7.6 (>51); POTASSIUM SERUM 4.3 MMOL/L (3.5-5.1); TOTAL PROTEIN 5.8 G/DL (5.7-8.2)
[2024-08-25] MEDS ORDERED: HEPARIN 1,000UNITS/ML 10ML VIAL (FOR RADIOLOGY & DIALYSIS ONLY) IV PRN (06:00)
[2024-08-25] MEDS ORDERED: SODIUM CHLORIDE 0.9% 1000 ML IV PRN (06:00)
[2024-08-25 11:20] LABS: FREE T4 1.89 NG/DL (0.89-1.76)
[2024-08-25 11:21] LABS: THYROID STIMULATING HORMONE 2.737 uIU/ML (0.55-4.78)
[2024-08-25 12:35] LABS: COMPLEMENT C3 107.4 MG/DL (90.0-170.0); COMPLEMENT C4 24.7 MG/DL (12-36)
[2024-08-25] MEDS: MORPHINE 2 MG/ML 1ML VIAL IV ONE (15:13)
[2024-08-25] MEDS: HEPARIN 1,000UNITS/ML 10ML VIAL (FOR RADIOLOGY & DIALYSIS ONLY) XX SCH (15:33)
[2024-08-25] MEDS: VANCOMYCIN HCL 500 MG in DEXTROSE 5% (D5W) MINI-BAG PLU 100 ML IV SCH (16:36)
[2024-08-25 17:26] LABS: C REACTIVE PROTEIN QUANTITATIV 3.52 MG/DL (<1.0)
[2024-08-26] VITALS (38 sets, daily range): BP systolic 129–185; BP diastolic 65–117; TEMP 97.5–98.8; O2SAT 94–99
[2024-08-26] MEDS: MORPHINE 2 MG/ML 1ML VIAL IV ONE (01:58)
[2024-08-26 06:04] LABS: HEMATOCRIT 33.5 % (36.0-47.0); HEMOGLOBIN 10.9 g/dl (12.0-15.5); MEAN CORPUSCULAR HEMOGLOBIN 29.8 pg (27.0-33.0); MEAN CORPUSCULAR HGB CONC 32.5 g/dl (32.0-36.5); MEAN CORPUSCULAR VOLUME 91.5 fl (80.0-96.0); PLATELET COUNT, AUTOMATED 190 10^3/uL (150-450); RED BLOOD COUNT 3.66 10^6/uL (4.00-5.40); WHITE BLOOD COUNT 6.2 10^3/uL (4.0-10.0)
[2024-08-26 06:39] LABS: ALBUMIN 2.7 G/DL (3.2-5.2); BILIRUBIN,TOTAL 0.2 MG/DL (0.3-1.2); CALCIUM LEVEL 8.6 MG/DL (8.5-10.1); CREATININE FOR GFR 4.31 MG/DL (0.55-1.30); GLOMERULAR FILTRATION RATE 11.5 (>51); POTASSIUM SERUM 3.7 MMOL/L (3.5-5.1); TOTAL PROTEIN 5.7 G/DL (5.7-8.2)
[2024-08-26 07:59] LABS: VANCOMYCIN RANDOM 23.7 UG/ML
[2024-08-26] MEDS: **hydrALAZINE** 50 MG TAB PO SCH (08:49)
[2024-08-26] MEDS: CARVedilol 12.5 MG TAB PO SCH (08:49)
[2024-08-26] MEDS: LOSARTAN 50MG TABLET PO SCH (08:49)
[2024-08-26] MEDS: PERCOCET 5MG/325MG TAB PO PRN (08:57)
[2024-08-26] MEDS ORDERED: LORazepam 2 MG TAB PO PRN (09:30)
[2024-08-26 11:51] LABS: CRYOGLOBULINS NEGATIVE (NEGATIVE)
[2024-08-26 15:42] LABS: ALDOLASE 7.1 U/L (< OR = 8.1)
[2024-08-26] MEDS: ASPIRIN 81MG ENTERIC TABLET PO SCH (18:10)
[2024-08-26] MEDS ORDERED: cloNIDine 0.1MG TABLET PO SCH (21:00)
[2024-08-26] MEDS: ATORVASTATIN 20 MG TAB PO SCH (21:01)
[2024-08-27] VITALS (8 sets, daily range): BP systolic 171–187; BP diastolic 96–114; TEMP 97.9–99; O2SAT 96–99
[2024-08-27] MEDS: TERAZOSIN 1 MG CAP PO SCH (00:21)
[2024-08-27] MEDS ORDERED: SODIUM CHLORIDE 0.9% 1000 ML IV PRN (06:00)
[2024-08-27] MEDS ORDERED: HEPARIN 1,000UNITS/ML 10ML VIAL (FOR RADIOLOGY & DIALYSIS ONLY) IV PRN (06:00)
[2024-08-27 07:21] LABS: BASO % 0.4 % (0.0-1.0); EOS # 0.5 10^3/uL (0.0-0.5); EOS % 6.7 % (0.0-3.0); HEMATOCRIT 34.9 % (36.0-47.0); LYMPH # 0.8 10^3/uL (1.5-5.0); LYMPH % 12.1 % (24.0-44.0); MEAN CORPUSCULAR HEMOGLOBIN 29.6 pg (27.0-33.0); MEAN CORPUSCULAR HGB CONC 31.5 g/dl (32.0-36.5); MEAN CORPUSCULAR VOLUME 94.1 fl (80.0-96.0); MONO # 0.6 10^3/uL (0.0-0.8); MONO % 8.3 % (2.0-8.0); NEUTROPHILS # 4.8 10^3/uL (1.5-8.5); NEUTROPHILS % 71.2 % (36.0-66.0); PLATELET COUNT, AUTOMATED 173 10^3/uL (150-450); RED BLOOD COUNT 3.71 10^6/uL (4.00-5.40); WHITE BLOOD COUNT 6.8 10^3/uL (4.0-10.0)
[2024-08-27 08:06] LABS: ALBUMIN 2.6 G/DL (3.2-5.2); BILIRUBIN,TOTAL 0.2 MG/DL (0.3-1.2); CALCIUM LEVEL 8.6 MG/DL (8.5-10.1); CREATININE FOR GFR 5.65 MG/DL (0.55-1.30); GLOMERULAR FILTRATION RATE 8.4 (>51); POTASSIUM SERUM 4.3 MMOL/L (3.5-5.1); TOTAL PROTEIN 5.5 G/DL (5.7-8.2)
[2024-08-27] MEDS: LORazepam 2 MG/ML 1ML VIAL IV ONE (10:27)
[2024-08-27] MEDS ORDERED: PROHANCE 279.3MG/ML 5ML VIAL As Ordered ONE (11:27)
[2024-08-27] MEDS: HEPARIN 1,000UNITS/ML 10ML VIAL (FOR RADIOLOGY & DIALYSIS ONLY) XX SCH (13:40)
[2024-08-27 15:07] LABS: ANTI CENTROMERE ANTIBODY <1.0 NEG AI (<1.0 NEG); ANTI SCLERODERMA ANTIBODIES <1.0 NEG AI (<1.0 NEG); SSA SJOGRENS A <1.0 NEG AI (<1.0 NEG); SSB SJOGRENS B <1.0 NEG AI (<1.0 NEG)
[2024-08-27 15:21] LABS: ANTI-MITOCHONDRIAL ANTIBODY NEGATIVE (NEGATIVE)
[2024-08-27 17:47] LABS: ANA SCREEN, IFA NEGATIVE (NEGATIVE)
[2024-08-27] MEDS: HYDROMORPHONE HCL 0.5 MG/ 0.5 ML SYRINGE IV PRN (17:56)
[2024-08-27] MEDS: PREGABALIN 25 MG CAP (LYRICA) PO SCH (19:19)
[2024-08-28] VITALS (22 sets, daily range): BP systolic 106–198; BP diastolic 62–124; TEMP 97.9–99; O2SAT 94–99
[2024-08-28 04:55] LABS: BASO % 0.4 % (0.0-1.0); EOS # 0.5 10^3/uL (0.0-0.5); EOS % 8.5 % (0.0-3.0); HEMATOCRIT 31.7 % (36.0-47.0); HEMOGLOBIN 10.2 g/dl (12.0-15.5); LYMPH # 1.5 10^3/uL (1.5-5.0); LYMPH % 26.7 % (24.0-44.0); MEAN CORPUSCULAR HGB CONC 32.2 g/dl (32.0-36.5); MEAN CORPUSCULAR VOLUME 93.2 fl (80.0-96.0); MONO # 0.7 10^3/uL (0.0-0.8); MONO % 11.7 % (2.0-8.0); NEUTROPHILS # 2.9 10^3/uL (1.5-8.5); NEUTROPHILS % 51.8 % (36.0-66.0); PLATELET COUNT, AUTOMATED 191 10^3/uL (150-450); WHITE BLOOD COUNT 5.5 10^3/uL (4.0-10.0)
[2024-08-28 05:34] LABS: ALBUMIN 2.5 G/DL (3.2-5.2); BILIRUBIN,TOTAL 0.2 MG/DL (0.3-1.2); CALCIUM LEVEL 9.1 MG/DL (8.5-10.1); CREATININE FOR GFR 4.28 MG/DL (0.55-1.30); GLOMERULAR FILTRATION RATE 11.6 (>51); POTASSIUM SERUM 4.4 MMOL/L (3.5-5.1); TOTAL PROTEIN 5.3 G/DL (5.7-8.2)
[2024-08-28] MEDS: LIDOCAINE 5% (LIDODERM) PATCH TD SCH (08:15)
[2024-08-28 10:48] LABS: ANTI-SMOOTH MUSCLE ANTIBODY < 20 U (<20)
[2024-08-28 16:32] LABS: ANTI-GLOMERULAR BASEMENT MEMB < 1.0 AI (<1.0)
[2024-08-28] MEDS: SUCROFERRIC OXYHYDROXIDE 500MG CHEW TAB (VELPHORO) PO SCH (17:31)
[2024-08-28 18:16] LABS: C REACTIVE PROTEIN QUANTITATIV 1.87 MG/DL (<1.0)
[2024-08-28] MEDS: MIRALAX *UNIT DOSE* 17GM PACKET PO PRN (20:41)
[2024-08-28] MEDS: SENNA 8.6 MG TAB (SENOKOT) PO PRN (20:42)
[2024-08-29] VITALS (24 sets, daily range): BP systolic 160–200; BP diastolic 72–110; TEMP 97.7–98.6; O2SAT 94–99
[2024-08-29] MEDS ORDERED: HEPARIN 1,000UNITS/ML 10ML VIAL (FOR RADIOLOGY & DIALYSIS ONLY) IV PRN (06:00)
[2024-08-29] MEDS ORDERED: SODIUM CHLORIDE 0.9% 1000 ML IV PRN (06:00)
[2024-08-29 06:08] LABS: BASO % 0.5 % (0.0-1.0); EOS # 0.4 10^3/uL (0.0-0.5); EOS % 6.6 % (0.0-3.0); HEMATOCRIT 33.3 % (36.0-47.0); HEMOGLOBIN 10.5 g/dl (12.0-15.5); LYMPH # 1.2 10^3/uL (1.5-5.0); LYMPH % 18.9 % (24.0-44.0); MEAN CORPUSCULAR HEMOGLOBIN 29.4 pg (27.0-33.0); MEAN CORPUSCULAR HGB CONC 31.5 g/dl (32.0-36.5); MEAN CORPUSCULAR VOLUME 93.3 fl (80.0-96.0); MONO # 0.7 10^3/uL (0.0-0.8); NEUTROPHILS # 4.1 10^3/uL (1.5-8.5); NEUTROPHILS % 62.9 % (36.0-66.0); PLATELET COUNT, AUTOMATED 196 10^3/uL (150-450); RED BLOOD COUNT 3.57 10^6/uL (4.00-5.40); WHITE BLOOD COUNT 6.5 10^3/uL (4.0-10.0)
[2024-08-29 06:38] LABS: ALBUMIN 2.5 G/DL (3.2-5.2); BILIRUBIN,TOTAL 0.2 MG/DL (0.3-1.2); CALCIUM LEVEL 8.8 MG/DL (8.5-10.1); CREATININE FOR GFR 5.75 MG/DL (0.55-1.30); GLOMERULAR FILTRATION RATE 8.3 (>51); POTASSIUM SERUM 4.5 MMOL/L (3.5-5.1); TOTAL PROTEIN 5.3 G/DL (5.7-8.2)
[2024-08-29] MEDS: LORazepam 1 MG TAB PO STA (08:14)
[2024-08-29] MEDS: HEPARIN 1,000UNITS/ML 10ML VIAL (FOR RADIOLOGY & DIALYSIS ONLY) XX SCH (10:56)
[2024-08-29] MEDS: **hydrALAZINE HCL** 25 MG TAB PO SCH (12:31)
[2024-08-29] MEDS: HYDROMORPHONE HCL 0.5 MG/ 0.5 ML SYRINGE IV PRN (13:00)
[2024-08-29 17:52] LABS: ANTI-HISTONE ANTIBODIES < 1.0 U (<1.0)
[2024-08-29] MEDS: PREGABALIN 50 MG CAP (LYRICA) PO SCH (20:25)
[2024-08-30] VITALS (20 sets, daily range): BP systolic 153–195; BP diastolic 64–111; TEMP 97.6–99.2; O2SAT 5–99
[2024-08-30] MEDS: BISACODYL 10MG SUPP PR ONE ×2 (06:35→14:28)
[2024-08-30 07:14] LABS: BASO % 0.5 % (0.0-1.0); EOS # 0.4 10^3/uL (0.0-0.5); EOS % 6.2 % (0.0-3.0); HEMATOCRIT 31.5 % (36.0-47.0); HEMOGLOBIN 10.1 g/dl (12.0-15.5); LYMPH # 1.3 10^3/uL (1.5-5.0); LYMPH % 21.2 % (24.0-44.0); MEAN CORPUSCULAR HEMOGLOBIN 30.2 pg (27.0-33.0); MEAN CORPUSCULAR HGB CONC 32.1 g/dl (32.0-36.5); MEAN CORPUSCULAR VOLUME 94.3 fl (80.0-96.0); MONO # 0.6 10^3/uL (0.0-0.8); MONO % 8.7 % (2.0-8.0); NEUTROPHILS % 62.6 % (36.0-66.0); PLATELET COUNT, AUTOMATED 192 10^3/uL (150-450); RED BLOOD COUNT 3.34 10^6/uL (4.00-5.40); WHITE BLOOD COUNT 6.3 10^3/uL (4.0-10.0)
[2024-08-30 07:42] LABS: CALCIUM LEVEL 8.8 MG/DL (8.5-10.1); CREATININE FOR GFR 4.07 MG/DL (0.55-1.30); GLOMERULAR FILTRATION RATE 12.3 (>51); POTASSIUM SERUM 4.4 MMOL/L (3.5-5.1)
[2024-08-30] MEDS: **hydrALAZINE** 50 MG TAB PO SCH (08:45)
[2024-08-30] MEDS: TERAZOSIN 1 MG CAP PO SCH (12:13)
[2024-08-30 14:47] LABS: ANTI DS-DNA AB NEGATIVE (NEGATIVE)
[2024-08-30] MEDS: CARVedilol 12.5 MG TAB PO SCH (20:08)
[2024-08-31] VITALS (10 sets, daily range): BP systolic 161–183; BP diastolic 86–100; TEMP 97.8–98.4; O2SAT 93–98
[2024-08-31 07:25] LABS: ALBUMIN 2.6 G/DL (3.2-5.2); BILIRUBIN,TOTAL 0.2 MG/DL (0.3-1.2); CALCIUM LEVEL 8.9 MG/DL (8.5-10.1); CREATININE FOR GFR 5.48 MG/DL (0.55-1.30); GLOMERULAR FILTRATION RATE 8.7 (>51); MAGNESIUM LEVEL 2.4 MG/DL (1.8-2.4); POTASSIUM SERUM 4.6 MMOL/L (3.5-5.1); TOTAL PROTEIN 5.5 G/DL (5.7-8.2)
[2024-08-31] MEDS ORDERED: HYDR100T PO (11:09)
[2024-08-31] MEDS ORDERED: PERC10TA26 PO (11:09)
[2024-08-31] MEDS ORDERED: CARV12.5 PO (11:09)
[2024-08-31] MEDS ORDERED: CLON0.2T PO (11:09)
== END 2024-08-31 11:57 | disposition home or self-care (01) | DRG 871 ==
LOC: EDBD 06:34 → M ED 06:34 → M ED INP 17:46 → M PCU 08-23 12:13 → M ICU 08-23 14:35 → M PCU 08-28 12:13
PROVIDERS: ADMIT Internal Medicine; ATTEND Internal Medicine
PROC: B246ZZZ Ultrasonography of Right and Left Heart (ICD-10-PCS; principal; 2024-08-25)
PROC: 5A1D70Z Performance of Urinary Filtration, Intermittent, Less than 6 Hours Per Day (ICD-10-PCS; 2024-08-27)
DX: A41.9 Sepsis, unspecified organism (principal); N18.6 End stage renal disease; G93.6 Cerebral edema; G93.41 Metabolic encephalopathy; J18.9 Pneumonia, unspecified organism; I33.0 Acute and subacute infective endocarditis; I12.0 Hypertensive chronic kidney disease with stage 5 chronic kidney disease or end stage renal disease; Q61.3 Polycystic kidney, unspecified; I16.1 Hypertensive emergency; I35.0 Nonrheumatic aortic (valve) stenosis; D63.1 Anemia in chronic kidney disease; F17.200 Nicotine dependence, unspecified, uncomplicated; G40.909 Epilepsy, unspecified, not intractable, without status epilepticus; E78.5 Hyperlipidemia, unspecified; E16.2 Hypoglycemia, unspecified; N25.0 Renal osteodystrophy; Z99.2 Dependence on renal dialysis; Z86.73 Personal history of transient ischemic attack (TIA), and cerebral infarction without residual deficits; Z79.82 Long term (current) use of aspirin; Z79.891 Long term (current) use of opiate analgesic; Z79.899 Other long term (current) drug therapy; M54.9 Dorsalgia, unspecified

== ENCOUNTER 2024-09-19 15:52 | Inpatient (IN) | payer MEDICARE ==
[~2024-09-19] VITALS: Ht 157.5 cm; Wt 50.8 kg
[~2024-09-19 15:52] MED LIST changes: +CLON0.2T PO; +HYDR100T PO; +MELA5TAB58 PO; +OXYC1TAB23 PO; +PERC10TA26 PO; +PREG25CA PO; +VIMP100T PO
[2024-09-19] MEDS: **hydrALAZINE** 50 MG TAB PO ONE (18:18)
[2024-09-19] MEDS: LABETALOL 100MG/20ML VIAL IV ONE (18:19)
[2024-09-19 18:24] LABS: BASO % 0.6 % (0.0-1.0); EOS % 14.2 % (0.0-3.0); HEMATOCRIT 37.6 % (36.0-47.0); HEMOGLOBIN 11.9 g/dl (12.0-15.5); LYMPH # 1.4 10^3/uL (1.5-5.0); LYMPH % 20.1 % (24.0-44.0); MEAN CORPUSCULAR HEMOGLOBIN 29.4 pg (27.0-33.0); MEAN CORPUSCULAR HGB CONC 31.6 g/dl (32.0-36.5); MEAN CORPUSCULAR VOLUME 92.8 fl (80.0-96.0); MONO # 0.5 10^3/uL (0.0-0.8); MONO % 7.9 % (2.0-8.0); NEUTROPHILS # 3.9 10^3/uL (1.5-8.5); NEUTROPHILS % 56.6 % (36.0-66.0); PLATELET COUNT, AUTOMATED 222 10^3/uL (150-450); RED BLOOD COUNT 4.05 10^6/uL (4.00-5.40); WHITE BLOOD COUNT 6.8 10^3/uL (4.0-10.0)
[2024-09-19 18:37] LABS: INR 0.83; PARTIAL THROMBOPLASTIN TIME 25.7 SECONDS (24.8-34.2); PROTHROMBIN TIME 11.7 SECONDS (12.5-14.5)
[2024-09-19 18:42] LABS: ALBUMIN 3.4 G/DL (3.2-5.2); ALKALINE PHOSPHATASE 58 U/L (35-104); ALT/SGPT 14 U/L (7.0-40); AST/SGOT 20 U/L (<34); BILIRUBIN,DIRECT < 0.1 MG/DL (<0.4); BILIRUBIN,TOTAL 0.2 MG/DL (0.3-1.2); TOTAL PROTEIN 6.7 G/DL (5.7-8.2)
[2024-09-19 18:44] LABS: THYROID STIMULATING HORMONE 1.924 uIU/ML (0.55-4.78)
[2024-09-19 18:47] LABS: CK-MB VALUE MASS 2.1 NG/ML (<3.6); CREATININE FOR GFR 7.31 MG/DL (0.55-1.30); FREE T4 1.59 NG/DL (0.89-1.76); GLOMERULAR FILTRATION RATE 6.3 (>51); MB/CK RELATIVE INDEX 2.53 (< OR =4); POTASSIUM SERUM 5.3 MMOL/L (3.5-5.1); THYROID STIMULATING HORMONE 1.911 uIU/ML (0.55-4.78)
[2024-09-19] MEDS ORDERED: HYDR100T PO (19:35)
[2024-09-19] MEDS ORDERED: CLON0.2T PO (19:35)
[2024-09-19] MEDS ORDERED: HOME MED LIST COMPLETE! XX SCH (19:40)
[2024-09-19 20:35] LABS: CK-MB VALUE MASS 2.2 NG/ML (<3.6)
[2024-09-19] MEDS ORDERED: ACETAMINOPHEN 325 MG TAB PO PRN (20:35)
[2024-09-19] MEDS ORDERED: MOM 30ML SUSPENSION UDC PO PRN (20:35)
[2024-09-19] MEDS ORDERED: MAALOX 30 ML SUSP *UDC PO PRN (20:35)
[2024-09-19] MEDS ORDERED: NITROGLYCERIN 0.4MG SUBL TABLET SL PRN (20:35)
[2024-09-19 20:37] LABS: MB/CK RELATIVE INDEX 2.97 (< OR =4)
[2024-09-19] MEDS: **hydrALAZINE** 50 MG TAB PO SCH (22:51)
[2024-09-19] MEDS: DOCUSATE SODIUM 100MG CAPSULE PO SCH (22:51)
[2024-09-19] MEDS: CARVedilol 12.5 MG TAB PO SCH (22:52)
[2024-09-19] MEDS: cloNIDine 0.2 MG TAB PO SCH (22:52)
[2024-09-19] MEDS: ATORVASTATIN 20 MG TAB PO SCH (22:52)
[2024-09-19] MEDS: LACOSAMIDE 50 MG TAB (VIMPAT) PO SCH (22:52)
[2024-09-19] MEDS: GABAPENTIN 300 MG CAP PO SCH (22:52)
[2024-09-19] MEDS: TERAZOSIN 1 MG CAP PO SCH (22:56)
[2024-09-20] VITALS (15 sets, daily range): BP systolic 160–184; BP diastolic 84–108; TEMP 97.5–98.2; O2SAT 96–99
[2024-09-20 04:30] LABS: HEMATOCRIT 33.5 % (36.0-47.0); HEMOGLOBIN 10.5 g/dl (12.0-15.5); MEAN CORPUSCULAR HEMOGLOBIN 29.3 pg (27.0-33.0); MEAN CORPUSCULAR HGB CONC 31.3 g/dl (32.0-36.5); MEAN CORPUSCULAR VOLUME 93.6 fl (80.0-96.0); PLATELET COUNT, AUTOMATED 205 10^3/uL (150-450); RED BLOOD COUNT 3.58 10^6/uL (4.00-5.40); WHITE BLOOD COUNT 6.9 10^3/uL (4.0-10.0)
[2024-09-20 05:39] LABS: ALBUMIN 2.6 G/DL (3.2-5.2); ALKALINE PHOSPHATASE 44 U/L (35-104); ALT/SGPT 10 U/L (7.0-40); AST/SGOT 21 U/L (<34); BILIRUBIN,TOTAL < 0.2 MG/DL (0.3-1.2); BLOOD UREA NITROGEN 40 MG/DL (9-23); CALCIUM LEVEL 11.4 MG/DL (8.5-10.1); CARBON DIOXIDE LEVEL 32 MMOL/L (20-31); CHLORIDE LEVEL 103 MMOL/L (98-107); CREATININE FOR GFR 7.71 MG/DL (0.55-1.30); GLOMERULAR FILTRATION RATE 5.9 (>51); GLUCOSE, FASTING 108 MG/DL (60-100); MAGNESIUM LEVEL 2.6 MG/DL (1.8-2.4); POTASSIUM SERUM 5.3 MMOL/L (3.5-5.1); SODIUM LEVEL 143 MMOL/L (136-145); TOTAL PROTEIN 5.4 G/DL (5.7-8.2)
[2024-09-20] MEDS ORDERED: HEPARIN 1,000UNITS/ML 10ML VIAL (FOR RADIOLOGY & DIALYSIS ONLY) IV PRN (07:05)
[2024-09-20] MEDS ORDERED: SODIUM CHLORIDE 0.9% 1000 ML IV PRN (07:05)
[2024-09-20] MEDS ORDERED: hydrALAZINE 20MG/ML 1ML VIAL IV PRN (07:15)
[2024-09-20 07:37] LABS: PTH INTACT 27.4 PG/ML (18.5-88.0)
[2024-09-20 07:41] LABS: TOTAL 25(OH) VITAMIN D 106.1 NG/ML (20.0-100.0)
[2024-09-20] MEDS: LABETALOL 100MG/20ML VIAL IV ONE (07:50)
[2024-09-20] MEDS: SUCROFERRIC OXYHYDROXIDE 500MG CHEW TAB (VELPHORO) PO SCH (07:50)
[2024-09-20] MEDS: HEPARIN 1,000UNITS/ML 10ML VIAL (FOR RADIOLOGY & DIALYSIS ONLY) XX SCH (09:10)
[2024-09-20] MEDS: ASPIRIN 81MG ENTERIC TABLET PO SCH (12:43)
[2024-09-20] MEDS: LOSARTAN 50MG TABLET PO SCH (12:44)
[2024-09-20] MEDS: PERCOCET 5MG/325MG TAB PO PRN (12:45)
[2024-09-20] MEDS: MORPHINE 2 MG/ML 1ML VIAL IV ONE (13:36)
[2024-09-20] MEDS: LIDOCAINE 5% (LIDODERM) PATCH TD SCH (15:19)
[2024-09-20] MEDS: MORPHINE 2 MG/ML 1ML VIAL IV PRN (19:10)
[2024-09-20] MEDS: HEPARIN SOD (PORCINE) 5000UNITS/ML 1ML VIAL/SYRINGE SQ SCH (22:37)
[2024-09-21] VITALS (14 sets, daily range): BP systolic 160–170; BP diastolic 82–98; TEMP 97.8–98.7; O2SAT 94–99
[2024-09-21 06:15] LABS: HEMATOCRIT 34.5 % (36.0-47.0); HEMOGLOBIN 10.7 g/dl (12.0-15.5); MEAN CORPUSCULAR HEMOGLOBIN 29.4 pg (27.0-33.0); MEAN CORPUSCULAR VOLUME 94.8 fl (80.0-96.0); PLATELET COUNT, AUTOMATED 205 10^3/uL (150-450); RED BLOOD COUNT 3.64 10^6/uL (4.00-5.40); WHITE BLOOD COUNT 6.7 10^3/uL (4.0-10.0)
[2024-09-21 06:44] LABS: ALBUMIN 2.6 G/DL (3.2-5.2); BILIRUBIN,TOTAL 0.2 MG/DL (0.3-1.2); CALCIUM LEVEL 9.9 MG/DL (8.5-10.1); CREATININE FOR GFR 4.77 MG/DL (0.55-1.30); GLOMERULAR FILTRATION RATE 10.3 (>51); POTASSIUM SERUM 4.5 MMOL/L (3.5-5.1); TOTAL PROTEIN 5.3 G/DL (5.7-8.2)
[2024-09-21] MEDS: KETOROLAC 30 MG/ML 1ML VIAL IV SCH (10:49)
[2024-09-21] MEDS: methylPREDNISolone 125MG 2ML VIAL IV ONE (12:43)
[2024-09-21] MEDS: MORPHINE 4 MG/ML 1ML VIAL IV PRN (12:43)
[2024-09-21] MEDS: PANTOPRAZOLE 40MG TAB (PROTONIX) PO SCH (14:53)
[2024-09-21] MEDS: CARVedilol 12.5 MG TAB PO SCH (22:00)
[2024-09-22] VITALS (7 sets, daily range): BP systolic 131–176; BP diastolic 63–102; TEMP 98–98.5; O2SAT 93–98
[2024-09-22 06:44] LABS: HEMOGLOBIN 10.4 g/dl (12.0-15.5); MEAN CORPUSCULAR HEMOGLOBIN 29.5 pg (27.0-33.0); MEAN CORPUSCULAR HGB CONC 31.5 g/dl (32.0-36.5); MEAN CORPUSCULAR VOLUME 93.5 fl (80.0-96.0); PLATELET COUNT, AUTOMATED 197 10^3/uL (150-450); RED BLOOD COUNT 3.53 10^6/uL (4.00-5.40); WHITE BLOOD COUNT 6.9 10^3/uL (4.0-10.0)
[2024-09-22 07:15] LABS: ALBUMIN 2.7 G/DL (3.2-5.2); ALKALINE PHOSPHATASE 49 U/L (35-104); ALT/SGPT 9 U/L (7.0-40); AST/SGOT 13 U/L (<34); BILIRUBIN,TOTAL < 0.2 MG/DL (0.3-1.2); BLOOD UREA NITROGEN 31 MG/DL (9-23); CALCIUM LEVEL 10.4 MG/DL (8.5-10.1); CARBON DIOXIDE LEVEL 26 MMOL/L (20-31); CHLORIDE LEVEL 104 MMOL/L (98-107); CREATININE FOR GFR 6.16 MG/DL (0.55-1.30); GLOMERULAR FILTRATION RATE 7.6 (>51); GLUCOSE, FASTING 113 MG/DL (60-100); POTASSIUM SERUM 5.1 MMOL/L (3.5-5.1); SODIUM LEVEL 141 MMOL/L (136-145); TOTAL PROTEIN 5.7 G/DL (5.7-8.2)
[2024-09-22] MEDS ORDERED: CALCITRIOL 0.25 MCG CAP (S0169) PO SCH (09:00)
[2024-09-22] MEDS: methylPREDNISolone 40MG 1ML VIAL IV ONE (11:36)
[2024-09-22] MEDS ORDERED: MORPHINE 4 MG/ML 1ML VIAL IV PRN (13:10)
[2024-09-22] MEDS ORDERED: ISOVUE-370 76% 100ML VIAL As Ordered ONE (13:15)
[2024-09-22 14:11] LABS: C REACTIVE PROTEIN QUANTITATIV 1.17 MG/DL (<1.0)
[2024-09-22] MEDS: MORPHINE 2 MG/ML 1ML VIAL IV PRN (14:49)
[2024-09-23] MEDS: ONDANSETRON 4MG ORAL DISINTEGRATING TAB PO ONE (00:07)
[2024-09-23 03:07] LABS: T P ELECTROPHORESIS SO 5.3 g/dL (6.1-8.1)
[2024-09-23 04:51] VITALS: BP 180/80; TEMP 97.6; O2SAT 93
[2024-09-23] MEDS ORDERED: HEPARIN 1,000UNITS/ML 10ML VIAL (FOR RADIOLOGY & DIALYSIS ONLY) IV PRN (06:45)
[2024-09-23] MEDS ORDERED: SODIUM CHLORIDE 0.9% 1000 ML IV PRN (06:45)
[2024-09-23 07:07] LABS: HEMATOCRIT 34.5 % (36.0-47.0); HEMOGLOBIN 10.6 g/dl (12.0-15.5); MEAN CORPUSCULAR HGB CONC 30.7 g/dl (32.0-36.5); MEAN CORPUSCULAR VOLUME 94.5 fl (80.0-96.0); PLATELET COUNT, AUTOMATED 203 10^3/uL (150-450); RED BLOOD COUNT 3.65 10^6/uL (4.00-5.40); WHITE BLOOD COUNT 7.7 10^3/uL (4.0-10.0)
[2024-09-23 07:30] VITALS: BP 130/86; TEMP 98.7; O2SAT 95
[2024-09-23 07:45] LABS: ALBUMIN 2.8 G/DL (3.2-5.2); ALKALINE PHOSPHATASE 47 U/L (35-104); ALT/SGPT 9 U/L (7.0-40); AST/SGOT 12 U/L (<34); BILIRUBIN,TOTAL < 0.2 MG/DL (0.3-1.2); BLOOD UREA NITROGEN 48 MG/DL (9-23); CALCIUM LEVEL 10.4 MG/DL (8.5-10.1); CARBON DIOXIDE LEVEL 25 MMOL/L (20-31); CHLORIDE LEVEL 105 MMOL/L (98-107); CREATININE FOR GFR 7.28 MG/DL (0.55-1.30); GLOMERULAR FILTRATION RATE 6.3 (>51); GLUCOSE, FASTING 87 MG/DL (60-100); POTASSIUM SERUM 5.5 MMOL/L (3.5-5.1); SODIUM LEVEL 140 MMOL/L (136-145); TOTAL PROTEIN 5.8 G/DL (5.7-8.2)
[2024-09-23] MEDS: predniSONE 20 MG TAB PO SCH (09:26)
[2024-09-23] MEDS: HEPARIN 1,000UNITS/ML 10ML VIAL (FOR RADIOLOGY & DIALYSIS ONLY) XX SCH (10:07)
[2024-09-23 14:21] VITALS: BP 165/85; TEMP 98.8; O2SAT 98
[2024-09-23 16:46] VITALS: BP 140/90; TEMP 97.9; O2SAT 96
[2024-09-23 19:39] VITALS: BP 186/82; TEMP 97.8; O2SAT 98
[2024-09-23] MEDS: CALCIUM CARBONATE 500 MG CHEW U/D PO ONE (23:06)
[2024-09-23 23:45] VITALS: BP 160/82; TEMP 97.4; O2SAT 98
[2024-09-24 04:12] VITALS: BP 158/92; TEMP 96.9; O2SAT 97
[2024-09-24 07:18] LABS: HEMATOCRIT 34.2 % (36.0-47.0); HEMOGLOBIN 10.6 g/dl (12.0-15.5); MEAN CORPUSCULAR VOLUME 93.4 fl (80.0-96.0); PLATELET COUNT, AUTOMATED 200 10^3/uL (150-450); RED BLOOD COUNT 3.66 10^6/uL (4.00-5.40); WHITE BLOOD COUNT 7.7 10^3/uL (4.0-10.0)
[2024-09-24 07:35] LABS: ERYTHROCYTE SEDIMENTATION RATE 2 mm/hr (0-30)
[2024-09-24 07:46] LABS: COMPLEMENT C3 96.5 MG/DL (90.0-170.0); COMPLEMENT C4 20.9 MG/DL (12-36)
[2024-09-24 07:50] LABS: ALBUMIN 2.9 G/DL (3.2-5.2); ALKALINE PHOSPHATASE 45 U/L (35-104); ALT/SGPT 14 U/L (7.0-40); AST/SGOT 15 U/L (<34); BILIRUBIN,TOTAL < 0.2 MG/DL (0.3-1.2); BLOOD UREA NITROGEN 29 MG/DL (9-23); CALCIUM LEVEL 9.9 MG/DL (8.5-10.1); CARBON DIOXIDE LEVEL 27 MMOL/L (20-31); CHLORIDE LEVEL 103 MMOL/L (98-107); CREATININE FOR GFR 4.45 MG/DL (0.55-1.30); GLOMERULAR FILTRATION RATE 11.1 (>51); GLUCOSE, FASTING 72 MG/DL (60-100); POTASSIUM SERUM 4.3 MMOL/L (3.5-5.1); SODIUM LEVEL 140 MMOL/L (136-145); TOTAL PROTEIN 5.9 G/DL (5.7-8.2)
[2024-09-24 08:00] VITALS: BP 162/90; TEMP 98.4; O2SAT 96
[2024-09-24 09:17] VITALS: BP 162/90
[2024-09-24] MEDS: (RENVELA) SEVELAMER **CARBONate** 800 MG TAB PO SCH (09:18)
[2024-09-24 12:30] VITALS: BP 170/82; TEMP 99.1; O2SAT 96
[2024-09-24] MEDS ORDERED: MORP1SOL4 PO (13:32)
[2024-09-24] MEDS ORDERED: ACET32TAB PO (13:32)
[2024-09-24] MEDS ORDERED: CARV25TA PO (13:32)
[2024-09-24] MEDS ORDERED: PRED20TA PO (13:32)
[2024-09-24] MEDS ORDERED: COLA100C5 PO (13:32)
[2024-09-24] MEDS ORDERED: PANT40TA29 PO (13:32)
[2024-09-24 13:46] LABS: ALBUMIN SPEP 3.2 g/dL (3.8-4.8); ALPHA-1-GLOBULINS SO 0.3 g/dL (0.2-0.3); ALPHA-2-GLOBULINS SO 0.5 g/dL (0.5-0.9); BETA 2 GLOBULIN 0.3 g/dL (0.2-0.5); BETA-GLOBULIN SO 0.2 g/dL (0.4-0.6); GAMMA GLOBULINS SO 0.8 g/dL (0.8-1.7)
[2024-09-25 12:57] LABS: ANA SCREEN, IFA POSITIVE (NEGATIVE); ANA TITER 1:40 titer (<1:40)
[2024-09-25 20:52] LABS: 25-HYDROXY VITAMIN D2 13 pg/mL; 25-HYDROXY VITAMIN D3 17 pg/mL; VITAMIN D 1 25 DIHYDROXY 30 pg/mL (18-72)
== END 2024-09-24 15:06 | disposition home or self-care (01) | DRG 304 ==
LOC: M ED 15:52 → M ED INP 15:53 → OBSVTOIN 19:12 → M PCU 09-20 04:26
PROVIDERS: ADMIT Student in an Organized Health Care Education/Training Program; ATTEND Internal Medicine
DX: I16.9 Hypertensive crisis, unspecified (principal); N18.6 End stage renal disease; E87.3 Alkalosis; Q61.3 Polycystic kidney, unspecified; R18.8 Other ascites; I15.0 Renovascular hypertension; I1A.0 Resistant hypertension; E87.5 Hyperkalemia; I35.0 Nonrheumatic aortic (valve) stenosis; D63.1 Anemia in chronic kidney disease; M54.10 Radiculopathy, site unspecified; M54.50 Low back pain, unspecified; E83.52 Hypercalcemia; E78.5 Hyperlipidemia, unspecified; R53.1 Weakness; G40.909 Epilepsy, unspecified, not intractable, without status epilepticus; F17.200 Nicotine dependence, unspecified, uncomplicated; F11.90 Opioid use, unspecified, uncomplicated; Z86.73 Personal history of transient ischemic attack (TIA), and cerebral infarction without residual deficits; Z79.899 Other long term (current) drug therapy

== ENCOUNTER → 2024-10-08 | Outpatient (CLI) | payer MEDICARE ==
[~2024-10-08] VITALS: Ht 157.5 cm; Wt 51.4 kg
[~2024-10-08] MED LIST changes: +ACET32TAB PO; +COLA100C5 PO; +MORP1SOL4 PO; +NARC1SPR NARES; +OXYC-517 PO; +PANT40TA29 PO; +PRED20TA PO; +SENN8.6T58 PO
[2024-10-08 14:10] VITALS: BP 152/92; O2SAT 99
== END ==
LOC: M PAL 13:58
PROVIDERS: ATTEND Physician Assistant
DX: Z51.5 Encounter for palliative care (principal); N18.6 End stage renal disease; Z99.2 Dependence on renal dialysis; Q61.9 Cystic kidney disease, unspecified; M54.50 Low back pain, unspecified; Z79.891 Long term (current) use of opiate analgesic; K59.00 Constipation, unspecified; Z79.899 Other long term (current) drug therapy; Z79.82 Long term (current) use of aspirin

== ENCOUNTER 2024-10-11 08:06 | Emergency (ER) | payer MEDICARE ==
[~2024-10-11] VITALS: Ht 157.5 cm; Wt 51.8 kg
[2024-10-11 08:14] VITALS: TEMP 96.5
[2024-10-11] MEDS: ONDANSETRON 4MG TAB PO ONE (09:32)
[2024-10-11] MEDS: predniSONE 20 MG TAB PO ONE (09:32)
[2024-10-11] MEDS: HYDROMORPHONE HCL 0.5 MG/ 0.5 ML SYRINGE IV PRN (09:34)
[2024-10-11 09:37] LABS: BASO % 0.2 % (0.0-1.0); EOS # 0.4 10^3/uL (0.0-0.5); HEMATOCRIT 34.8 % (36.0-47.0); HEMOGLOBIN 11.3 g/dl (12.0-15.5); LYMPH # 1.4 10^3/uL (1.5-5.0); LYMPH % 17.2 % (24.0-44.0); MEAN CORPUSCULAR HEMOGLOBIN 30.4 pg (27.0-33.0); MEAN CORPUSCULAR HGB CONC 32.5 g/dl (32.0-36.5); MEAN CORPUSCULAR VOLUME 93.5 fl (80.0-96.0); MONO # 0.6 10^3/uL (0.0-0.8); NEUTROPHILS # 5.6 10^3/uL (1.5-8.5); NEUTROPHILS % 70.2 % (36.0-66.0); PLATELET COUNT, AUTOMATED 151 10^3/uL (150-450); RED BLOOD COUNT 3.72 10^6/uL (4.00-5.40)
[2024-10-11 10:20] LABS: CALCIUM LEVEL 8.4 MG/DL (8.5-10.1); CREATININE FOR GFR 2.71 MG/DL (0.55-1.30); GLOMERULAR FILTRATION RATE 20.6 (>51); POTASSIUM SERUM 4.3 MMOL/L (3.5-5.1)
[2024-10-11] MEDS ORDERED: PRED20TA PO (10:32)
[2024-10-11] MEDS: **hydrALAZINE** 50 MG TAB PO ONE (10:34)
[2024-10-11] MEDS ORDERED: KETOROLAC 30 MG/ML 1ML VIAL IV ONE (10:45)
[2024-10-11 10:59] VITALS: BP 180/100; O2SAT 96
== END 2024-10-11 11:01 | disposition home or self-care (01) ==
LOC: M ED 08:06
DX: I10 Essential (primary) hypertension (principal); M79.605 Pain in left leg; Q61.2 Polycystic kidney, adult type; Z99.2 Dependence on renal dialysis; E78.5 Hyperlipidemia, unspecified; J90 Pleural effusion, not elsewhere classified; Z87.19 Personal history of other diseases of the digestive system; Z79.82 Long term (current) use of aspirin; Z79.899 Other long term (current) drug therapy
CPT/HCPCS: 36415; 80048; 85025; 96374; 96376; 99284; J1171; J7512

== ENCOUNTER → 2024-10-13 | Outpatient (CLI) | payer MEDICARE | LOC: M PAL 14:29 | PROVIDERS: ATTEND Physician Assistant | DX: Z51.5 Encounter for palliative care (principal); N18.6 End stage renal disease; Z99.2 Dependence on renal dialysis; Q61.2 Polycystic kidney, adult type; M54.50 Low back pain, unspecified; Z79.891 Long term (current) use of opiate analgesic; Z79.82 Long term (current) use of aspirin; Z79.02 Long term (current) use of antithrombotics/antiplatelets; Z79.899 Other long term (current) drug therapy ==

== ENCOUNTER → 2024-10-20 | Outpatient (CLI) | payer MEDICARE ==
[~2024-10-20] VITALS: Ht 157.5 cm; Wt 53.9 kg
[~2024-10-20] MED LIST changes: +OXYC10TA12 PO
[2024-10-20 15:35] VITALS: BP 177/97; O2SAT 98
== END ==
LOC: M PAL 15:17
PROVIDERS: ATTEND Physician Assistant
DX: Z51.5 Encounter for palliative care (principal); N18.6 End stage renal disease; Z99.2 Dependence on renal dialysis; Q61.2 Polycystic kidney, adult type; M54.50 Low back pain, unspecified; Z79.82 Long term (current) use of aspirin; Z79.891 Long term (current) use of opiate analgesic; Z79.899 Other long term (current) drug therapy

== ENCOUNTER → 2024-11-05 | Outpatient (CLI) | payer MEDICARE ==
[~2024-11-05] VITALS: Ht 157.5 cm; Wt 52.4 kg
[~2024-11-05] MED LIST changes: -PREG25CA PO; +PREG25CA63 PO
[2024-11-05 15:32] VITALS: BP 181/101; O2SAT 96
== END ==
LOC: M PAL 15:23
PROVIDERS: ATTEND Physician Assistant
DX: Z51.5 Encounter for palliative care (principal); N18.6 End stage renal disease; M54.50 Low back pain, unspecified; R10.9 Unspecified abdominal pain; Z79.891 Long term (current) use of opiate analgesic; Z79.899 Other long term (current) drug therapy; K59.09 Other constipation

== ENCOUNTER → 2024-11-19 | Outpatient (CLI) | payer MEDICARE, BC ==
[~2024-11-19] VITALS: Ht 160 cm; Wt 51.8 kg
[2024-11-19 15:42] VITALS: BP 178/97; O2SAT 98
== END ==
LOC: M PAL 15:29
PROVIDERS: ATTEND Physician Assistant
DX: Z51.5 Encounter for palliative care (principal); N18.6 End stage renal disease; Z99.2 Dependence on renal dialysis; Q61.2 Polycystic kidney, adult type; M54.50 Low back pain, unspecified; Z79.899 Other long term (current) drug therapy; Z79.82 Long term (current) use of aspirin

== ENCOUNTER 2024-12-29 19:00 | Inpatient (IN) | payer MEDICARE, BC ==
[~2024-12-29] VITALS: Ht 157.5 cm; Wt 54.1 kg
[~2024-12-29 19:00] MED LIST changes: +ACET1TAB55 PO; +LEVO1TAB39 PO; +PRED5TA PO; +SENN-186 PO
[2024-12-29 20:13] LABS: ABG BASE EXCESS 3.1 (-2.0-2.0); ABG HCO3 26.6 MMOL/L (22.0-26.0); ABG O2 SATURATION 96.6 % (95.0-99.0); ABG PARTIAL PRESSURE CO2 36.1 mmHg (35.0-45.0); ABG PARTIAL PRESSURE O2 86.2 mmHg (75.0-100.0); ABG STANDARD HCO3 27.3 MMOL/L. (22.0-26.0); ABG TOTAL CO2 27.7 MMOL/L (22.0-29.0); ABG pH (ARTERIAL) 7.485 UNITS (7.350-7.450)
[2024-12-29 20:32] LABS: BASO # 0.0 10^3/uL (0.0-0.2); BASO % 0.4 % (0.0-1.0); EOS # 0.2 10^3/uL (0.0-0.5); EOS % 2.7 % (0.0-3.0); LYMPH # 1.0 10^3/uL (1.5-5.0); LYMPH % 11.3 % (24.0-44.0); MONO # 0.6 10^3/uL (0.0-0.8); MONO % 6.6 % (2.0-8.0); NEUTROPHILS # 6.7 10^3/uL (1.5-8.5); NEUTROPHILS % 78.8 % (36.0-66.0); PLATELET COUNT, AUTOMATED 127 10^3/uL (150-450)
[2024-12-29 20:45] LABS: INR 1.05
[2024-12-29 20:52] LABS: CK-MB VALUE MASS 4.6 NG/ML (<3.6)
[2024-12-29 20:53] LABS: CPK CREATINE PHOSPHOKINASE 131.0 U/L (34-145); MB/CK RELATIVE INDEX 3.51 (< OR =4)
[2024-12-29 20:55] LABS: THYROXINE (T4) 8.3 UG/DL (4.5-10.9)
[2024-12-29 21:08] LABS: ALT/SGPT 22.0 U/L (7.0-40); AST/SGOT 32.0 U/L (<34); CALCIUM LEVEL 8.2 MG/DL (8.5-10.1); CARBON DIOXIDE LEVEL 29.0 MMOL/L (20-31); CHLORIDE LEVEL 99.0 MMOL/L (98-107); CREATININE FOR GFR 5.49 MG/DL (0.55-1.30); GLOMERULAR FILTRATION RATE 8.8 (>51); MAGNESIUM LEVEL 2.1 MG/DL (1.8-2.4); POTASSIUM SERUM 6.6 MMOL/L (3.5-5.1); SODIUM LEVEL 141.0 MMOL/L (136-145)
[2024-12-29] MEDS: DEXTROSE 50% 50 ML SYRINGE IV ONE ×2 (21:54→22:17)
[2024-12-29] MEDS: FUROSEMIDE 100 MG/10 ML VIAL IV ONE (22:15)
[2024-12-29] MEDS: CALCIUM GLUCONATE 1,000 MG in DEXTROSE 5% (D5W) MINI-BAG PLU 100 ML IV ONE (22:15)
[2024-12-29] MEDS: PATIROMER SORBITEX CALCIUM 8.4GM POWDER PACKET PO ONE (22:16)
[2024-12-29] MEDS: HumuLIN R (REGULAR) INSULIN (NovoLIN R) **100 U/ML** PER UNIT IV ONE (22:16)
[2024-12-29] MEDS ORDERED: HOME MED LIST COMPLETE! XX SCH (22:20)
[2024-12-29] MEDS ORDERED: LEVALBUTEROL 1.25 MG 0.5ML CONCENTRATE NEB NEB PRN (22:20)
[2024-12-29] MEDS ORDERED: SODIUM CHLORIDE 0.9% 1000 ML IV PRN (22:25)
[2024-12-29] MEDS ORDERED: HEPARIN 1,000 UNITS/ML 10 ML VIAL (FOR RADIOLOGY & DIALYSIS ONLY) IV PRN (22:25)
[2024-12-29] MEDS: ALBUTEROL SULFATE 2.5 MG/0.5 ML INH CONCENTRATE NEB SOLN INH ONE (22:41)
[2024-12-29 23:49] VITALS: BP 137/92; O2SAT 87
[2024-12-30] VITALS (39 sets, daily range): BP systolic 130–190; BP diastolic 77–105; TEMP 98.3–99.8; O2SAT 92–100
[2024-12-30] MEDS: HEPARIN 1,000 UNITS/ML 10 ML VIAL (FOR RADIOLOGY & DIALYSIS ONLY) XX SCH (00:40)
[2024-12-30 05:43] LABS: PLATELET COUNT, AUTOMATED 123 10^3/uL (150-450)
[2024-12-30 06:38] LABS: ALT/SGPT 18.0 U/L (7.0-40); AST/SGOT 26.0 U/L (<34); CALCIUM LEVEL 8.3 MG/DL (8.5-10.1); CARBON DIOXIDE LEVEL 27.0 MMOL/L (20-31); CHLORIDE LEVEL 100.0 MMOL/L (98-107); CREATININE FOR GFR 3.46 MG/DL (0.55-1.30); GLOMERULAR FILTRATION RATE 15.4 (>51); MAGNESIUM LEVEL 1.9 MG/DL (1.8-2.4); POTASSIUM SERUM 4.5 MMOL/L (3.5-5.1); SODIUM LEVEL 140.0 MMOL/L (136-145)
[2024-12-30 07:52] LABS: PHOSPHORUS LEVEL 4.8 MG/DL (2.5-4.9)
[2024-12-30] MEDS: ASPIRIN 81 MG ENTERIC TABLET PO SCH (08:17)
[2024-12-30] MEDS: LOSARTAN 50 MG TABLET PO SCH (08:17)
[2024-12-30] MEDS: PANTOPRAZOLE 40MG VIAL IV SCH (08:18)
[2024-12-30] MEDS: amLODIPine 10 MG TAB PO SCH (08:18)
[2024-12-30] MEDS: LACOSAMIDE 50 MG TAB PO SCH (08:18)
[2024-12-30] MEDS: HEPARIN SOD 5000 UNITS/ML 1 ML VIAL/SYRINGE SC SCH (08:18)
[2024-12-30] MEDS: NICOTINE 21MG/24HR 1 EA TRANSDERMAL TD SCH (09:00)
[2024-12-30] MEDS ORDERED: NITROGLYCERIN 0.4MG SUBL TABLET SL PRN (15:30)
[2024-12-30] MEDS: GABAPENTIN 300 MG CAP PO SCH (20:24)
[2024-12-30] MEDS: **hydrALAZINE** 50 MG TAB PO SCH (20:24)
[2024-12-30] MEDS: ATORVASTATIN 20 MG TAB PO SCH (20:24)
[2024-12-30] MEDS: TERAZOSIN 1 MG CAP PO SCH (21:57)
[2024-12-31] VITALS: BP 153/92; O2SAT 98
[2024-12-31 04:00] VITALS: TEMP 99.4; O2SAT 94
[2024-12-31] MEDS ORDERED: SODIUM CHLORIDE 0.9% 1000 ML IV PRN (06:00)
[2024-12-31] MEDS ORDERED: HEPARIN 1,000 UNITS/ML 10 ML VIAL (FOR RADIOLOGY & DIALYSIS ONLY) IV PRN (06:00)
[2024-12-31 07:58] VITALS: BP 160/90; TEMP 99.3; O2SAT 93
[2024-12-31 08:08] LABS: BASO # 0.0 10^3/uL (0.0-0.2); BASO % 0.3 % (0.0-1.0); EOS # 0.2 10^3/uL (0.0-0.5); EOS % 3.0 % (0.0-3.0); LYMPH # 0.9 10^3/uL (1.5-5.0); LYMPH % 14.6 % (24.0-44.0); MONO # 0.5 10^3/uL (0.0-0.8); MONO % 8.0 % (2.0-8.0); NEUTROPHILS # 4.6 10^3/uL (1.5-8.5); NEUTROPHILS % 73.9 % (36.0-66.0); PLATELET COUNT, AUTOMATED 111 10^3/uL (150-450)
[2024-12-31 08:32] LABS: CALCIUM LEVEL 8.2 MG/DL (8.5-10.1); CARBON DIOXIDE LEVEL 25.0 MMOL/L (20-31); CHLORIDE LEVEL 101.0 MMOL/L (98-107); CREATININE FOR GFR 5.0 MG/DL (0.55-1.30); GLOMERULAR FILTRATION RATE 9.9 (>51); POTASSIUM SERUM 5.2 MMOL/L (3.5-5.1); SODIUM LEVEL 139.0 MMOL/L (136-145)
[2024-12-31] MEDS: HEPARIN 1,000 UNITS/ML 10 ML VIAL (FOR RADIOLOGY & DIALYSIS ONLY) XX SCH (10:03)
[2024-12-31 12:10] VITALS: BP 154/70; TEMP 98.9; O2SAT 97
[2024-12-31 21:44] VITALS: BP 164/91; O2SAT 95
[2025-01-01] MEDS ORDERED: HEPARIN 1,000 UNITS/ML 10 ML VIAL (FOR RADIOLOGY & DIALYSIS ONLY) XX SCH (00:15)
[2025-01-01] MEDS ORDERED: SODIUM CHLORIDE 0.9% 1000 ML IV PRN (00:15)
[2025-01-01 07:45] LABS: BASO # 0.0 10^3/uL (0.0-0.2); BASO % 0.2 % (0.0-1.0); EOS # 0.2 10^3/uL (0.0-0.5); EOS % 4.1 % (0.0-3.0); LYMPH # 0.9 10^3/uL (1.5-5.0); LYMPH % 18.3 % (24.0-44.0); MONO # 0.5 10^3/uL (0.0-0.8); MONO % 10.1 % (2.0-8.0); NEUTROPHILS # 3.4 10^3/uL (1.5-8.5); NEUTROPHILS % 67.1 % (36.0-66.0); PLATELET COUNT, AUTOMATED 132 10^3/uL (150-450)
[2025-01-01 08:09] LABS: CALCIUM LEVEL 8.6 MG/DL (8.5-10.1); CARBON DIOXIDE LEVEL 25.0 MMOL/L (20-31); CHLORIDE LEVEL 103.0 MMOL/L (98-107); CREATININE FOR GFR 3.77 MG/DL (0.55-1.30); GLOMERULAR FILTRATION RATE 13.9 (>51); POTASSIUM SERUM 4.6 MMOL/L (3.5-5.1); SODIUM LEVEL 142.0 MMOL/L (136-145)
[2025-01-01 12:00] VITALS: BP 154/90; TEMP 98.2
[2025-01-01] MEDS: DARBEPOETIN 100 MCG/0.5 ML *DIALYSIS* SYRINGE IV SCH (13:43)
[2025-01-01] MEDS: HEPARIN 1,000 UNITS/ML 10 ML VIAL (FOR RADIOLOGY & DIALYSIS ONLY) IV PRN (13:43)
[2025-01-01 20:19] VITALS: BP 158/94; TEMP 98.1; O2SAT 97
[2025-01-02 04:26] VITALS: BP 158/95; TEMP 97.9; O2SAT 93
[2025-01-02] MEDS ORDERED: SODIUM CHLORIDE 0.9% 1000 ML IV PRN (06:00)
[2025-01-02] MEDS ORDERED: HEPARIN 1,000 UNITS/ML 10 ML VIAL (FOR RADIOLOGY & DIALYSIS ONLY) XX SCH (06:00)
[2025-01-02 08:26] LABS: PLATELET COUNT, AUTOMATED 141 10^3/uL (150-450)
[2025-01-02 08:40] LABS: ALT/SGPT 16.0 U/L (7.0-40); AST/SGOT 20.0 U/L (<34); CALCIUM LEVEL 8.9 MG/DL (8.5-10.1); CARBON DIOXIDE LEVEL 26.0 MMOL/L (20-31); CHLORIDE LEVEL 104.0 MMOL/L (98-107); CREATININE FOR GFR 3.31 MG/DL (0.55-1.30); GLOMERULAR FILTRATION RATE 16.2 (>51); MAGNESIUM LEVEL 1.9 MG/DL (1.8-2.4); POTASSIUM SERUM 4.4 MMOL/L (3.5-5.1); SODIUM LEVEL 144.0 MMOL/L (136-145)
[2025-01-02 08:42] VITALS: BP 127/85
[2025-01-02] MEDS: HEPARIN 1,000 UNITS/ML 10 ML VIAL (FOR RADIOLOGY & DIALYSIS ONLY) IV PRN (12:41)
== END 2025-01-02 15:00 | disposition home or self-care (01) | DRG 640 ==
LOC: M ED 19:00 → M ED INP 22:18 → M ICU 23:44 → M MS5PR 12-31 11:57
PROVIDERS: ADMIT Student in an Organized Health Care Education/Training Program; ATTEND Internal Medicine
PROC: 5A1D70Z Performance of Urinary Filtration, Intermittent, Less than 6 Hours Per Day (ICD-10-PCS; principal; 2024-12-29)
DX: E87.70 Fluid overload, unspecified (principal); N18.6 End stage renal disease; J96.01 Acute respiratory failure with hypoxia; I12.0 Hypertensive chronic kidney disease with stage 5 chronic kidney disease or end stage renal disease; Q61.3 Polycystic kidney, unspecified; I16.9 Hypertensive crisis, unspecified; E87.5 Hyperkalemia; E78.5 Hyperlipidemia, unspecified; G40.909 Epilepsy, unspecified, not intractable, without status epilepticus; F17.200 Nicotine dependence, unspecified, uncomplicated; M54.9 Dorsalgia, unspecified; I35.0 Nonrheumatic aortic (valve) stenosis; D63.8 Anemia in other chronic diseases classified elsewhere; G89.29 Other chronic pain; Z99.2 Dependence on renal dialysis; Z79.82 Long term (current) use of aspirin; Z79.899 Other long term (current) drug therapy; Z91.041 Radiographic dye allergy status; Z86.73 Personal history of transient ischemic attack (TIA), and cerebral infarction without residual deficits

== ENCOUNTER → 2025-01-26 | Outpatient (CLI) | payer MEDICARE, BC ==
[~2025-01-26] VITALS: Ht 157.5 cm; Wt 46.9 kg
[~2025-01-26] MED LIST changes: +OXYC-1 PO
[2025-01-26 16:16] VITALS: BP 134/81; O2SAT 98
== END ==
LOC: M PAL 15:48
PROVIDERS: ATTEND Physician Assistant
DX: Z51.5 Encounter for palliative care (principal); N18.6 End stage renal disease; Z99.2 Dependence on renal dialysis; Q61.9 Cystic kidney disease, unspecified; M54.50 Low back pain, unspecified; Z79.891 Long term (current) use of opiate analgesic; Z91.041 Radiographic dye allergy status; Z79.899 Other long term (current) drug therapy; Z79.82 Long term (current) use of aspirin

== ENCOUNTER → 2025-02-23 | Outpatient (CLI) | payer MEDICARE, BC ==
[~2025-02-23] VITALS: Ht 157.5 cm; Wt 50.6 kg
[~2025-02-23] MED LIST changes: -IBUP-1022 PO; +IBUP600T42 PO; -LACO100T PO; +LACO100T11 PO; +LACT20EL PO
[2025-02-23 16:11] VITALS: BP 166/92; O2SAT 97
== END ==
LOC: M PAL 15:56
PROVIDERS: ATTEND Physician Assistant
DX: Z51.5 Encounter for palliative care (principal); N18.6 End stage renal disease; Q61.2 Polycystic kidney, adult type; Z79.891 Long term (current) use of opiate analgesic; Z91.041 Radiographic dye allergy status; Z79.82 Long term (current) use of aspirin; Z79.02 Long term (current) use of antithrombotics/antiplatelets; Z79.899 Other long term (current) drug therapy

== ENCOUNTER → 2025-03-26 | Outpatient (CLI) | payer MEDICARE, BC ==
[~2025-03-26] MED LIST changes: +NARC1SPR; +OXYC30TA PO
== END ==
LOC: M PAL 14:48
PROVIDERS: ATTEND Physician Assistant
DX: Z51.5 Encounter for palliative care (principal); Z99.2 Dependence on renal dialysis; N18.6 End stage renal disease; Q61.3 Polycystic kidney, unspecified; M54.50 Low back pain, unspecified; R10.9 Unspecified abdominal pain; Z79.891 Long term (current) use of opiate analgesic; Z91.041 Radiographic dye allergy status; Z79.899 Other long term (current) drug therapy; Z79.82 Long term (current) use of aspirin; Z79.02 Long term (current) use of antithrombotics/antiplatelets

== ENCOUNTER 2025-04-04 10:45 | Emergency (ER) | payer MEDICARE, BC ==
[~2025-04-04] VITALS: Ht 157.5 cm; Wt 55.0 kg
[2025-04-04 10:51] VITALS: TEMP 97.3
[2025-04-04 11:32] LABS: BASO # 0.0 10^3/uL (0.0-0.2); BASO % 0.6 % (0.0-1.0); EOS # 0.2 10^3/uL (0.0-0.5); EOS % 5.1 % (0.0-3.0); LYMPH # 1.0 10^3/uL (1.5-5.0); LYMPH % 20.6 % (24.0-44.0); MONO # 0.5 10^3/uL (0.0-0.8); MONO % 10.6 % (2.0-8.0); NEUTROPHILS # 3.0 10^3/uL (1.5-8.5); NEUTROPHILS % 63.1 % (36.0-66.0); PLATELET COUNT, AUTOMATED 212 10^3/uL (150-450)
[2025-04-04 11:58] LABS: ALT/SGPT < 9 U/L (7.0-40); AST/SGOT 12 U/L (<34); CALCIUM LEVEL 8.7 MG/DL (8.5-10.1); CARBON DIOXIDE LEVEL 34 MMOL/L (20-31); CHLORIDE LEVEL 98 MMOL/L (98-107); CREATININE FOR GFR 5.55 MG/DL (0.55-1.30); GLOMERULAR FILTRATION RATE 8.7 (>51); POTASSIUM SERUM 5.4 MMOL/L (3.5-5.1); SODIUM LEVEL 141 MMOL/L (136-145)
[2025-04-04] MEDS: MORPHINE 4 MG/ML 1 ML VIAL IV ONE (15:45)
[2025-04-04] MEDS ORDERED: HOME MED LIST COMPLETE! XX SCH (17:05)
[2025-04-04] MEDS: PATIROMER SORBITEX CALCIUM 8.4GM POWDER PACKET PO ONE (17:55)
[2025-04-04 19:40] LABS: APPEARANCE, BODY FLUID CLEAR (CLEAR); ASCITES FL COLOR PALE YELLOW (COLORLESS); SOURCE, BODY FLUID ASCITES
[2025-04-04 20:12] VITALS: BP 190/100; O2SAT 98
== END 2025-04-04 20:19 | disposition home or self-care (01) ==
LOC: M ED 10:45
DX: R18.8 Other ascites (principal); I12.0 Hypertensive chronic kidney disease with stage 5 chronic kidney disease or end stage renal disease; E78.5 Hyperlipidemia, unspecified; Z99.2 Dependence on renal dialysis; Z86.73 Personal history of transient ischemic attack (TIA), and cerebral infarction without residual deficits; I25.10 Atherosclerotic heart disease of native coronary artery without angina pectoris; Q61.3 Polycystic kidney, unspecified; Z79.82 Long term (current) use of aspirin; Z79.899 Other long term (current) drug therapy; Z91.041 Radiographic dye allergy status
CPT/HCPCS: 49083; 74176; 80048; 80076; 82042; 82150; 83615; 83690; 84157; 84478; 85025; 87070; 87205; 89051; 96374; 99284; J3010

== ENCOUNTER 2025-04-12 10:42 | Emergency (ER) | payer MEDICARE, BC ==
[~2025-04-12] VITALS: Ht 157.5 cm; Wt 52.3 kg
[2025-04-12 11:45] VITALS: BP 111/83; TEMP 98.6; O2SAT 96
[2025-04-16] MEDS ORDERED: HYDR16TA3 PO (13:49)
[2025-04-16] MEDS ORDERED: DILA4TAB13 PO (13:52)
== END 2025-04-12 11:50 | disposition home or self-care (01) ==
LOC: M ED 10:42
DX: R18.8 Other ascites (principal); E78.5 Hyperlipidemia, unspecified; G40.909 Epilepsy, unspecified, not intractable, without status epilepticus; N18.6 End stage renal disease; I35.9 Nonrheumatic aortic valve disorder, unspecified; Z91.041 Radiographic dye allergy status; Z79.1 Long term (current) use of non-steroidal anti-inflammatories (NSAID); Z79.82 Long term (current) use of aspirin; Z79.02 Long term (current) use of antithrombotics/antiplatelets; Z79.899 Other long term (current) drug therapy

== ENCOUNTER → 2025-04-13 | Outpatient (CLI) | payer MEDICARE, BC ==
[~2025-04-13] MED LIST changes: +DILA4TAB13 PO; +HYDR16TA3 PO; +OXYC40TA29 PO
== END ==
LOC: M PAL 14:11
PROVIDERS: ATTEND Physician Assistant
DX: Z51.5 Encounter for palliative care (principal); N18.6 End stage renal disease; Q61.3 Polycystic kidney, unspecified; M54.50 Low back pain, unspecified; Z79.891 Long term (current) use of opiate analgesic; Z91.041 Radiographic dye allergy status; Z79.82 Long term (current) use of aspirin; Z79.02 Long term (current) use of antithrombotics/antiplatelets; Z79.899 Other long term (current) drug therapy

== ENCOUNTER → 2025-04-14 | Outpatient (CLI) | payer MEDICARE, BC ==
[~2025-04-14] MED LIST changes: +ACETAMINOPHEN 325 MG TAB PO PRN; -OXYC40TA29 PO
[2025-04-14 13:05] VITALS: TEMP 98.6
[2025-04-14 14:12] LABS: APPEARANCE, BODY FLUID HAZY (CLEAR); ASCITES FL COLOR PALE YELLOW (COLORLESS); SOURCE, BODY FLUID ASCITES
[2025-04-14 14:14] VITALS: BP 116/87; O2SAT 96
== END ==
LOC: M IRPRO 12:51
PROVIDERS: ATTEND Family Medicine
DX: R18.8 Other ascites (principal)

== ENCOUNTER → 2025-04-27 | Outpatient (CLI) | payer MEDICARE, BC ==
[~2025-04-27] MED LIST changes: -ACETAMINOPHEN 325 MG TAB PO PRN; +OXYC20TA2 PO; +OXYC40TA29 PO
== END ==
LOC: M PAL 13:19
PROVIDERS: ATTEND Physician Assistant
DX: Z51.5 Encounter for palliative care (principal); N18.6 End stage renal disease; Z99.2 Dependence on renal dialysis; Q61.3 Polycystic kidney, unspecified; R10.A0 Flank pain, unspecified side; M54.50 Low back pain, unspecified; Z79.891 Long term (current) use of opiate analgesic; Z90.5 Acquired absence of kidney; Z91.041 Radiographic dye allergy status; Z79.899 Other long term (current) drug therapy; Z79.82 Long term (current) use of aspirin; Z79.02 Long term (current) use of antithrombotics/antiplatelets

== ENCOUNTER → 2025-04-27 | Outpatient (CLI) | payer MEDICARE, BC ==
[2025-04-27 09:57] VITALS: TEMP 98.7
[2025-04-27 11:19] VITALS: BP 163/99; O2SAT 96
== END ==
LOC: M IRPRO 09:48
PROVIDERS: ATTEND Family Medicine
DX: R18.8 Other ascites (principal)

== ENCOUNTER → 2025-05-04 | Outpatient (CLI) | payer MEDICARE, BC ==
[2025-05-04 11:13] VITALS: TEMP 98.4
[2025-05-04 11:45] VITALS: BP 141/80; O2SAT 97
[2025-05-04 17:11] LABS: CA 125 39.0 U/ML (<35)
[2025-05-04 17:12] LABS: CA19-9 TUMOR MARKER,CARBOHYDRA 24.0 U/ML (<35.0)
== END ==
LOC: M IRPRO 11:02
PROVIDERS: ATTEND Internal Medicine
DX: R18.8 Other ascites (principal); Z09 Encounter for follow-up examination after completed treatment for conditions other than malignant neoplasm; R97.1 Elevated cancer antigen 125 [CA 125]; R97.8 Other abnormal tumor markers

== ENCOUNTER → 2025-05-08 | Outpatient (CLI) | payer MEDICARE, BC | LOC: M IRPRO 10:41 | PROVIDERS: ATTEND Internal Medicine | DX: R18.8 Other ascites (principal) ==

== ENCOUNTER → 2025-05-11 | Outpatient (CLI) | payer MEDICARE, BC ==
[2025-05-11 08:35] VITALS: TEMP 99.6
[2025-05-11 10:23] VITALS: BP 160/90; O2SAT 96
== END ==
LOC: M IRPRO 08:28
PROVIDERS: ATTEND Internal Medicine
DX: R18.8 Other ascites (principal)

== ENCOUNTER → 2025-05-18 | Outpatient (CLI) | payer MEDICARE, BC ==
[2025-05-18 12:13] VITALS: TEMP 99.6
[2025-05-18 12:30] VITALS: BP 132/84; O2SAT 95
== END ==
LOC: M IRPRO 12:04
PROVIDERS: ATTEND Internal Medicine
DX: R18.8 Other ascites (principal)

== ENCOUNTER → 2025-05-20 | Outpatient (CLI) | payer MEDICARE, BC ==
[2025-05-20 11:38] VITALS: TEMP 99.4
[2025-05-20 12:10] VITALS: BP 132/77; O2SAT 97
== END ==
LOC: M IRPRO 11:12
PROVIDERS: ATTEND Internal Medicine
DX: R18.8 Other ascites (principal)

== ENCOUNTER → 2025-05-25 | Outpatient (CLI) | payer MEDICARE, BC ==
[~2025-05-25] MED LIST changes: +ACETAMINOPHEN 325 MG TAB PO PRN
[2025-05-25 07:45] VITALS: TEMP 99.1
[2025-05-25 08:46] VITALS: BP 183/108; O2SAT 95
== END ==
LOC: M IRPRO 07:38
PROVIDERS: ATTEND Internal Medicine
DX: R18.8 Other ascites (principal)

== ENCOUNTER → 2025-06-01 | Outpatient (CLI) | payer MEDICARE, BC ==
[~2025-06-01] MED LIST changes: -ACETAMINOPHEN 325 MG TAB PO PRN
== END ==
LOC: M IRPRO 07:35
PROVIDERS: ATTEND Internal Medicine
DX: R18.8 Other ascites (principal)

== ENCOUNTER → 2025-06-05 | Outpatient (CLI) | payer MEDICARE, BC ==
[~2025-06-05] MED LIST changes: +ACETAMINOPHEN 325 MG TAB PO PRN
[2025-06-05 15:09] VITALS: BP 134/80; O2SAT 97
== END ==
LOC: M IRPRO 13:46
PROVIDERS: ATTEND Internal Medicine
DX: R18.8 Other ascites (principal)

== ENCOUNTER → 2025-06-09 | Outpatient (CLI) | payer MEDICARE, BC ==
[~2025-06-09] MED LIST changes: -ACETAMINOPHEN 325 MG TAB PO PRN
== END ==
LOC: M PAL 15:50
PROVIDERS: ATTEND Physician Assistant
DX: Z51.5 Encounter for palliative care (principal); N18.6 End stage renal disease; Z99.2 Dependence on renal dialysis; Q61.3 Polycystic kidney, unspecified; M54.50 Low back pain, unspecified; R10.A0 Flank pain, unspecified side; Z91.041 Radiographic dye allergy status; Z79.82 Long term (current) use of aspirin; Z79.02 Long term (current) use of antithrombotics/antiplatelets; Z79.899 Other long term (current) drug therapy

== ENCOUNTER → 2025-06-12 | Outpatient (CLI) | payer MEDICARE, BC | LOC: M IRPRO 13:19 | PROVIDERS: ATTEND Internal Medicine | DX: R18.8 Other ascites (principal) ==

== ENCOUNTER → 2025-06-17 | Outpatient (CLI) | payer MEDICARE, BC | LOC: M RAD 15:15 | PROVIDERS: ATTEND Radiology Diagnostic Radiology | DX: R18.8 Other ascites (principal); N18.6 End stage renal disease; Z99.2 Dependence on renal dialysis; Z87.718 Personal history of other specified (corrected) congenital malformations of genitourinary system; Z79.899 Other long term (current) drug therapy; Z91.041 Radiographic dye allergy status; Z86.79 Personal history of other diseases of the circulatory system; Z95.828 Presence of other vascular implants and grafts; Z87.891 Personal history of nicotine dependence | CPT/HCPCS: 76705; G0463 ==

== ENCOUNTER → 2025-06-17 | Outpatient (POV) | payer MEDICARE, BC | LOC: M IRPOV 14:15 | PROVIDERS: ATTEND Radiology Diagnostic Radiology | DX: N18.6 End stage renal disease (principal); R18.8 Other ascites; Z99.2 Dependence on renal dialysis; Z87.891 Personal history of nicotine dependence; Z79.82 Long term (current) use of aspirin; Z79.891 Long term (current) use of opiate analgesic; Z79.899 Other long term (current) drug therapy ==

== ENCOUNTER → 2025-06-19 | Outpatient (CLI) | payer MEDICARE, BC | LOC: M IRPRO 10:38 | PROVIDERS: ATTEND Internal Medicine | DX: R18.8 Other ascites (principal); Z53.9 Procedure and treatment not carried out, unspecified reason ==

== ENCOUNTER → 2025-06-22 | Outpatient (CLI) | payer MEDICARE, BC ==
[~2025-06-22] MED LIST changes: +ACETAMINOPHEN 325 MG TAB PO PRN
[2025-06-22 09:30] VITALS: TEMP 98.4
[2025-06-22 11:15] VITALS: BP 149/82; O2SAT 98
[2025-06-22 12:01] LABS: APPEARANCE, BODY FLUID CLOUDY (CLEAR); PERITONEAL FL COLOR RED (COLORLESS); SOURCE, BODY FLUID PERITONEAL
== END ==
LOC: M IRPRO 09:09
PROVIDERS: ATTEND Internal Medicine
DX: R18.8 Other ascites (principal)

== ENCOUNTER → 2025-06-29 | Outpatient (CLI) | payer MEDICARE, BC ==
[~2025-06-29] MED LIST changes: -ACETAMINOPHEN 325 MG TAB PO PRN
[2025-06-29 07:20] VITALS: TEMP 99.2
[2025-06-29 08:16] VITALS: BP 178/99; O2SAT 97
[2025-06-29 09:15] LABS: SOURCE, BODY FLUID ASCITES
[2025-06-29 09:16] LABS: ASCITES FL COLOR ORANGE (COLORLESS)
[2025-06-29 09:17] LABS: APPEARANCE, BODY FLUID HAZY (CLEAR)
== END ==
LOC: M IRPRO 07:02
PROVIDERS: ATTEND Internal Medicine
DX: R18.8 Other ascites (principal)